=== PATIENT | male | born 1945 | race Caucasian/White ===

== ENCOUNTER 2016-06-15 12:24 | Emergency (ER) | payer MEDICAID, OTHER ==
[~2016-06-15] VITALS: Ht 170.2 cm; Wt 59.0 kg
[2016-06-15 12:27] VITALS: BP 157/103
[2016-06-15] MEDS ORDERED: ACETAMINOPH W/CODEINE #3 TAB UD PO ONE (13:15)
[2016-06-15] MEDS ORDERED: ULTR50TA PO (13:51)
--- NOTE | 2016-06-15 14:13 | REP ---
RIGHT WRIST SERIES: Four views of the right wrist are performed. There is no evidence of acute fracture or dislocation. There is moderate spurring with joint space narrowing and subchondral sclerosis at the joint between the trapezium and base of first metacarpal. IMPRESSION: Degenerative changes without fracture or dislocation. Signed by George Robins MD 06/15/2016 06:21 P
== END 2016-06-15 14:13 | disposition home or self-care (01) ==
LOC: M ED 13:15
DX: S60.211A Contusion of right wrist, initial encounter (principal); X58.XXXA Exposure to other specified factors, initial encounter; Y92.89 Other specified places as the place of occurrence of the external cause; Y93.89 Activity, other specified; Y99.8 Other external cause status; J44.9 Chronic obstructive pulmonary disease, unspecified; Z85.118 Personal history of other malignant neoplasm of bronchus and lung; Z88.0 Allergy status to penicillin; Z91.041 Radiographic dye allergy status; F17.210 Nicotine dependence, cigarettes, uncomplicated

== ENCOUNTER 2017-05-14 10:12 | Inpatient (IN) | payer OTHER ==
[2017-05-14] MEDS: methylPREDNISolone INJ 125 MG/2 ML VIAL (J2930) IV ×2 (10:45→18:26)
[2017-05-14 10:54] LABS: BASO # 0.1 10^3/uL (0.0-0.2); BASO % 0.9 % (0.0-1.0); EOS # 0.2 10^3/uL (0.0-0.50); EOS % 2.1 % (0.0-3.0); HEMATOCRIT 41.4 % (42.0-52.0); HEMOGLOBIN 13.5 g/dl (14.0-18.0); IMMATURE GRANULOCYTE % 0.4 % (0-0); LYMPH # 1.4 10^3/uL (1.5-4.5); LYMPH % 17.3 % (24.0-44.0); MEAN CORPUSCULAR HEMOGLOBIN 30.5 pg (27.0-33.0); MEAN CORPUSCULAR HGB CONC 32.6 g/dl (32.0-36.5); MEAN CORPUSCULAR VOLUME 93.5 fl (80.0-96.0); MONO # 0.7 10^3/uL (0.0-0.8); MONO % 9.1 % (0.0-5.0); NEUTROPHILS # 5.6 10^3/uL (1.8-7.7); NEUTROPHILS % 70.2 % (36.0-66.0); PLATELET COUNT, AUTOMATED 282 10^3/uL (150-450); RED BLOOD COUNT 4.43 10^6/uL (4.30-6.10); RED CELL DISTRIBUTION WIDTH 14.2 % (11.5-14.5)
[2017-05-14 11:01] LABS: ABG BASE EXCESS -2.9 (-2.0-2.0); ABG HCO3 20.3 MEQ/L (22.0-26.0); ABG PARTIAL PRESSURE CO2 30.5 mmHg (35.0-45.0); ABG PARTIAL PRESSURE O2 71.7 mmHg (75.0-100.0); ABG TOTAL CO2 21.2 MEQ/L (23.0-31.0)
[2017-05-14] MEDS: IPRATROPIUM 0.5MG/ALBUTEROL 2.5MG INH SOL UD 3ML (DUONEB)(J7620) NEB ×4 (11:13→19:29)
[2017-05-14 11:20] LABS: ANION GAP 8 MEQ/L (8-16); BLOOD UREA NITROGEN 23 MG/DL (7-18); CALCIUM LEVEL 9.7 MG/DL (8.8-10.2); CARBON DIOXIDE LEVEL 25 MEQ/L (21-32); CHLORIDE LEVEL 108 MEQ/L (98-107); CPK CREATINE PHOSPHOKINASE 108 U/L (39-308); CREATININE FOR GFR 1.31 MG/DL (0.70-1.30); GLOMERULAR FILTRATION RATE 57.4 (>42); GLUCOSE, FASTING 119 MG/DL (70-100); POTASSIUM SERUM 4.7 MEQ/L (3.5-5.1); SODIUM LEVEL 141 MEQ/L (136-145); TROPONIN I 0.09 NG/ML (< 0.10)
[2017-05-14 11:21] LABS: LACTIC ACID SEPSIS PROTOCOL 3.7 MMOL/L (0.4-2.0)
[2017-05-14 11:25] LABS: CK-MB VALUE MASS 3.5 NG/ML (0.0-3.6); MB/CK RELATIVE INDEX 3.24 (< OR =4); NT-PRO BNP 7834 PG/ML (<125)
[2017-05-14 11:52] LABS: INFLUENZA A AMPLIFICATION NEGATIVE (NEGATIVE); INFLUENZA B AMPLIFICATION NEGATIVE (NEGATIVE)
[2017-05-14] MEDS ORDERED: METOPROLOL 5 MG/5 ML VIAL As Ordered (12:35)
[2017-05-14] MEDS: METOPROLOL 5 MG/5 ML VIAL IV ×3 (12:35→12:45)
[2017-05-14] MEDS: METOPROLOL TART 50 MG TAB PO (12:45)
[2017-05-14] MEDS ORDERED: ONDANSETRON 4MG/2ML VIAL (J2405) IV (13:30)
[2017-05-14] MEDS: ENOXAPARIN 60 MG/0.6 ML SYR (J1650) SC ×2 (13:42→20:46)
[2017-05-14] MEDS ORDERED: CEFTRIAXONE SOD 2 GM in APPROPRIATE DILUENT 1 EA IV (15:00)
[2017-05-14] MEDS: AZITHROMYCIN 250 MG TAB PO (17:22)
[2017-05-14] MEDS: CEFTRIAXONE SOD 2 GM in APPROPRIATE DILUENT 1 EA IV (17:33)
[2017-05-14] MEDS: ACETAMINOPHEN TAB 650MG DOSE (2X325MG) PO (20:50)
[2017-05-15] MEDS: methylPREDNISolone INJ 125 MG/2 ML VIAL (J2930) IV ×3 (02:30→17:51)
[2017-05-15 04:41] LABS: HEMATOCRIT 33.9 % (42.0-52.0); MEAN CORPUSCULAR HEMOGLOBIN 30.3 pg (27.0-33.0); MEAN CORPUSCULAR VOLUME 91.6 fl (80.0-96.0); PLATELET COUNT, AUTOMATED 228 10^3/uL (150-450); RED CELL DISTRIBUTION WIDTH 14.2 % (11.5-14.5)
[2017-05-15 04:57] LABS: HEMOGLOBIN 11.2 g/dl (14.0-18.0)
[2017-05-15 05:01] LABS: ANION GAP 8 MEQ/L (8-16); BLOOD UREA NITROGEN 32 MG/DL (7-18); CALCIUM LEVEL 8.5 MG/DL (8.8-10.2); CARBON DIOXIDE LEVEL 23 MEQ/L (21-32); CHLORIDE LEVEL 110 MEQ/L (98-107); GLOMERULAR FILTRATION RATE 57.9 (>42); GLUCOSE, FASTING 127 MG/DL (70-100); MAGNESIUM LEVEL 1.8 MG/DL (1.8-2.4); POTASSIUM SERUM 3.9 MEQ/L (3.5-5.1); SODIUM LEVEL 141 MEQ/L (136-145)
[2017-05-15] MEDS: IPRATROPIUM 0.5MG/ALBUTEROL 2.5MG INH SOL UD 3ML (DUONEB)(J7620) NEB ×3 (07:49→15:36)
[2017-05-15] MEDS: AZITHROMYCIN 250 MG TAB PO (08:20)
[2017-05-15] MEDS: ENOXAPARIN 60 MG/0.6 ML SYR (J1650) SC ×2 (10:59→21:22)
[2017-05-15] MEDS: ACETAMINOPHEN TAB 650MG DOSE (2X325MG) PO (10:59)
[2017-05-15] MEDS: SLF 3 ML SYR IV ×2 (14:00→21:22)
[2017-05-15] MEDS: METOPROLOL 5 MG/5 ML VIAL IV ×3 (15:42→16:37)
[2017-05-15] MEDS: CEFTRIAXONE SOD 2 GM in APPROPRIATE DILUENT 1 EA IV (17:51)
[2017-05-15] MEDS: METOPROLOL TART 50 MG TAB PO (21:22)
[2017-05-16] MEDS: LEVALBUTEROL 1.25 MG/0.5 ML CONCENTRATE NEB INH ×5 (01:42→23:37)
[2017-05-16] MEDS: methylPREDNISolone INJ 125 MG/2 ML VIAL (J2930) IV ×3 (03:25→19:36)
[2017-05-16 04:37] LABS: HEMATOCRIT 34.9 % (42.0-52.0); HEMOGLOBIN 11.4 g/dl (14.0-18.0); MEAN CORPUSCULAR HEMOGLOBIN 30.2 pg (27.0-33.0); MEAN CORPUSCULAR HGB CONC 32.7 g/dl (32.0-36.5); MEAN CORPUSCULAR VOLUME 92.6 fl (80.0-96.0); PLATELET COUNT, AUTOMATED 258 10^3/uL (150-450); RED BLOOD COUNT 3.77 10^6/uL (4.30-6.10); RED CELL DISTRIBUTION WIDTH 14.6 % (11.5-14.5); WHITE BLOOD COUNT 19.3 10^3/uL (4.0-10.0)
[2017-05-16 04:49] LABS: ANION GAP 10 MEQ/L (8-16); BLOOD UREA NITROGEN 46 MG/DL (7-18); CALCIUM LEVEL 8.6 MG/DL (8.8-10.2); CARBON DIOXIDE LEVEL 21 MEQ/L (21-32); CHLORIDE LEVEL 108 MEQ/L (98-107); CREATININE FOR GFR 1.42 MG/DL (0.70-1.30); GLOMERULAR FILTRATION RATE 52.3 (>42); GLUCOSE, FASTING 121 MG/DL (70-100); MAGNESIUM LEVEL 2.1 MG/DL (1.8-2.4); POTASSIUM SERUM 4.3 MEQ/L (3.5-5.1); SODIUM LEVEL 139 MEQ/L (136-145)
[2017-05-16] MEDS: METOPROLOL TART 50 MG TAB PO ×2 (06:05→14:05)
[2017-05-16] MEDS: SLF 3 ML SYR IV ×3 (06:05→21:08)
[2017-05-16] MEDS: AZITHROMYCIN 250 MG TAB PO (09:52)
[2017-05-16] MEDS: ENOXAPARIN 60 MG/0.6 ML SYR (J1650) SC ×2 (09:52→21:08)
[2017-05-16] MEDS: CEFTRIAXONE SOD 2 GM in APPROPRIATE DILUENT 1 EA IV (17:40)
[2017-05-16] MEDS: METOPROLOL TART 25 MG TABLET PO (21:08)
[2017-05-17] MEDS: methylPREDNISolone INJ 125 MG/2 ML VIAL (J2930) IV ×3 (03:30→18:39)
[2017-05-17 05:19] LABS: HEMATOCRIT 36.5 % (42.0-52.0); HEMOGLOBIN 11.6 g/dl (14.0-18.0); MEAN CORPUSCULAR HEMOGLOBIN 30.1 pg (27.0-33.0); MEAN CORPUSCULAR HGB CONC 31.8 g/dl (32.0-36.5); MEAN CORPUSCULAR VOLUME 94.6 fl (80.0-96.0); PLATELET COUNT, AUTOMATED 265 10^3/uL (150-450); RED BLOOD COUNT 3.86 10^6/uL (4.30-6.10); RED CELL DISTRIBUTION WIDTH 14.9 % (11.5-14.5)
[2017-05-17] MEDS: METOPROLOL TART 25 MG TABLET PO ×3 (05:23→22:22)
[2017-05-17] MEDS: SLF 3 ML SYR IV ×3 (05:23→22:22)
[2017-05-17 05:36] LABS: ANION GAP 9 MEQ/L (8-16); BLOOD UREA NITROGEN 64 MG/DL (7-18); CALCIUM LEVEL 8.6 MG/DL (8.8-10.2); CARBON DIOXIDE LEVEL 24 MEQ/L (21-32); CHLORIDE LEVEL 109 MEQ/L (98-107); CREATININE FOR GFR 1.67 MG/DL (0.70-1.30); GLOMERULAR FILTRATION RATE 43.4 (>42); GLUCOSE, FASTING 113 MG/DL (70-100); MAGNESIUM LEVEL 2.4 MG/DL (1.8-2.4); POTASSIUM SERUM 4.3 MEQ/L (3.5-5.1); SODIUM LEVEL 142 MEQ/L (136-145)
[2017-05-17] MEDS: LEVALBUTEROL 1.25 MG/0.5 ML CONCENTRATE NEB INH ×4 (08:00→23:30)
[2017-05-17] MEDS: AZITHROMYCIN 250 MG TAB PO (09:58)
[2017-05-17] MEDS: ENOXAPARIN 60 MG/0.6 ML SYR (J1650) SC ×2 (09:59→22:21)
[2017-05-17] MEDS: IPRATROPIUM 0.5MG/ALBUTEROL 2.5MG INH SOL UD 3ML (DUONEB)(J7620) NEB (10:32)
[2017-05-17] MEDS: D5/0.45%NACL 1000ML IV (15:39)
[2017-05-17] MEDS: CEFTRIAXONE SOD 2 GM in APPROPRIATE DILUENT 1 EA IV (17:07)
[2017-05-18] MEDS: methylPREDNISolone INJ 125 MG/2 ML VIAL (J2930) IV ×3 (02:57→18:28)
[2017-05-18] MEDS: LEVALBUTEROL 1.25 MG/0.5 ML CONCENTRATE NEB INH ×6 (03:33→23:46)
[2017-05-18 05:31] LABS: HEMATOCRIT 34.4 % (42.0-52.0); HEMOGLOBIN 11.2 g/dl (14.0-18.0); MEAN CORPUSCULAR HEMOGLOBIN 30.4 pg (27.0-33.0); MEAN CORPUSCULAR HGB CONC 32.6 g/dl (32.0-36.5); MEAN CORPUSCULAR VOLUME 93.5 fl (80.0-96.0); PLATELET COUNT, AUTOMATED 222 10^3/uL (150-450); RED BLOOD COUNT 3.68 10^6/uL (4.30-6.10); RED CELL DISTRIBUTION WIDTH 14.6 % (11.5-14.5); WHITE BLOOD COUNT 10.6 10^3/uL (4.0-10.0)
[2017-05-18 05:57] LABS: ANION GAP 6 MEQ/L (8-16); BLOOD UREA NITROGEN 65 MG/DL (7-18); CALCIUM LEVEL 8.7 MG/DL (8.8-10.2); CARBON DIOXIDE LEVEL 27 MEQ/L (21-32); CHLORIDE LEVEL 110 MEQ/L (98-107); CREATININE FOR GFR 1.44 MG/DL (0.70-1.30); GLOMERULAR FILTRATION RATE 51.5 (>42); GLUCOSE, FASTING 116 MG/DL (70-100); MAGNESIUM LEVEL 2.6 MG/DL (1.8-2.4); POTASSIUM SERUM 4.2 MEQ/L (3.5-5.1); SODIUM LEVEL 143 MEQ/L (136-145)
[2017-05-18] MEDS: SLF 3 ML SYR IV ×3 (06:01→20:51)
[2017-05-18] MEDS: METOPROLOL TART 25 MG TABLET PO ×3 (06:01→20:51)
[2017-05-18] MEDS: TIOTROPIUM INHALER/CAPSULE (SPIRIVA) INH (08:00)
[2017-05-18] MEDS ORDERED: FORMOTEROL FUMARATE 20 MCG/2 ML INHALATION SOLUTION (PERFOROMIST) INH (08:00)
[2017-05-18] MEDS: AZITHROMYCIN 250 MG TAB PO (08:39)
[2017-05-18] MEDS: ENOXAPARIN 60 MG/0.6 ML SYR (J1650) SC ×2 (08:40→20:50)
[2017-05-18] MEDS: SODIUM CHLORIDE 0.9% 1000 ML IV (10:58)
[2017-05-18] MEDS: BUDESONIDE 0.5 MG/2 ML INHALATION SUSPENSION INH ×2 (13:41→20:06)
[2017-05-18] MEDS: CEFTRIAXONE SOD 2 GM in APPROPRIATE DILUENT 1 EA IV (17:30)
[2017-05-19] MEDS: methylPREDNISolone INJ 125 MG/2 ML VIAL (J2930) IV ×3 (02:36→18:53)
[2017-05-19 03:30] LABS: HEMATOCRIT 32.4 % (42.0-52.0); HEMOGLOBIN 10.4 g/dl (14.0-18.0); MEAN CORPUSCULAR HEMOGLOBIN 30.1 pg (27.0-33.0); MEAN CORPUSCULAR HGB CONC 32.1 g/dl (32.0-36.5); MEAN CORPUSCULAR VOLUME 93.6 fl (80.0-96.0); PLATELET COUNT, AUTOMATED 228 10^3/uL (150-450); RED BLOOD COUNT 3.46 10^6/uL (4.30-6.10); RED CELL DISTRIBUTION WIDTH 14.6 % (11.5-14.5); WHITE BLOOD COUNT 7.7 10^3/uL (4.0-10.0)
[2017-05-19 03:51] LABS: ANION GAP 5 MEQ/L (8-16); BLOOD UREA NITROGEN 68 MG/DL (7-18); CALCIUM LEVEL 8.3 MG/DL (8.8-10.2); CARBON DIOXIDE LEVEL 25 MEQ/L (21-32); CHLORIDE LEVEL 112 MEQ/L (98-107); CREATININE FOR GFR 1.33 MG/DL (0.70-1.30); GLOMERULAR FILTRATION RATE 56.4 (>42); GLUCOSE, FASTING 121 MG/DL (70-100); MAGNESIUM LEVEL 2.6 MG/DL (1.8-2.4); POTASSIUM SERUM 4.5 MEQ/L (3.5-5.1); SODIUM LEVEL 142 MEQ/L (136-145)
[2017-05-19] MEDS: SLF 3 ML SYR IV ×3 (05:29→20:52)
[2017-05-19] MEDS: METOPROLOL TART 25 MG TABLET PO (05:29)
[2017-05-19] MEDS: BUDESONIDE 0.5 MG/2 ML INHALATION SUSPENSION INH ×2 (07:13→20:33)
[2017-05-19] MEDS: LEVALBUTEROL 1.25 MG/0.5 ML CONCENTRATE NEB INH (07:14)
[2017-05-19] MEDS: TIOTROPIUM INHALER/CAPSULE (SPIRIVA) INH (07:14)
[2017-05-19] MEDS: NS 1,000 ML IV ×2 (09:53→18:54)
[2017-05-19] MEDS: ENOXAPARIN 60 MG/0.6 ML SYR (J1650) SC ×2 (09:53→20:52)
[2017-05-19] MEDS ORDERED: NS 1,000 ML IV (10:15)
[2017-05-19] MEDS: AZITHROMYCIN 250 MG TAB PO (14:06)
[2017-05-19] MEDS: CEFTRIAXONE SOD 2 GM in APPROPRIATE DILUENT 1 EA IV (17:27)
[2017-05-19] MEDS: FORMOTEROL FUMARATE 20 MCG/2 ML INHALATION SOLUTION (PERFOROMIST) INH (20:33)
[2017-05-20] MEDS: LEVALBUTEROL 1.25 MG/0.5 ML CONCENTRATE NEB INH ×2 (01:40→16:19)
[2017-05-20] MEDS: methylPREDNISolone INJ 125 MG/2 ML VIAL (J2930) IV ×3 (02:34→17:50)
[2017-05-20] MEDS: SLF 3 ML SYR IV ×4 (02:35→21:49)
[2017-05-20 05:21] LABS: HEMATOCRIT 33.1 % (42.0-52.0); HEMOGLOBIN 10.6 g/dl (14.0-18.0); MEAN CORPUSCULAR HEMOGLOBIN 29.8 pg (27.0-33.0); PLATELET COUNT, AUTOMATED 247 10^3/uL (150-450); RED BLOOD COUNT 3.56 10^6/uL (4.30-6.10); RED CELL DISTRIBUTION WIDTH 14.5 % (11.5-14.5); WHITE BLOOD COUNT 7.5 10^3/uL (4.0-10.0)
[2017-05-20 05:55] LABS: ANION GAP 8 MEQ/L (8-16); BLOOD UREA NITROGEN 59 MG/DL (7-18); CALCIUM LEVEL 8.3 MG/DL (8.8-10.2); CARBON DIOXIDE LEVEL 24 MEQ/L (21-32); CHLORIDE LEVEL 111 MEQ/L (98-107); CREATININE FOR GFR 1.21 MG/DL (0.70-1.30); GLOMERULAR FILTRATION RATE > 60.0 (>42); GLUCOSE, FASTING 128 MG/DL (70-100); MAGNESIUM LEVEL 2.6 MG/DL (1.8-2.4); SODIUM LEVEL 143 MEQ/L (136-145)
[2017-05-20] MEDS: FORMOTEROL FUMARATE 20 MCG/2 ML INHALATION SOLUTION (PERFOROMIST) INH ×2 (08:00→19:22)
[2017-05-20] MEDS: BUDESONIDE 0.5 MG/2 ML INHALATION SUSPENSION INH ×2 (08:00→19:22)
[2017-05-20] MEDS: TIOTROPIUM INHALER/CAPSULE (SPIRIVA) INH (08:00)
[2017-05-20] MEDS ORDERED: CEFTRIAXONE SOD 2 GM in APPROPRIATE DILUENT 1 EA IV (09:00)
[2017-05-20] MEDS: AZITHROMYCIN 250 MG TAB PO (09:18)
[2017-05-20] MEDS: ENOXAPARIN 60 MG/0.6 ML SYR (J1650) SC ×2 (09:19→21:49)
[2017-05-20] MEDS: NS 1,000 ML IV (11:48)
[2017-05-20] MEDS: CEFTRIAXONE SOD 2 GM in APPROPRIATE DILUENT 1 EA IV (17:50)
[2017-05-20] MEDS: METOPROLOL 5 MG/5 ML VIAL IV (19:01)
[2017-05-20] MEDS: METOPROLOL TART 25 MG TABLET PO ×2 (19:16→23:59)
[2017-05-21] MEDS: LEVALBUTEROL 1.25 MG/0.5 ML CONCENTRATE NEB INH (01:20)
[2017-05-21] MEDS: methylPREDNISolone INJ 125 MG/2 ML VIAL (J2930) IV ×3 (02:37→19:43)
[2017-05-21 05:29] LABS: HEMATOCRIT 34.9 % (42.0-52.0); HEMOGLOBIN 11.3 g/dl (14.0-18.0); MEAN CORPUSCULAR HEMOGLOBIN 30.5 pg (27.0-33.0); MEAN CORPUSCULAR HGB CONC 32.4 g/dl (32.0-36.5); MEAN CORPUSCULAR VOLUME 94.1 fl (80.0-96.0); PLATELET COUNT, AUTOMATED 257 10^3/uL (150-450); RED BLOOD COUNT 3.71 10^6/uL (4.30-6.10); RED CELL DISTRIBUTION WIDTH 14.9 % (11.5-14.5); WHITE BLOOD COUNT 11.4 10^3/uL (4.0-10.0)
[2017-05-21 05:49] LABS: ANION GAP 9 MEQ/L (8-16); BLOOD UREA NITROGEN 51 MG/DL (7-18); CALCIUM LEVEL 8.3 MG/DL (8.8-10.2); CARBON DIOXIDE LEVEL 23 MEQ/L (21-32); CHLORIDE LEVEL 111 MEQ/L (98-107); CREATININE FOR GFR 1.15 MG/DL (0.70-1.30); GLOMERULAR FILTRATION RATE > 60.0 (>42); GLUCOSE, FASTING 123 MG/DL (70-100); MAGNESIUM LEVEL 2.4 MG/DL (1.8-2.4); POTASSIUM SERUM 4.6 MEQ/L (3.5-5.1); SODIUM LEVEL 143 MEQ/L (136-145)
[2017-05-21] MEDS: METOPROLOL TART 25 MG TABLET PO (05:56)
[2017-05-21] MEDS: SLF 3 ML SYR IV ×3 (05:56→19:43)
[2017-05-21] MEDS: FORMOTEROL FUMARATE 20 MCG/2 ML INHALATION SOLUTION (PERFOROMIST) INH ×2 (08:09→20:14)
[2017-05-21] MEDS: BUDESONIDE 0.5 MG/2 ML INHALATION SUSPENSION INH ×2 (08:10→20:14)
[2017-05-21] MEDS: TIOTROPIUM INHALER/CAPSULE (SPIRIVA) INH (08:10)
[2017-05-21] MEDS: AZITHROMYCIN 250 MG TAB PO (09:13)
[2017-05-21] MEDS: ENOXAPARIN 60 MG/0.6 ML SYR (J1650) SC ×2 (09:14→19:43)
[2017-05-21] MEDS: NS 1,000 ML IV (09:14)
[2017-05-21] MEDS: METOPROLOL TART 50 MG TAB PO ×2 (11:33→17:12)
[2017-05-21] MEDS: diphenhydrAMINE INJ 50MG/ML VIAL (J1200) IM (14:49)
[2017-05-21] MEDS ORDERED: ISOVUE-370 76% 100ML VIAL (Q9967) As Ordered (16:12)
[2017-05-21] MEDS: LevoFLOXacin 500 MG TABLET PO (17:12)
[2017-05-22] MEDS: LEVALBUTEROL 1.25 MG/0.5 ML CONCENTRATE NEB INH ×2 (00:12→13:20)
[2017-05-22] MEDS: METOPROLOL TART 50 MG TAB PO ×4 (01:13→18:35)
[2017-05-22] MEDS: methylPREDNISolone INJ 125 MG/2 ML VIAL (J2930) IV ×3 (03:46→18:34)
[2017-05-22] MEDS: SLF 3 ML SYR IV ×2 (06:00→11:43)
[2017-05-22] MEDS: LevoFLOXacin 500 MG TABLET PO (06:00)
[2017-05-22] MEDS: BUDESONIDE 0.5 MG/2 ML INHALATION SUSPENSION INH ×2 (07:07→18:40)
[2017-05-22] MEDS: FORMOTEROL FUMARATE 20 MCG/2 ML INHALATION SOLUTION (PERFOROMIST) INH ×2 (07:07→18:40)
[2017-05-22] MEDS: TIOTROPIUM INHALER/CAPSULE (SPIRIVA) INH (07:07)
[2017-05-22 08:36] LABS: HEMATOCRIT 36.7 % (42.0-52.0); HEMOGLOBIN 11.6 g/dl (14.0-18.0); MEAN CORPUSCULAR HEMOGLOBIN 30.6 pg (27.0-33.0); MEAN CORPUSCULAR HGB CONC 31.6 g/dl (32.0-36.5); MEAN CORPUSCULAR VOLUME 96.8 fl (80.0-96.0); PLATELET COUNT, AUTOMATED 259 10^3/uL (150-450); RED BLOOD COUNT 3.79 10^6/uL (4.30-6.10); RED CELL DISTRIBUTION WIDTH 15.2 % (11.5-14.5); WHITE BLOOD COUNT 12.1 10^3/uL (4.0-10.0)
[2017-05-22] MEDS: ENOXAPARIN 60 MG/0.6 ML SYR (J1650) SC ×2 (08:56→21:19)
[2017-05-22 08:57] LABS: ANION GAP 6 MEQ/L (8-16); BLOOD UREA NITROGEN 58 MG/DL (7-18); CALCIUM LEVEL 8.4 MG/DL (8.8-10.2); CARBON DIOXIDE LEVEL 25 MEQ/L (21-32); CHLORIDE LEVEL 112 MEQ/L (98-107); CREATININE FOR GFR 1.34 MG/DL (0.70-1.30); GLOMERULAR FILTRATION RATE 55.9 (>42); GLUCOSE, FASTING 157 MG/DL (70-100); MAGNESIUM LEVEL 2.4 MG/DL (1.8-2.4); SODIUM LEVEL 143 MEQ/L (136-145)
[2017-05-22 08:58] LABS: POTASSIUM SERUM 5.7 MEQ/L (3.5-5.1)
[2017-05-22 14:36] LABS: ANION GAP 6 MEQ/L (8-16); BLOOD UREA NITROGEN 59 MG/DL (7-18); CALCIUM LEVEL 8.5 MG/DL (8.8-10.2); CARBON DIOXIDE LEVEL 25 MEQ/L (21-32); CHLORIDE LEVEL 111 MEQ/L (98-107); CREATININE FOR GFR 1.22 MG/DL (0.70-1.30); GLOMERULAR FILTRATION RATE > 60.0 (>42); GLUCOSE, FASTING 118 MG/DL (70-100); SODIUM LEVEL 142 MEQ/L (136-145)
[2017-05-22 14:38] LABS: POTASSIUM SERUM 5.4 MEQ/L (3.5-5.1)
[2017-05-22] MEDS: PANTOPRAZOLE 40MG TAB (PROTONIX) PO (21:19)
[2017-05-23] MEDS: METOPROLOL TART 50 MG TAB PO ×4 (00:14→18:23)
[2017-05-23] MEDS: SLF 3 ML SYR IV ×4 (00:15→20:27)
[2017-05-23] MEDS: methylPREDNISolone INJ 125 MG/2 ML VIAL (J2930) IV ×3 (02:57→18:22)
[2017-05-23] MEDS: LEVALBUTEROL 1.25 MG/0.5 ML CONCENTRATE NEB INH (02:57)
[2017-05-23 04:13] LABS: HEMATOCRIT 37.8 % (42.0-52.0); MEAN CORPUSCULAR HEMOGLOBIN 30.4 pg (27.0-33.0); MEAN CORPUSCULAR HGB CONC 31.7 g/dl (32.0-36.5); MEAN CORPUSCULAR VOLUME 95.7 fl (80.0-96.0); PLATELET COUNT, AUTOMATED 251 10^3/uL (150-450); RED BLOOD COUNT 3.95 10^6/uL (4.30-6.10); RED CELL DISTRIBUTION WIDTH 15.1 % (11.5-14.5); WHITE BLOOD COUNT 12.3 10^3/uL (4.0-10.0)
[2017-05-23 04:27] LABS: ANION GAP 5 MEQ/L (8-16); BLOOD UREA NITROGEN 61 MG/DL (7-18); CALCIUM LEVEL 8.5 MG/DL (8.8-10.2); CARBON DIOXIDE LEVEL 27 MEQ/L (21-32); CHLORIDE LEVEL 112 MEQ/L (98-107); CREATININE FOR GFR 1.35 MG/DL (0.70-1.30); GLOMERULAR FILTRATION RATE 55.5 (>42); GLUCOSE, FASTING 120 MG/DL (70-100); MAGNESIUM LEVEL 2.5 MG/DL (1.8-2.4); SODIUM LEVEL 144 MEQ/L (136-145)
[2017-05-23 04:28] LABS: POTASSIUM SERUM 5.9 MEQ/L (3.5-5.1)
[2017-05-23] MEDS: LevoFLOXacin 500 MG TABLET PO (06:38)
[2017-05-23] MEDS: FORMOTEROL FUMARATE 20 MCG/2 ML INHALATION SOLUTION (PERFOROMIST) INH ×2 (07:05→19:57)
[2017-05-23] MEDS: TIOTROPIUM INHALER/CAPSULE (SPIRIVA) INH (07:05)
[2017-05-23] MEDS: BUDESONIDE 0.5 MG/2 ML INHALATION SUSPENSION INH ×2 (07:05→19:57)
[2017-05-23 08:31] LABS: BASO % 0.1 % (0.0-1.0); HEMATOCRIT 35.4 % (42.0-52.0); HEMOGLOBIN 11.5 g/dl (14.0-18.0); LYMPH # 0.4 10^3/uL (1.5-4.5); LYMPH % 3.7 % (24.0-44.0); MEAN CORPUSCULAR HGB CONC 32.5 g/dl (32.0-36.5); MEAN CORPUSCULAR VOLUME 95.4 fl (80.0-96.0); MONO # 0.3 10^3/uL (0.0-0.8); MONO % 3.1 % (0.0-5.0); NEUTROPHILS # 10.1 10^3/uL (1.8-7.7); NEUTROPHILS % 92.1 % (36.0-66.0); PLATELET COUNT, AUTOMATED 254 10^3/uL (150-450); RED BLOOD COUNT 3.71 10^6/uL (4.30-6.10); RED CELL DISTRIBUTION WIDTH 14.9 % (11.5-14.5)
[2017-05-23] MEDS: PANTOPRAZOLE 40MG TAB (PROTONIX) PO (09:31)
[2017-05-23] MEDS: ENOXAPARIN 60 MG/0.6 ML SYR (J1650) SC (09:31)
[2017-05-23] MEDS: SOD POLYSTYRENE SULFONATE SUSP 15 GM/60 ML UD PO (09:34)
[2017-05-23 12:04] LABS: ABG BASE EXCESS -2.7 (-2.0-2.0); ABG HCO3 20.3 MEQ/L (22.0-26.0); ABG O2 SATURATION 98.6 % (95.0-99.0); ABG PARTIAL PRESSURE CO2 29.7 mmHg (35.0-45.0); ABG PARTIAL PRESSURE O2 124.1 mmHg (75.0-100.0); ABG STANDARD HCO3 22.2 MEQ/L (22.0-26.0); ABG TOTAL CO2 21.2 MEQ/L (23.0-31.0); ABG pH (ARTERIAL) 7.453 UNITS (7.350-7.450)
[2017-05-23] MEDS: APIXABAN 5 MG TAB (ELIQUIS) PO (20:26)
[2017-05-24] MEDS: LEVALBUTEROL 1.25 MG/0.5 ML CONCENTRATE NEB INH (02:52)
[2017-05-24 04:09] LABS: HEMATOCRIT 34.4 % (42.0-52.0); HEMOGLOBIN 10.9 g/dl (14.0-18.0); MEAN CORPUSCULAR HEMOGLOBIN 29.9 pg (27.0-33.0); MEAN CORPUSCULAR HGB CONC 31.7 g/dl (32.0-36.5); MEAN CORPUSCULAR VOLUME 94.2 fl (80.0-96.0); PLATELET COUNT, AUTOMATED 226 10^3/uL (150-450); RED BLOOD COUNT 3.65 10^6/uL (4.30-6.10); RED CELL DISTRIBUTION WIDTH 14.8 % (11.5-14.5); WHITE BLOOD COUNT 13.4 10^3/uL (4.0-10.0)
[2017-05-24] MEDS: methylPREDNISolone INJ 125 MG/2 ML VIAL (J2930) IV ×3 (04:12→18:40)
[2017-05-24 04:22] LABS: ANION GAP 7 MEQ/L (8-16); BLOOD UREA NITROGEN 56 MG/DL (7-18); CALCIUM LEVEL 8.2 MG/DL (8.8-10.2); CARBON DIOXIDE LEVEL 28 MEQ/L (21-32); CHLORIDE LEVEL 110 MEQ/L (98-107); CREATININE FOR GFR 1.19 MG/DL (0.70-1.30); GLOMERULAR FILTRATION RATE > 60.0 (>42); GLUCOSE, FASTING 118 MG/DL (70-100); MAGNESIUM LEVEL 2.3 MG/DL (1.8-2.4); POTASSIUM SERUM 4.6 MEQ/L (3.5-5.1); SODIUM LEVEL 145 MEQ/L (136-145)
[2017-05-24] MEDS: METOPROLOL TART 50 MG TAB PO ×4 (05:57→18:40)
[2017-05-24] MEDS: SLF 3 ML SYR IV ×3 (06:00→21:06)
[2017-05-24] MEDS: BUDESONIDE 0.5 MG/2 ML INHALATION SUSPENSION INH ×2 (07:07→20:35)
[2017-05-24] MEDS: FORMOTEROL FUMARATE 20 MCG/2 ML INHALATION SOLUTION (PERFOROMIST) INH ×2 (07:07→20:35)
[2017-05-24] MEDS: TIOTROPIUM INHALER/CAPSULE (SPIRIVA) INH (07:07)
[2017-05-24 08:49] LABS: C REACTIVE PROTEIN QUANTITATIV < 0.30 MG/DL (0.00-0.30)
[2017-05-24] MEDS: PANTOPRAZOLE 40MG TAB (PROTONIX) PO (09:02)
[2017-05-24] MEDS: APIXABAN 5 MG TAB (ELIQUIS) PO ×2 (09:02→21:06)
[2017-05-24] MEDS: ALPRAZolam 0.25 MG TAB PO ×2 (10:02→21:06)
[2017-05-24] MEDS: FUROSEMIDE 20 MG/2 ML VIAL (J1940) IV (10:02)
[2017-05-25] MEDS: METOPROLOL TART 50 MG TAB PO ×5 (00:47→23:55)
[2017-05-25] MEDS: methylPREDNISolone INJ 125 MG/2 ML VIAL (J2930) IV ×3 (03:21→19:42)
[2017-05-25 05:12] LABS: HEMATOCRIT 30.9 % (42.0-52.0); HEMOGLOBIN 10.3 g/dl (14.0-18.0); MEAN CORPUSCULAR HEMOGLOBIN 30.2 pg (27.0-33.0); MEAN CORPUSCULAR HGB CONC 33.3 g/dl (32.0-36.5); MEAN CORPUSCULAR VOLUME 90.6 fl (80.0-96.0); PLATELET COUNT, AUTOMATED 196 10^3/uL (150-450); RED BLOOD COUNT 3.41 10^6/uL (4.30-6.10); RED CELL DISTRIBUTION WIDTH 14.5 % (11.5-14.5); WHITE BLOOD COUNT 14.6 10^3/uL (4.0-10.0)
[2017-05-25 05:32] LABS: ANION GAP 8 MEQ/L (8-16); BLOOD UREA NITROGEN 47 MG/DL (7-18); CARBON DIOXIDE LEVEL 29 MEQ/L (21-32); CHLORIDE LEVEL 106 MEQ/L (98-107); CREATININE FOR GFR 1.07 MG/DL (0.70-1.30); GLOMERULAR FILTRATION RATE > 60.0 (>42); GLUCOSE, FASTING 118 MG/DL (70-100); MAGNESIUM LEVEL 2.1 MG/DL (1.8-2.4); POTASSIUM SERUM 3.4 MEQ/L (3.5-5.1); SODIUM LEVEL 143 MEQ/L (136-145)
[2017-05-25] MEDS: SLF 3 ML SYR IV ×5 (05:55→20:00)
[2017-05-25] MEDS: FUROSEMIDE 40 MG/4 ML VIAL (J1940) IV (09:18)
[2017-05-25] MEDS: APIXABAN 5 MG TAB (ELIQUIS) PO ×2 (09:24→20:00)
[2017-05-25] MEDS: ALPRAZolam 0.25 MG TAB PO ×2 (09:24→20:00)
[2017-05-25] MEDS: PANTOPRAZOLE 40MG TAB (PROTONIX) PO (09:24)
[2017-05-25] MEDS: POTASSIUM CHLORIDE 10 MEQ SR TABLET PO (09:24)
[2017-05-25] MEDS: BUDESONIDE 0.5 MG/2 ML INHALATION SUSPENSION INH ×2 (09:30→20:56)
[2017-05-25] MEDS: FORMOTEROL FUMARATE 20 MCG/2 ML INHALATION SOLUTION (PERFOROMIST) INH ×2 (09:30→20:56)
[2017-05-25] MEDS: TIOTROPIUM INHALER/CAPSULE (SPIRIVA) INH (09:30)
[2017-05-26] MEDS: methylPREDNISolone INJ 125 MG/2 ML VIAL (J2930) IV ×2 (03:58→12:02)
[2017-05-26] MEDS: SLF 3 ML SYR IV ×3 (03:59→20:58)
[2017-05-26] MEDS: LEVALBUTEROL 1.25 MG/0.5 ML CONCENTRATE NEB INH ×2 (04:11→15:35)
[2017-05-26] MEDS: METOPROLOL TART 50 MG TAB PO ×2 (05:17→12:05)
[2017-05-26 06:25] LABS: HEMATOCRIT 36.7 % (42.0-52.0); HEMOGLOBIN 12.1 g/dl (14.0-18.0); MEAN CORPUSCULAR VOLUME 94.1 fl (80.0-96.0); PLATELET COUNT, AUTOMATED 217 10^3/uL (150-450); RED CELL DISTRIBUTION WIDTH 14.6 % (11.5-14.5); WHITE BLOOD COUNT 21.2 10^3/uL (4.0-10.0)
[2017-05-26 06:32] LABS: ANION GAP 7 MEQ/L (8-16); BLOOD UREA NITROGEN 35 MG/DL (7-18); CALCIUM LEVEL 8.2 MG/DL (8.8-10.2); CARBON DIOXIDE LEVEL 36 MEQ/L (21-32); CHLORIDE LEVEL 103 MEQ/L (98-107); CREATININE FOR GFR 1.02 MG/DL (0.70-1.30); GLOMERULAR FILTRATION RATE > 60.0 (>42); GLUCOSE, FASTING 111 MG/DL (70-100); POTASSIUM SERUM 4.1 MEQ/L (3.5-5.1); SODIUM LEVEL 146 MEQ/L (136-145)
[2017-05-26] MEDS: BUDESONIDE 0.5 MG/2 ML INHALATION SUSPENSION INH ×2 (07:11→20:05)
[2017-05-26] MEDS: FORMOTEROL FUMARATE 20 MCG/2 ML INHALATION SOLUTION (PERFOROMIST) INH ×2 (07:11→20:05)
[2017-05-26] MEDS: TIOTROPIUM INHALER/CAPSULE (SPIRIVA) INH (07:11)
[2017-05-26 08:22] LABS: C REACTIVE PROTEIN QUANTITATIV < 0.30 MG/DL (0.00-0.30)
[2017-05-26] MEDS: PANTOPRAZOLE 40MG TAB (PROTONIX) PO (08:28)
[2017-05-26] MEDS: APIXABAN 5 MG TAB (ELIQUIS) PO ×2 (08:28→20:58)
[2017-05-26] MEDS: ALPRAZolam 0.25 MG TAB PO ×2 (08:29→21:04)
[2017-05-26] MEDS: predniSONE 20 MG TAB PO (20:58)
[2017-05-26] MEDS: METOPROLOL TART 25 MG TABLET PO (21:03)
[2017-05-27] MEDS: SLF 3 ML SYR IV ×3 (04:35→20:53)
[2017-05-27 07:12] LABS: HEMATOCRIT 35.8 % (42.0-52.0); HEMOGLOBIN 11.9 g/dl (14.0-18.0); MEAN CORPUSCULAR HEMOGLOBIN 30.9 pg (27.0-33.0); MEAN CORPUSCULAR HGB CONC 33.2 g/dl (32.0-36.5); PLATELET COUNT, AUTOMATED 198 10^3/uL (150-450); RED BLOOD COUNT 3.85 10^6/uL (4.30-6.10); RED CELL DISTRIBUTION WIDTH 14.6 % (11.5-14.5); WHITE BLOOD COUNT 23.3 10^3/uL (4.0-10.0)
[2017-05-27 07:37] LABS: ANION GAP 4 MEQ/L (8-16); BLOOD UREA NITROGEN 32 MG/DL (7-18); CALCIUM LEVEL 7.4 MG/DL (8.8-10.2); CARBON DIOXIDE LEVEL 37 MEQ/L (21-32); CHLORIDE LEVEL 100 MEQ/L (98-107); CREATININE FOR GFR 0.86 MG/DL (0.70-1.30); GLOMERULAR FILTRATION RATE > 60.0 (>42); GLUCOSE, FASTING 110 MG/DL (70-100); POTASSIUM SERUM 3.2 MEQ/L (3.5-5.1); SODIUM LEVEL 141 MEQ/L (136-145)
[2017-05-27 08:14] LABS: C REACTIVE PROTEIN QUANTITATIV < 0.30 MG/DL (0.00-0.30)
[2017-05-27] MEDS: PANTOPRAZOLE 40MG TAB (PROTONIX) PO (08:20)
[2017-05-27] MEDS: APIXABAN 5 MG TAB (ELIQUIS) PO ×2 (08:21→20:52)
[2017-05-27] MEDS: predniSONE 20 MG TAB PO ×2 (08:21→20:53)
[2017-05-27] MEDS: METOPROLOL TART 25 MG TABLET PO ×2 (08:21→20:52)
[2017-05-27] MEDS: BUDESONIDE 0.5 MG/2 ML INHALATION SUSPENSION INH ×2 (09:22→20:32)
[2017-05-27] MEDS: TIOTROPIUM INHALER/CAPSULE (SPIRIVA) INH (09:22)
[2017-05-27] MEDS: FORMOTEROL FUMARATE 20 MCG/2 ML INHALATION SOLUTION (PERFOROMIST) INH ×2 (09:22→20:32)
[2017-05-27] MEDS: POTASSIUM CHLORIDE 10 MEQ SR TABLET PO (09:58)
[2017-05-27] MEDS: KCL 10MEQ IN 100ML SWI (KRUN) 10 MEQ in APPROPRIATE DILUENT 1 EA IV ×2 (09:58→11:04)
[2017-05-27] MEDS: FUROSEMIDE 40 MG TAB PO (11:04)
[2017-05-28] MEDS: SLF 3 ML SYR IV ×3 (05:35→20:33)
[2017-05-28] MEDS: BUDESONIDE 0.5 MG/2 ML INHALATION SUSPENSION INH ×2 (07:03→20:27)
[2017-05-28] MEDS: TIOTROPIUM INHALER/CAPSULE (SPIRIVA) INH (07:03)
[2017-05-28] MEDS: FORMOTEROL FUMARATE 20 MCG/2 ML INHALATION SOLUTION (PERFOROMIST) INH ×2 (07:03→20:27)
[2017-05-28 07:22] LABS: BASO % 0.2 % (0.0-1.0); HEMATOCRIT 35.7 % (42.0-52.0); IMMATURE GRANULOCYTE % 1.3 % (0-3.0); LYMPH # 0.5 10^3/uL (1.5-4.5); LYMPH % 2.1 % (24.0-44.0); MEAN CORPUSCULAR HEMOGLOBIN 31.1 pg (27.0-33.0); MEAN CORPUSCULAR HGB CONC 33.6 g/dl (32.0-36.5); MEAN CORPUSCULAR VOLUME 92.5 fl (80.0-96.0); MONO # 0.6 10^3/uL (0.0-0.8); MONO % 2.5 % (0.0-5.0); NEUTROPHILS # 21.2 10^3/uL (1.8-7.7); NEUTROPHILS % 93.9 % (36.0-66.0); PLATELET COUNT, AUTOMATED 190 10^3/uL (150-450); RED BLOOD COUNT 3.86 10^6/uL (4.30-6.10); RED CELL DISTRIBUTION WIDTH 14.7 % (11.5-14.5); WHITE BLOOD COUNT 22.5 10^3/uL (4.0-10.0)
[2017-05-28 07:38] LABS: ANION GAP 5 MEQ/L (8-16); BLOOD UREA NITROGEN 35 MG/DL (7-18); C REACTIVE PROTEIN QUANTITATIV < 0.30 MG/DL (0.00-0.30); CALCIUM LEVEL 7.9 MG/DL (8.8-10.2); CARBON DIOXIDE LEVEL 35 MEQ/L (21-32); CHLORIDE LEVEL 102 MEQ/L (98-107); CREATININE FOR GFR 1.03 MG/DL (0.70-1.30); GLOMERULAR FILTRATION RATE > 60.0 (>42); GLUCOSE, FASTING 115 MG/DL (70-100); POTASSIUM SERUM 3.4 MEQ/L (3.5-5.1); SODIUM LEVEL 142 MEQ/L (136-145)
[2017-05-28] MEDS: PANTOPRAZOLE 40MG TAB (PROTONIX) PO (09:27)
[2017-05-28] MEDS: APIXABAN 5 MG TAB (ELIQUIS) PO ×2 (09:27→20:32)
[2017-05-28] MEDS: METOPROLOL TART 25 MG TABLET PO (09:27)
[2017-05-28] MEDS: predniSONE 20 MG TAB PO ×2 (09:27→20:32)
[2017-05-28] MEDS: ALPRAZolam 0.25 MG TAB PO (09:32)
[2017-05-28 11:14] LABS: ERYTHROCYTE SEDIMENTATION RATE 10 mm/hr (0-20)
[2017-05-28] MEDS: POTASSIUM CHLORIDE 10 MEQ SR TABLET PO (13:01)
[2017-05-28] MEDS: METOPROLOL TARTRATE 100 MG TAB PO (20:33)
[2017-05-29] MEDS: SLF 3 ML SYR IV ×3 (05:23→20:57)
[2017-05-29 05:55] LABS: BASO % 0.1 % (0.0-1.0); HEMATOCRIT 33.4 % (42.0-52.0); HEMOGLOBIN 11.1 g/dl (14.0-18.0); IMMATURE GRANULOCYTE % 1.1 % (0-3.0); LYMPH # 0.4 10^3/uL (1.5-4.5); LYMPH % 2.2 % (24.0-44.0); MEAN CORPUSCULAR HEMOGLOBIN 30.7 pg (27.0-33.0); MEAN CORPUSCULAR HGB CONC 33.2 g/dl (32.0-36.5); MEAN CORPUSCULAR VOLUME 92.5 fl (80.0-96.0); MONO # 0.4 10^3/uL (0.0-0.8); MONO % 2.3 % (0.0-5.0); NEUTROPHILS # 17.2 10^3/uL (1.8-7.7); NEUTROPHILS % 94.3 % (36.0-66.0); PLATELET COUNT, AUTOMATED 155 10^3/uL (150-450); RED BLOOD COUNT 3.61 10^6/uL (4.30-6.10); RED CELL DISTRIBUTION WIDTH 14.9 % (11.5-14.5); WHITE BLOOD COUNT 18.3 10^3/uL (4.0-10.0)
[2017-05-29 06:16] LABS: ANION GAP 8 MEQ/L (8-16); BLOOD UREA NITROGEN 37 MG/DL (7-18); CALCIUM LEVEL 7.3 MG/DL (8.8-10.2); CARBON DIOXIDE LEVEL 32 MEQ/L (21-32); CHLORIDE LEVEL 104 MEQ/L (98-107); CREATININE FOR GFR 0.95 MG/DL (0.70-1.30); GLOMERULAR FILTRATION RATE > 60.0 (>42); GLUCOSE, FASTING 133 MG/DL (70-100); POTASSIUM SERUM 3.6 MEQ/L (3.5-5.1); SODIUM LEVEL 144 MEQ/L (136-145)
[2017-05-29] MEDS: predniSONE 20 MG TAB PO ×2 (08:27→20:55)
[2017-05-29] MEDS: PANTOPRAZOLE 40MG TAB (PROTONIX) PO (08:28)
[2017-05-29] MEDS: APIXABAN 5 MG TAB (ELIQUIS) PO ×2 (08:28→20:55)
[2017-05-29] MEDS: METOPROLOL TARTRATE 100 MG TAB PO ×2 (08:28→20:56)
[2017-05-29] MEDS: FORMOTEROL FUMARATE 20 MCG/2 ML INHALATION SOLUTION (PERFOROMIST) INH ×2 (12:59→20:35)
[2017-05-29] MEDS: TIOTROPIUM INHALER/CAPSULE (SPIRIVA) INH (12:59)
[2017-05-29] MEDS: BUDESONIDE 0.5 MG/2 ML INHALATION SUSPENSION INH ×2 (12:59→20:35)
[2017-05-29 13:11] LABS: ABG BASE EXCESS 5.4 (-2.0-2.0); ABG HCO3 29.1 MEQ/L (22.0-26.0); ABG O2 SATURATION 97.1 % (95.0-99.0); ABG PARTIAL PRESSURE CO2 39.4 mmHg (35.0-45.0); ABG PARTIAL PRESSURE O2 87.1 mmHg (75.0-100.0); ABG STANDARD HCO3 29.4 MEQ/L (22.0-26.0); ABG TOTAL CO2 30.4 MEQ/L (23.0-31.0); ABG pH (ARTERIAL) 7.487 UNITS (7.350-7.450)
[2017-05-30] MEDS: LEVALBUTEROL 1.25 MG/0.5 ML CONCENTRATE NEB INH ×2 (05:17→14:55)
[2017-05-30] MEDS: SLF 3 ML SYR IV ×3 (06:15→21:38)
[2017-05-30] MEDS: FORMOTEROL FUMARATE 20 MCG/2 ML INHALATION SOLUTION (PERFOROMIST) INH ×2 (07:05→20:27)
[2017-05-30] MEDS: TIOTROPIUM INHALER/CAPSULE (SPIRIVA) INH (07:05)
[2017-05-30] MEDS: BUDESONIDE 0.5 MG/2 ML INHALATION SUSPENSION INH ×2 (07:05→20:27)
[2017-05-30] MEDS: APIXABAN 5 MG TAB (ELIQUIS) PO ×2 (09:04→21:37)
[2017-05-30] MEDS: predniSONE 20 MG TAB PO (09:04)
[2017-05-30] MEDS: METOPROLOL TARTRATE 100 MG TAB PO (09:04)
[2017-05-30] MEDS: PANTOPRAZOLE 40MG TAB (PROTONIX) PO (09:04)
[2017-05-30] MEDS: ALPRAZolam 0.25 MG TAB PO ×2 (09:10→21:41)
[2017-05-30 09:16] LABS: BASO % 0.1 % (0.0-1.0); HEMATOCRIT 36.5 % (42.0-52.0); HEMOGLOBIN 12.2 g/dl (14.0-18.0); IMMATURE GRANULOCYTE % 1.1 % (0-3.0); LYMPH # 0.4 10^3/uL (1.5-4.5); LYMPH % 1.8 % (24.0-44.0); MEAN CORPUSCULAR HEMOGLOBIN 30.8 pg (27.0-33.0); MEAN CORPUSCULAR HGB CONC 33.4 g/dl (32.0-36.5); MEAN CORPUSCULAR VOLUME 92.2 fl (80.0-96.0); MONO # 0.5 10^3/uL (0.0-0.8); MONO % 2.3 % (0.0-5.0); NEUTROPHILS # 20.2 10^3/uL (1.8-7.7); NEUTROPHILS % 94.7 % (36.0-66.0); PLATELET COUNT, AUTOMATED 161 10^3/uL (150-450); RED BLOOD COUNT 3.96 10^6/uL (4.30-6.10); WHITE BLOOD COUNT 21.3 10^3/uL (4.0-10.0)
[2017-05-30 09:34] LABS: ANION GAP 9 MEQ/L (8-16); BLOOD UREA NITROGEN 42 MG/DL (7-18); CALCIUM LEVEL 7.9 MG/DL (8.8-10.2); CARBON DIOXIDE LEVEL 31 MEQ/L (21-32); CHLORIDE LEVEL 103 MEQ/L (98-107); CREATININE FOR GFR 1.08 MG/DL (0.70-1.30); GLOMERULAR FILTRATION RATE > 60.0 (>42); GLUCOSE, FASTING 138 MG/DL (70-100); POTASSIUM SERUM 3.4 MEQ/L (3.5-5.1); SODIUM LEVEL 143 MEQ/L (136-145)
[2017-05-30] MEDS: POTASSIUM CHLORIDE 10 MEQ SR TABLET PO (15:33)
[2017-05-30] MEDS: METOPROLOL SUCC (TopROL XL) 100MG *XL* TAB PO (21:38)
[2017-05-31] MEDS: SLF 3 ML SYR IV ×3 (04:28→22:31)
[2017-05-31 05:41] LABS: HEMATOCRIT 34.1 % (42.0-52.0); HEMOGLOBIN 11.4 g/dl (14.0-18.0); MEAN CORPUSCULAR HEMOGLOBIN 30.7 pg (27.0-33.0); MEAN CORPUSCULAR HGB CONC 33.4 g/dl (32.0-36.5); MEAN CORPUSCULAR VOLUME 91.9 fl (80.0-96.0); PLATELET COUNT, AUTOMATED 144 10^3/uL (150-450); RED BLOOD COUNT 3.71 10^6/uL (4.30-6.10); RED CELL DISTRIBUTION WIDTH 15.3 % (11.5-14.5); WHITE BLOOD COUNT 21.2 10^3/uL (4.0-10.0)
[2017-05-31 06:05] LABS: ANION GAP 9 MEQ/L (8-16); BLOOD UREA NITROGEN 40 MG/DL (7-18); CALCIUM LEVEL 7.8 MG/DL (8.8-10.2); CARBON DIOXIDE LEVEL 31 MEQ/L (21-32); CHLORIDE LEVEL 106 MEQ/L (98-107); CREATININE FOR GFR 1.11 MG/DL (0.70-1.30); GLOMERULAR FILTRATION RATE > 60.0 (>42); GLUCOSE, FASTING 125 MG/DL (70-100); POTASSIUM SERUM 4.2 MEQ/L (3.5-5.1); SODIUM LEVEL 146 MEQ/L (136-145)
[2017-05-31] MEDS: FORMOTEROL FUMARATE 20 MCG/2 ML INHALATION SOLUTION (PERFOROMIST) INH ×2 (06:52→21:26)
[2017-05-31] MEDS: TIOTROPIUM INHALER/CAPSULE (SPIRIVA) INH (06:52)
[2017-05-31] MEDS: BUDESONIDE 0.5 MG/2 ML INHALATION SUSPENSION INH ×2 (06:52→21:26)
[2017-05-31] MEDS: APIXABAN 5 MG TAB (ELIQUIS) PO ×2 (08:52→21:53)
[2017-05-31] MEDS: ALPRAZolam 0.25 MG TAB PO ×2 (08:52→22:31)
[2017-05-31] MEDS: predniSONE 20 MG TAB PO (08:52)
[2017-05-31] MEDS: PANTOPRAZOLE 40MG TAB (PROTONIX) PO (08:52)
[2017-05-31] MEDS: METOPROLOL SUCC (TopROL XL) 100MG *XL* TAB PO ×2 (08:57→21:53)
[2017-06-01 04:15] LABS: HEMOGLOBIN 11.4 g/dl (14.0-18.0); MEAN CORPUSCULAR HEMOGLOBIN 30.5 pg (27.0-33.0); MEAN CORPUSCULAR HGB CONC 32.6 g/dl (32.0-36.5); MEAN CORPUSCULAR VOLUME 93.6 fl (80.0-96.0); PLATELET COUNT, AUTOMATED 124 10^3/uL (150-450); RED BLOOD COUNT 3.74 10^6/uL (4.30-6.10); RED CELL DISTRIBUTION WIDTH 15.5 % (11.5-14.5); WHITE BLOOD COUNT 18.8 10^3/uL (4.0-10.0)
[2017-06-01 04:36] LABS: ANION GAP 3 MEQ/L (8-16); BLOOD UREA NITROGEN 37 MG/DL (7-18); CALCIUM LEVEL 7.7 MG/DL (8.8-10.2); CARBON DIOXIDE LEVEL 35 MEQ/L (21-32); CHLORIDE LEVEL 108 MEQ/L (98-107); GLOMERULAR FILTRATION RATE > 60.0 (>42); GLUCOSE, FASTING 88 MG/DL (70-100); MAGNESIUM LEVEL 2.2 MG/DL (1.8-2.4); POTASSIUM SERUM 4.6 MEQ/L (3.5-5.1); SODIUM LEVEL 146 MEQ/L (136-145)
[2017-06-01] MEDS: SLF 3 ML SYR IV (06:02)
[2017-06-01] MEDS: BUDESONIDE 0.5 MG/2 ML INHALATION SUSPENSION INH (07:09)
[2017-06-01] MEDS: FORMOTEROL FUMARATE 20 MCG/2 ML INHALATION SOLUTION (PERFOROMIST) INH (07:09)
[2017-06-01] MEDS: TIOTROPIUM INHALER/CAPSULE (SPIRIVA) INH (07:10)
[2017-06-01] MEDS: APIXABAN 5 MG TAB (ELIQUIS) PO (08:45)
[2017-06-01] MEDS: PANTOPRAZOLE 40MG TAB (PROTONIX) PO (08:45)
[2017-06-01] MEDS: predniSONE 20 MG TAB PO (08:45)
[2017-06-01] MEDS: METOPROLOL SUCC (TopROL XL) 100MG *XL* TAB PO (08:47)
[2017-06-01] MEDS: ALPRAZolam 0.25 MG TAB PO (08:56)
== END 2017-06-01 14:48 | disposition home or self-care (01) | DRG 181 ==
LOC: M PCU 05-15 04:56 → M ED 10:12 → M ED INP 13:28 → M ICU 15:38
DX: C34.01 Malignant neoplasm of right main bronchus (principal); J44.1 Chronic obstructive pulmonary disease with (acute) exacerbation; E87.2 Acidosis; N17.9 Acute kidney failure, unspecified; I50.22 Chronic systolic (congestive) heart failure; I47.2 Ventricular tachycardia; I48.91 Unspecified atrial fibrillation; E87.6 Hypokalemia; F41.9 Anxiety disorder, unspecified; F17.200 Nicotine dependence, unspecified, uncomplicated; Z91.041 Radiographic dye allergy status; Z88.0 Allergy status to penicillin; I11.0 Hypertensive heart disease with heart failure; N40.0 Benign prostatic hyperplasia without lower urinary tract symptoms; B18.2 Chronic viral hepatitis C; K57.30 Diverticulosis of large intestine without perforation or abscess without bleeding; I27.20 Pulmonary hypertension, unspecified

== ENCOUNTER 2018-06-18 12:14 | Inpatient (IN) | payer MEDICARE, OTHER ==
[~2018-06-18] VITALS: Ht 170.2 cm; Wt 53.0 kg
[~2018-06-18 12:14] MED LIST: ALPR0.25 PO; BUDE0.5S6 INH; ELIQ5TAB PO; METO1TAB33 PO; PANT40TA3 PO; PERF20NE2 INH; PRED10TA2 PO; SPIR1CAP INH; STIO1AER IN; SYMB16INH INH; ULTR50TA8 PO; VENTAER IN
[2018-06-18] MEDS ORDERED: [UNRECOGNIZED DRUG - CODE] SC (12:31)
[2018-06-18] MEDS ORDERED: LASI40TA9 PO (12:31)
[2018-06-18] MEDS ORDERED: DIGO0.12 PO (12:31)
[2018-06-18] MEDS ORDERED: LISI10TA4 PO (12:31)
[2018-06-18] MEDS ORDERED: diphenhydrAMINE INJ 50MG/ML VIAL (J1200) IV STA (13:37)
[2018-06-18] MEDS ORDERED: NS 1,000 ML IV ONE (13:45)
[2018-06-18] MEDS ORDERED: methylPREDNISolone INJ 125 MG/2 ML VIAL (J2930) IV ONE (13:45)
[2018-06-18] MEDS ORDERED: FAMOTIDINE IV BAG 20 MG in APPROPRIATE DILUENT 1 EA IV ONE (13:45)
[2018-06-18 13:48] LABS: BASO % 0.2 % (0.0-1.0); EOS % 0.1 % (0.0-3.0); LYMPH % 6.1 % (24.0-44.0); MEAN CORPUSCULAR HEMOGLOBIN 30.1 pg (27.0-33.0); MEAN CORPUSCULAR HGB CONC 32.4 g/dl (32.0-36.5); MEAN CORPUSCULAR VOLUME 92.9 fl (80.0-96.0); MONO # 1.8 10^3/uL (0.0-0.8); MONO % 11.1 % (0.0-5.0); NEUTROPHILS # 12.9 10^3/uL (1.8-7.7); NEUTROPHILS % 81.4 % (36.0-66.0); PLATELET COUNT, AUTOMATED 310 10^3/uL (150-450); RED BLOOD COUNT 3.66 10^6/uL (4.30-6.10); WHITE BLOOD COUNT 15.8 10^3/uL (4.0-10.0)
[2018-06-18 14:09] LABS: BILIRUBIN,DIRECT 0.3 MG/DL (0.0-0.2); BILIRUBIN,TOTAL 0.7 MG/DL (0.2-1.0); CREATININE FOR GFR 2.2 MG/DL (0.70-1.30); GLOMERULAR FILTRATION RATE 31.5 (>42); POTASSIUM SERUM 5.2 MEQ/L (3.5-5.1); TOTAL PROTEIN 8.1 GM/DL (6.4-8.2)
--- NOTE | 2018-06-18 15:27 | REP ---
CT ABDOMEN AND PELVIS WITHOUT IV CONTRAST: CT abdomen and pelvis performed without oral or IV contrast. Sagittal and coronal reconstruction images are performed. Comparison 07/26/2012. Visualized lung bases demonstrate mild interstitial fibrotic change. There are several tiny calcifications in the left lobe of the liver. Spleen, adrenals and pancreas are unremarkable. There are multiple bilateral renal cysts, some of which are hyperdense. These have increased in size since prior study. Tiny parenchymal calcification is seen in the lower pole of the right kidney. There appears to be a right renal calculus in the mid aspect 4 mm in diameter. There is no hydronephrosis bilaterally. There is mild atherosclerotic calcification of the abdominal aorta without aneurysm. There is no adenopathy. There is no free air. In the right lateral abdominal wall there is a large hematoma measuring approximately 15.3 x 6.4 x 11.4 cm. This impresses upon the adjacent intraperitoneal fat and displaces the bowel loops on the right side. There is no bowel obstruction. There is mild free fluid in the adjacent intraperitoneal space with mild free fluid in the pelvis. I see no bowel wall thickening. There is no evidence of appendicitis. Urinary bladder appears unremarkable. There is loss of height of L2 and L3 vertebral bodies with large Schmorl's nodes at the superior endplates, probably chronic findings. IMPRESSION: Large hematoma in the right abdominal wall measuring 15.3 x 6.4 x 11.4 cm, displacing the intraperitoneal fat and right-sided bowel loops. There is mild free fluid extending into the adjacent pelvis. Electronically Signed by George Robins MD 06/21/2018 11:54 A
[2018-06-18] MEDS ORDERED: MORPHINE 2 MG/ML 1ML SYRINGE (J2270) IV ONE ×2 (15:30→17:00)
--- NOTE | 2018-06-18 18:22 | CR ---
DATE OF CONSULTATION: 06/18/2018 REASON FOR CONSULTATION: Abdominal pain, rectus muscle hematoma/abdominal wall hematoma. HISTORY OF PRESENT ILLNESS The patient is a 73-year-old male with lung cancer metastatic to liver, actually had some clots he states in his liver at some point, although has had new onset atrial fibrillation (a-fib) where he has been on Lovenox equivalent shots on a daily basis and in the right lower quadrant where he has been giving himself shots he developed pain that was quite severe in nature approximately 3 days prior to admission and since that time it has been quite severe, although today it has gotten worse than it was yesterday. He has had no fevers or chills. Has had some mild nausea associated with that and is here now for additional evaluation/treatment. With his workup here in the emergency room, they found that he had a large abdominal wall hematoma. He did not have IV or by mouth (p.o.) contrast because of creatinine elevation. He was actually supposed to go and get radiofrequency ablation or cryotherapy to these liver lesions later on this week. PAST MEDICAL HISTORY: Significant for: 1. History of a-fib. 2. Hypertension. 3. Chronic obstructive pulmonary disease (COPD). 4. Benign prostatic hypertrophy (BPH). 5. Recurrent lung cancer. 6. Congestive heart failure with systolic dysfunction. 7. History of Methicillin-resistant Staphylococcus aureus (MRSA). 8. History of diverticulosis. 10. History of diverticulitis. 11. Status post colonic perforation due to diverticulitis with colostomy and colostomy reversal. 12. Wedge resection of a lung mass. 13. Vasectomy. MEDICATIONS: Include - albuterol - Symbicort - Lasix - lisinopril - Fragmin - digoxin PHYSICAL EXAMINATION: Reveals a 73-year-old male who looks stated age. HEENT is unremarkable. Neck: Supple without adenopathy. Lungs are clear anteriorly without wheezes or rhonchi. Although he has some diminished breath sounds bilaterally, right more than left. Abdomen is soft in the epigastric area left side of his abdomen, but he has a firm mass on the right side. He has a well outlined hematoma in the intramuscular layer of the abdominal wall appreciated on a CT scan and is very palpable on his physical exam. Extremities: Warm, well-perfused. IMPRESSION AND PLAN The patient has a abdominal wall hematoma most likely either had some bleeding associated with the injection itself given the injection site is the primary site where the hematoma is the largest or possibly just from anticoagulation alone had spontaneous rectus muscle hematoma develop. Although I feel that that is less likely the case. In any case reversing his anticoagulation or at least letting this wear off, abdominal binder is warranted. Given a he is not hypotensive, he has had this going on for about 3 days now, I do feel that it is reasonable to watch him and observe him in the hospital. If he has any hypotension, however, he may need some angiographic embolization and vascular surgery should be able to assist with that if needed. The current evacuation of the hematoma, drainage of it, especially with this patient anticoagulated at this time is not indicated. Once again I do feel that he will probably have some equilibration of his hematocrit and probably will drop to some extent over the next 12-24 hours as he gets hydrated, specifically this is noticeable on his creatinine elevation. He probably somewhat needs more fluids at this time with his BUN elevation and his hypernatremia. Otherwise I will be available for further consultation, but observation is warranted and I would keep him nothing by mouth (npo) tonight and as long as he stays stable overnight, then progressing his diet tomorrow is reasonable.
[2018-06-18 18:41] LABS: INR 1.36
[2018-06-18 18:42] LABS: PARTIAL THROMBOPLASTIN TIME 50.8 SECONDS (25.4-37.6)
[2018-06-18] MEDS ORDERED: ONDANSETRON 4MG/2ML VIAL (J2405) IV PRN (18:45)
[2018-06-18] MEDS ORDERED: SYMB16INH INH (18:53)
[2018-06-18] MEDS ORDERED: ALBUTEROL SULFATE 2.5 MG/0.5 ML INH NEB SOLN NEB PRN (19:00)
--- NOTE | 2018-06-18 19:48 | HPE ---
DATE OF ADMISSION: 06/18/2018 HISTORY OF PRESENT ILLNESS: Patient is a 73-year-old male who presents to the emergency room with abdominal pain. Patient says that the abdominal pain has been going on for about 3 days. Patient has dalteparin brand name Fragmin as an anticoagulation therapy for atrial fibrillation. Patient says that after he was started on Eliquis for atrial fibrillation he had blood clots and was started on Fragmin. Patient says he injects Fragmin once a day alternating sides. He says that 3 days ago he must of hit either an artery or something because he began to have swelling in the lower right abdomen. Since then he has not really been eating or drinking because of the pain. Patient says that the pain has limited his mobility and limits the amount he is eating and drinking. He says the last time he ate something was a pepperoni pizza from [employer] which afterwards he began coughing and became concerned because he thought the pepperoni was doing something to his stomach because he was having ripping pain in his stomach. Patient did have a history of diverticulitis in the past with hemicolectomy with ostomy and ostomy reversal. Patient denies having any fevers and says that she feels okay at this time but he is still having difficulties. Patient says that he is doing otherwise well. PAST MEDICAL HISTORY: Atrial fibrillation, lung cancer with wedge resection that has relapsed and has metastasized to the liver, hypertension, chronic obstructive pulmonary disease. SURGICAL HISTORY: Wedge resection, hemicolectomy with ostomy and reversal, MEDICATIONS: Albuterol, Symbicort, Lasix, lisinopril, Fragmin, Digoxin. ALLERGIES: Contrast media and penicillin. SOCIAL HISTORY: Patient was a former smoker. Patient does not drink alcohol or use an other illicit drugs. Patient lives at home. FAMILY HISTORY: Not pertinent. REVIEW OF SYSTEMS: GENERAL: Patient denies fever. HEENT: Patient denies headaches, sore throat, changes in vision. CARDIOVASCULAR: Patient denies chest pain. RESPIRATORY: Patient denies shortness of breath. GI: Patient does have abdominal pain but does not have nausea, vomiting, or diarrhea. : Patient denies difficulty or pain with urination. SKIN: Patient denies any rashes. Patient does have the bruising on the lower right abdomen. NEURO: Patient denies any numbness or tingling of the extremities. EXTREMITIES: Patient denies any swelling or pain in the extremities. LYMPHATIC: Patient denies any lumps or bumps in his abdomen or his groin. PHYSICAL EXAMINATION: VITALS: Temperature 99.3, pulse 91, respirations 18, blood pressure 157/78, pulse oximetry 100% on room air. GENERAL: Patient is an alert and oriented male who is laying in bed and does not appear to be in acute distress. HEENT: Normocephalic, atraumatic. Anicteric sclera. Moist mucous membranes. Posterior pharynx was not erythematous. NECK: Supple with no lymphadenopathy. CARDIOVASCULAR: Regular rate and rhythm with no murmurs. RESPIRATORY: Clear to auscultation bilaterally. ABDOMEN: There was no tenderness to palpation on the left side of the abdomen. There was tenderness to palpation over the right lower abdomen due to the hematoma. There is an approximately 6 cm x 6 cm hematoma with swelling and bruising present over the right lower abdomen. There is a small injection hole that is present but there did not look to be any overlying erythema of the skin. EXTREMITIES: No pretibial edema 2/4 radial posterior tibial and dorsalis pedis pulses. NEUROLOGICAL: Cranial nerves II through XII are grossly intact. Myotomes and dermatomes intact with the upper and lower extremities. SKIN: Bruising over the lower right abdomen, otherwise there were no rashes present. LABORATORY: CBC white blood cell 15.8, hemoglobin 11.0, hematocrit 34.0, platelets 310, CMP sodium 138, potassium 5.2, chloride 105, bicarbonate 22, BUN 42, creatinine 2.20, glucose 119, calcium 9.0, bilirubin 0.7, direct bilirubin 0.3, AST 48, ALT 69, alkaline phosphatase 108, total protein 8.1, albumin 4.0, lipase 249, PT 17, INR 1.36, APTT 50.8, a urine was negative with the exception of 1+ protein. IMAGING: A CT of the abdomen and pelvis without contrast performed on 06/18/2018 shows a large hematoma in the right abdominal wall measuring 15.3 x 6.4 x 11.4 cm displacing the intraperitoneal fat and right sided bowel loops. There is mild free fluid extending into the adjacent pelvis. ASSESSMENT AND PLAN: Patient is a 73-year-old male with an abdominal wall hematoma, most likely secondary to Fragmin injection site. 1. Abdominal hematoma. We will continue to monitor the patient. We have ordered every 6 CBC in order to monitor the patients hematocrit and hemoglobin. We will continue to monitor the patient and we will hold all anticoagulation at this time and we will also keep the patient nothing by mouth overnight just in case we need to bring the patient to the OR. Dr. Medel has been consulted and discussed the case with us after he examined the patient. We appreciate his help in treating the patient. We will watch the patient overnight with every 4 hours vital signs. 2. Acute kidney injury. This is most likely secondary to dehydration secondary to the patient not eating due to the pain. We have currently started the patient on D5 normal saline at a rate of 100 mL per hour. We will continue to monitor. 3. Atrial fibrillation. Patient is on Digoxin. We are currently holding anticoagulation. I did explain to the patient the risks of holding anticoagulation but with the bleeding we do want to make sure the patients hematocrit and hemoglobin are stable before restarting it. 4. COPD. We will continue the patient's current medication. 5. Congestive heart failure. Patient on furosemide and Lasix. We will hold these medications due to the patient's acute kidney injury. 6. CODE STATUS: Patient would like to be a full code. 7. DVT prophylaxis. We put the patient on ANUJ and sequentials. My faculty preceptor for this patient encounter was physically present during the encounter and was fully available. All aspects of the patient interview, examination, medical decision making process, and medical care plan development were reviewed and approved by the faculty preceptor. The faculty preceptor is aware and concurs with the plan as stated in the body of this note and will attest to such by his/her cosignature. I have both independently examined this patient as well as reviewed the H&P. I have discussed in detail with the resident the findings and plan of treatment as documented in the resident's note, Maru GREENWOOD
[2018-06-18 20:31] VITALS: BP 142/72
[2018-06-18] MEDS: oxyCODONE 5MG TAB PO PRN (20:40)
[2018-06-18] MEDS: D5W/0.45% SODIUM CHLORIDE 1,000 ML IV SCH (20:40)
[2018-06-18 23:59] VITALS: BP 118/60
[2018-06-19 00:09] LABS: BASO # 0.1 10^3/uL (0.0-0.2); BASO % 0.4 % (0.0-1.0); EOS % 0.3 % (0.0-3.0); HEMATOCRIT 27.1 % (42.0-52.0); LYMPH # 1.7 10^3/uL (1.5-4.5); LYMPH % 12.4 % (24.0-44.0); MEAN CORPUSCULAR HEMOGLOBIN 29.7 pg (27.0-33.0); MEAN CORPUSCULAR HGB CONC 32.1 g/dl (32.0-36.5); MEAN CORPUSCULAR VOLUME 92.5 fl (80.0-96.0); MONO # 1.8 10^3/uL (0.0-0.8); NEUTROPHILS # 10.2 10^3/uL (1.8-7.7); NEUTROPHILS % 72.5 % (36.0-66.0); PLATELET COUNT, AUTOMATED 280 10^3/uL (150-450); RED BLOOD COUNT 2.93 10^6/uL (4.30-6.10)
[2018-06-19 00:15] LABS: HEMOGLOBIN 8.7 g/dl (13.5-17.5)
[2018-06-19 04:00] VITALS: BP 112/54
[2018-06-19 05:00] LABS: BASO # 0.1 10^3/uL (0.0-0.2); BASO % 0.4 % (0.0-1.0); EOS # 0.1 10^3/uL (0.0-0.50); EOS % 0.3 % (0.0-3.0); HEMATOCRIT 24.2 % (42.0-52.0); HEMOGLOBIN 7.9 g/dl (13.5-17.5); LYMPH # 1.3 10^3/uL (1.5-4.5); LYMPH % 8.3 % (24.0-44.0); MEAN CORPUSCULAR HEMOGLOBIN 29.8 pg (27.0-33.0); MEAN CORPUSCULAR HGB CONC 32.6 g/dl (32.0-36.5); MEAN CORPUSCULAR VOLUME 91.3 fl (80.0-96.0); NEUTROPHILS # 12.2 10^3/uL (1.8-7.7); PLATELET COUNT, AUTOMATED 290 10^3/uL (150-450); RED BLOOD COUNT 2.65 10^6/uL (4.30-6.10); WHITE BLOOD COUNT 15.9 10^3/uL (4.0-10.0)
[2018-06-19 05:15] LABS: INR 1.26
[2018-06-19 05:23] LABS: MONO # 2.1 10^3/uL (0.0-0.8)
[2018-06-19 05:43] LABS: CALCIUM LEVEL 8.2 MG/DL (8.8-10.2); CREATININE FOR GFR 2.7 MG/DL (0.70-1.30); GLOMERULAR FILTRATION RATE 24.9 (>42); POTASSIUM SERUM 5.5 MEQ/L (3.5-5.1)
[2018-06-19] MEDS: D5W/0.45% SODIUM CHLORIDE 1,000 ML IV SCH ×2 (06:31→16:52)
[2018-06-19] MEDS: MORPHINE 4 MG/ML 1ML VIAL/SYRINGE (J2270) IV PRN ×2 (06:32→10:02)
[2018-06-19] MEDS: SYMBICORT 160/4.5MCG INHALER 6GM INH SCH ×2 (07:09→21:36)
[2018-06-19] MEDS: TIOTROPIUM INHALER/CAPSULE (SPIRIVA) INH SCH (07:09)
[2018-06-19 08:00] VITALS: BP 115/58
[2018-06-19] MEDS: DIGOXIN 0.125 MG TAB PO SCH (10:04)
--- NOTE | 2018-06-19 11:12 | REP ---
CT of the abdomen and pelvis without IV and oral contrast: Comparison is 06/18/2018. There is a large right rectus sheath mass compatible with hematoma, similar to the comparison study today measuring 7.8 cm transversely by 5.6 cm AP by 14.0 cm craniocaudad. In addition, there is now a right psoas mass, not present on the comparison study, measuring 4.6 cm transversely by 5.5 cm AP by 15 cm craniocaudad. The rapid appearance of this masses compatible with hematoma. There is a small volume of free intraperitoneal fluid along the inferomedial border of the liver as an interval change. The visualized lung grant are unremarkable except for minor atelectasis. The unenhanced hepatic parenchyma is unremarkable. The gallbladder, pancreas and unenhanced spleen are unremarkable. The adrenals are unremarkable. There are bilateral renal cortical cysts, unchanged. There is no hydronephrosis. The unenhanced kidneys are otherwise unremarkable. The abdominal aorta is unremarkable. There is no retro peritoneal periaortic hematoma. The bowel and mesentery are otherwise unremarkable. Pelvis: There is a collection of fluid posterior to the bladder, possibly a hematoma, unchanged. This measures 6.1 by 2.4 by 4.3 cm. The bladder is unremarkable. Impression: Right rectus sheath hematoma as described, similar to the prior study. Right so as hematoma, not present previously. Hematoma in the pelvis posterior to the bladder, unchanged. Small volume of intraperitoneal hemorrhage on the right. Bilateral renal cortical cysts. There are compression deformities of the L to L3 vertebral bodies, unchanged. Electronically Signed by George Perdue MD 06/19/2018 11:04 A
[2018-06-19 12:00] VITALS: BP 127/60
[2018-06-19 12:08] LABS: BASO # 0.1 10^3/uL (0.0-0.2); BASO % 0.3 % (0.0-1.0); EOS # 0.1 10^3/uL (0.0-0.50); EOS % 0.4 % (0.0-3.0); HEMATOCRIT 21.8 % (42.0-52.0); HEMOGLOBIN 7.1 g/dl (13.5-17.5); LYMPH # 1.4 10^3/uL (1.5-4.5); LYMPH % 9.5 % (24.0-44.0); MEAN CORPUSCULAR HEMOGLOBIN 30.7 pg (27.0-33.0); MEAN CORPUSCULAR HGB CONC 32.6 g/dl (32.0-36.5); MEAN CORPUSCULAR VOLUME 94.4 fl (80.0-96.0); NEUTROPHILS # 11.4 10^3/uL (1.8-7.7); NEUTROPHILS % 75.1 % (36.0-66.0); PLATELET COUNT, AUTOMATED 252 10^3/uL (150-450); RED BLOOD COUNT 2.31 10^6/uL (4.30-6.10); WHITE BLOOD COUNT 15.2 10^3/uL (4.0-10.0)
[2018-06-19] MEDS: oxyCODONE 5MG TAB PO PRN ×2 (12:49→19:51)
[2018-06-19 13:19] LABS: MONO % 13.4 % (0.0-5.0)
--- NOTE | 2018-06-19 14:28 | REP ---
Bilateral renal ultrasound: The study is correlated with the CT of the abdomen pelvis performed earlier this same date. Right kidney measures 10.6 x 5.0 by 4.0 cm. Left kidney measures 10.0 x 4.8 x 4.6 cm. The kidneys are normal size. The renal cortices are mildly hyperechoic bilaterally compatible with medical renal disease. There is no hydronephrosis. No renal calculi. No solid renal masses. There are multiple bilateral simple renal cysts, largest on the left measuring up to 1.6 and the largest on the right measuring up to 3.3 cm. The right kidney is displaced medially by a large right abdominal wall hematoma is. Upon review of the CT scan performed earlier today. The the right rectus sheath hematoma and right psoas muscle hematoma are again identified. However, in addition to these to large hematomas there is a third large hematoma along the right lateral chest wall interposed between those two hematomas measuring 5.5 cm transversely by 4.8 cm AP by 11 cm craniocaudad. Impression: Multiple bilateral renal simple cysts. Mild bilateral renal cortical echogenicity compatible with medical renal disease. No hydronephrosis. A third large hematoma is identified along the right lateral chest wall as discussed in addition to the psoas an rectus sheath hematomas identified on the CT. Electronically Signed by George Perdue MD 06/19/2018 02:20 P
--- NOTE | 2018-06-19 14:30 | REP ---
Bilateral lower extremity deep vein duplex ultrasound: The deep veins demonstrate normal compression, normal Doppler color flow and normal Doppler waveforms with respiration and augmentation from the popliteal veins to the common femoral veins bilaterally . Impression: There is no deep vein thrombus in the right or left lower extremities. Electronically Signed by George Perdue MD 06/19/2018 02:22 P
--- NOTE | 2018-06-19 15:59 | IPN ---
DATE: 06/19/2018 This is a followup for an abdominal wall/rectus muscle hematoma. The patient has had a significant drop in his hematocrit overnight and now is getting a couple units of blood. We do not see active extravasation on his CT scan, but he has a very large hematoma. Fortunately he has been off his Lovenox equivalent for over 24 hours now. He has had no fevers or chills. States he has some pressure along his bladder, and they are putting in a Mccord, but otherwise seems to be stable. His urine output has been minimal, and I anticipate this is mostly because of hemorrhage/hematoma. On his physical exam, one can feel the outlines of the tense hematoma along the right rectus muscle, extending down into the groin on the right-hand side, but his ecchymosis is actually starting to spread along his abdominal wall on the right lateral abdomen. He does not have any tenderness along this area, and the rest of his abdomen is benign except for this hematoma area. IMPRESSION AND PLAN: The patient has a hematoma. Anticipate as the anticoagulation wears off, he should start to resolve his hematoma as well. Right now, trying to evacuate the hematoma with a drain alone would be not successful given that it is usually coagulated blood, fibrin, and not amenable to drainage; however, as it starts to liquefy, possibly in 5-7 days, it may be reasonable to put a drain in there to help evacuate this hematoma if he continues to be significantly symptomatic. In any case, at this point, further intervention is not required from a surgical intervention standpoint. He has not been hypotensive. He has not shown active bleeding like a typical individual with active bleeding, hypotension, etc. My recommendation at this time is to follow him and continue with supportive care.
[2018-06-19 16:00] VITALS: BP 105/68
--- NOTE | 2018-06-19 16:13 | IPNPDOC ---
Text Note Date of Service The patient was seen on 06/19/18. NOTE Subjective: Patient is a 73-year-old male who presented to the hospital with abdominal pain. Patient was found to have a abdominal wall hematoma on the right side. Patient says the pain is still quite severe and is difficult to move. Patient says he does not really have much of an appetite because of this. Patient has experienced some difficulty with urination. Patient says it feels like he has to go however, he is having difficulty urinating. Patient says he is quite tired and has not really slept well for last few days prior to coming in the hospital. Patient says that he has been diagnosed with blood clots in his liver. Review of systems General: Patient denies fevers HEENT: Patient denies headaches Cardiovascular: Patient denies chest pain Respiratory: Patient denies shortness of breath, cough GI: Abdominal pain secondary to hematoma. Patient denies nausea, vomiting, diarrhea : Patient complains of feeling like he needs to urinate in the not being able to. Neurological: Patient denies numbness or tingling in extremities Extremities: Patient denies swelling or pain in extremities Objective: Vitals: (see below) General: No acute distress, laying comfortably in bed. HEENT: Normocephalic, atraumatic, moist mucous membranes. Neck: No JVD or lymphadenopathy Cardiac: RRR, No murmurs Pulm: Clear to auscultation b/l. No wheezing, rhonchi Abd: Large, hard, tender mass in the right lower quadrant. There is no tenderness in the left side of the abdomen. There is slight bruising overlying the mass in the right lower quadrant. Ext: No edema or cyanosis. Radial, posterior tibial, and dorsalis pedis pulses equal bilaterally. Labs (see below) Images: Ultrasound of the bilateral lower extremities performed on 06/19/2017 shows no deep vein thrombosis in right or left lower extremities. Renal ultrasound performed on 06/19/2017 showed multiple bilateral renal simple cysts. Mild bilateral renal cortical echogenicity compatible with medical renal disease. No hydronephrosis. A third large hematoma is identified along the right lateral chest wall as discussed in addition to this so as and rectus sheath hematomas identified on CT. A CT of the abdomen and pelvis performed on 06/19/2017 showed right rectus sheath hematoma similar to the prior study, right so as hematoma not present previous. A hematoma in the pelvis posterior to the bladder, unchanged, small volume of intraperitoneal hemorrhage on the right, there is also a third interposed hematoma that measures 5.5 x 4.9 x 11 cm along the right lateral chest wall interposed between the rectus hematoma and so as hematoma. Assessment/Plan 1. Abdominal wall hematoma. The rectus and so as hematomas appears stable from prior CT studies done yesterday. Patient's hemoglobin and hematocrit have continued to decline. Patient has received 2 units of packed red blood cells. We will continue to monitor the patient's CBC every [address] Medel is continuing to follow the patient. We appreciate Dr. Medel's help in treating the patient. We have also consulted Dr. Wilcox of vascular surgery who will see the patient. 2. Acute kidney injury. This is most likely secondary to dehydration. Patient's creatinine increased from 2.20-2.70 overnight. We are continue the patient's fluids. Dr. Barber of nephrology has been consulted. We appreciate Dr. Barber's help treating the patient. Patient is complaining of some difficulty with urination. A Mccord catheter has been placed because the hematoma is pushing on the patient's bladder. We'll continue to monitor. 3. Liver thrombosis. According to the patient, he has been diagnosed with blood clots in his liver. This was a reason for him being put on the dalteparin. We have consulted Dr. Wilcox of vascular surgery. A abdominal ultrasound with Doppler flow of the liver will be performed. We appreciate Dr. Wilcox's help in treating the patient. We'll continue to monitor. 4. Atrial fibrillation. Patient is on digoxin. Patient's desire michael level was normal today. We'll continue the medication at the current dose. We are currently holding patient's anticoagulation due to the patient's multiple hematomas. We will continue to monitor. 5. COPD. We'll continue patient's current medications. 6. Congestive heart failure. Patient is on furosemide we will continue to hold these medications due to the patient's acute kidney injury. DVT prophy: Thromboembolic deterrent stockings and sequential compression devices. Dispo: Pending clinical improvement VS,Thanh, I+O VS, Ederbone, I+O Laboratory Tests 06/18/18 23:52 Red Blood Count 2.93 L, Mean Corpuscular Volume 92.5, Mean Corpuscular Hemoglobin 29.7, Mean Corpuscular Hemoglobin Concent 32.1, Red Cell Distribution Width 14.6 H, Neutrophils (%) (Auto) 72.5 H, Lymphocytes (%) (Auto) 12.4 L, Monocytes (%) (Auto) 13.0 H, Eosinophils (%) (Auto) 0.3, Basophils (%) (Auto) 0.4, Neutrophils # (Auto) 10.2 H, Lymphocytes # (Auto) 1.7, Monocytes # (Auto) 1.8 H, Eosinophils # (Auto) 0.0, Basophils # (Auto) 0.1 06/19/18 04:35 Red Blood Count 2.65 L, Mean Corpuscular Volume 91.3, Mean Corpuscular Hemoglobin 29.8, Mean Corpuscular Hemoglobin Concent 32.6, Red Cell Distribution Width 14.6 H, Neutrophils (%) (Auto) 77.0 H, Lymphocytes (%) (Auto) 8.3 L, Monocytes (%) (Auto) 13.0 H, Eosinophils (%) (Auto) 0.3, Basophils (%) (Auto) 0.4, Neutrophils # (Auto) 12.2 H, Lymphocytes # (Auto) 1.3 L, Monocytes # (Auto) 2.1 H, Eosinophils # (Auto) 0.1, Basophils # (Auto) 0.1, Calcium Level 8.2 L 06/19/18 11:53 Red Blood Count 2.31 L, Mean Corpuscular Volume 94.4, Mean Corpuscular Hemoglobin 30.7, Mean Corpuscular Hemoglobin Concent 32.6, Red Cell Distribution Width 14.7 H, Neutrophils (%) (Auto) 75.1 H, Lymphocytes (%) (Auto) 9.5 L, Monocytes (%) (Auto) 13.4 H, Eosinophils (%) (Auto) 0.4, Basophils (%) (Auto) 0.3, Neutrophils # (Auto) 11.4 H, Lymphocytes # (Auto) 1.4 L, Monocytes # (Auto) 2.0 H, Eosinophils # (Auto) 0.1, Basophils # (Auto) 0.1 Vital Signs Date Time Temp Pulse Resp B/P (MAP) Pulse Ox O2 Delivery O2 Flow Rate FiO2 3/9/19 12:49 20 06/19/18 12:00 98.9 93 127/60 (82) 94 06/18/18 19:50 Room Air I&O- Last 24 Hours up to 6 AM 06/19/18 06:00 Intake Total 1000 ml Output Total 100 ml Balance 900 ml GME ATTESTATION GME ATTESTATION My faculty preceptor for this patient encounter was physically present during the encounter and was fully available. All aspects of the patient interview, examination, medical decision making process, and medical care plan development were reviewed and approved by the faculty preceptor. The faculty preceptor is aware and concurs with the plan as stated in the body of this note and will attest to such by his/her cosignature. ATTENDING NOTE I have both independently examined this patient as well as reviewed the note I have discussed in detail the findings and plan of treatment as documented in the note. I will continue to follow the patient and offer further guidance to the patients care as necessary during this hospital stay. SHAZIA Rausch MD, DO Jun 19, 2018 16:13 WOOD HARTMAN MD Jun 20, 2018 07:13
[2018-06-19 16:34] LABS: POTASSIUM RANDOM URINE 60.9 MEQ/L; TOTAL PROTEIN,RANDOM URINE 32.9 MG/DL (0.0-12.0)
[2018-06-19] MEDS: TAMSULOSIN 0.4 MG CAP PO SCH (16:52)
[2018-06-19 19:25] LABS: BASO # 0.1 10^3/uL (0.0-0.2); BASO % 0.4 % (0.0-1.0); EOS # 0.2 10^3/uL (0.0-0.50); EOS % 1.1 % (0.0-3.0); HEMATOCRIT 29.5 % (42.0-52.0); HEMOGLOBIN 9.3 g/dl (13.5-17.5); LYMPH # 1.2 10^3/uL (1.5-4.5); LYMPH % 9.2 % (24.0-44.0); MEAN CORPUSCULAR HEMOGLOBIN 27.8 pg (27.0-33.0); MEAN CORPUSCULAR HGB CONC 31.5 g/dl (32.0-36.5); MEAN CORPUSCULAR VOLUME 88.3 fl (80.0-96.0); MONO # 1.8 10^3/uL (0.0-0.8); MONO % 13.3 % (0.0-5.0); NEUTROPHILS % 74.9 % (36.0-66.0); PLATELET COUNT, AUTOMATED 210 10^3/uL (150-450); RED BLOOD COUNT 3.34 10^6/uL (4.30-6.10); WHITE BLOOD COUNT 13.3 10^3/uL (4.0-10.0)
[2018-06-19 19:48] VITALS: BP 104/58
[2018-06-20] VITALS (7 sets, daily range): BP systolic 102–127; BP diastolic 48–65
[2018-06-20] MEDS: oxyCODONE 5MG TAB PO PRN ×4 (00:06→20:28)
[2018-06-20] MEDS: D5W/0.45% SODIUM CHLORIDE 1,000 ML IV SCH (00:07)
[2018-06-20 00:33] LABS: HEMATOCRIT 25.8 % (42.0-52.0); HEMOGLOBIN 8.3 g/dl (13.5-17.5); MEAN CORPUSCULAR HEMOGLOBIN 27.9 pg (27.0-33.0); MEAN CORPUSCULAR HGB CONC 32.2 g/dl (32.0-36.5); MEAN CORPUSCULAR VOLUME 86.9 fl (80.0-96.0); PLATELET COUNT, AUTOMATED 207 10^3/uL (150-450); RED BLOOD COUNT 2.97 10^6/uL (4.30-6.10); WHITE BLOOD COUNT 13.5 10^3/uL (4.0-10.0)
[2018-06-20 05:28] LABS: HEMATOCRIT 24.6 % (42.0-52.0); HEMOGLOBIN 7.9 g/dl (13.5-17.5); MEAN CORPUSCULAR HEMOGLOBIN 27.9 pg (27.0-33.0); MEAN CORPUSCULAR HGB CONC 32.1 g/dl (32.0-36.5); MEAN CORPUSCULAR VOLUME 86.9 fl (80.0-96.0); PLATELET COUNT, AUTOMATED 209 10^3/uL (150-450); RED BLOOD COUNT 2.83 10^6/uL (4.30-6.10); WHITE BLOOD COUNT 12.2 10^3/uL (4.0-10.0)
[2018-06-20 05:48] LABS: INR 1.24; PROTHROMBIN TIME 15.8 SECONDS (12.1-14.4)
[2018-06-20 05:49] LABS: PARTIAL THROMBOPLASTIN TIME 36.7 SECONDS (25.4-37.6)
[2018-06-20 06:04] LABS: BILIRUBIN,TOTAL 1.4 MG/DL (0.2-1.0); CALCIUM LEVEL 7.9 MG/DL (8.8-10.2); CREATININE FOR GFR 2.89 MG/DL (0.70-1.30); POTASSIUM SERUM 4.6 MEQ/L (3.5-5.1); TOTAL PROTEIN 6.3 GM/DL (6.4-8.2)
[2018-06-20] MEDS: TIOTROPIUM INHALER/CAPSULE (SPIRIVA) INH SCH (07:06)
[2018-06-20] MEDS: SYMBICORT 160/4.5MCG INHALER 6GM INH SCH ×2 (07:06→20:35)
--- NOTE | 2018-06-20 09:51 | CR.PDOC ---
Text Note Date of Service The patient was seen on 06/20/18 at 9:30 AM. NOTE Patient is a 73-year-old male with large right rectus sheath hematoma who was previously self injecting with Lovenox for atrial fibrillation and to also has history of thrombus in the liver. Patient was unsure whether the thrombus was arterial venous or portal. Patient had an ultrasound of both lower extremity is which showed no evidence of deep venous thrombosis. Patient has exquisite pain in his right rectus abdominis muscle distribution. Patient was currently transfusing red blood cells. Patient was on his way to ultrasound to be evaluated for liver thrombosis. At this point no vascular surgical intervention is required. Will follow up later today after the patient undergoes his liver ultrasound. Full consult to follow. Patient will be followed during his hospitalization. VITAL SIGNS VITAL SIGNS Vital Signs Date Time Temp Pulse Resp B/P (MAP) Pulse Ox O2 Delivery O2 Flow Rate FiO2 06/20/18 08:00 100.0 88 18 105/58 (74) 92 06/20/18 07:35 20 06/20/18 04:00 99.4 99 18 96 06/20/18 04:00 102/48 (66) 06/20/18 00:36 16 06/20/18 00:06 20 06/20/18 00:05 104/50 (68) 06/19/18 23:59 99.4 100 20 91 06/19/18 20:00 97.6 93 18 95 06/19/18 19:51 18 06/19/18 19:48 104/58 (73) 06/19/18 16:00 98.0 86 20 105/68 (80) 95 06/19/18 12:49 20 06/19/18 12:00 98.9 93 20 127/60 (82) 94 06/19/18 10:12 20 06/19/18 10:04 90 06/19/18 10:02 20 Intake & Output 06/20/18 06:00 Intake Total 2770 ml Output Total 900 ml Balance 1870 ml Laboratory Tests 06/19/18 11:53: White Blood Count 15.2H, Red Blood Count 2.31L, Hemoglobin 7.1L, Hematocrit 21.8L, Mean Corpuscular Volume 94.4, Mean Corpuscular Hemoglobin 30.7, Mean Corpuscular Hemoglobin Concent 32.6, Red Cell Distribution Width 14.7H, Platelet Count 252, Neutrophils (%) (Auto) 75.1H, Lymphocytes (%) (Auto) 9.5L, Monocytes (%) (Auto) 13.4H, Eosinophils (%) (Auto) 0.4, Basophils (%) (Auto) 0.3, Neutrophils # (Auto) 11.4H, Lymphocytes # (Auto) 1.4L, Monocytes # (Auto) 2.0H, Eosinophils # (Auto) 0.1, Basophils # (Auto) 0.1, Immature Granulocyte % (Auto) 1.3, Nucleated Red Blood Cells % (auto) 0.0 06/19/18 15:20: Urine Random Osmolality 415L, Urine Random Creatinine 211.0, Urine Random Total Protein 32.9H, Urine Random Sodium 31, Urine Random Potassium 60.9, Urine Random Chloride 28 06/19/18 18:56: White Blood Count 13.3H, Red Blood Count 3.34L, Hemoglobin 9.3#L, Hematocrit 29.5L, Mean Corpuscular Volume 88.3, Mean Corpuscular Hemoglobin 27.8, Mean Corpuscular Hemoglobin Concent 31.5L, Red Cell Distribution Width 16.8H, Platelet Count 210, Neutrophils (%) (Auto) 74.9H, Lymphocytes (%) (Auto) 9.2L, Monocytes (%) (Auto) 13.3H, Eosinophils (%) (Auto) 1.1, Basophils (%) (Auto) 0.4, Neutrophils # (Auto) 10.0H, Lymphocytes # (Auto) 1.2L, Monocytes # (Auto) 1.8H, Eosinophils # (Auto) 0.2, Basophils # (Auto) 0.1, Immature Granulocyte % (Auto) 1.1, Nucleated Red Blood Cells % (auto) 0.0 06/20/18 00:10: White Blood Count 13.5H, Red Blood Count 2.97L, Hemoglobin 8.3L, Hematocrit 25.8L, Mean Corpuscular Volume 86.9, Mean Corpuscular Hemoglobin 27.9, Mean Corpuscular Hemoglobin Concent 32.2, Red Cell Distribution Width 17.1H, Platelet Count 207, Nucleated Red Blood Cells % (auto) 0.0 06/20/18 05:02: White Blood Count 12.2H, Red Blood Count 2.83L, Hemoglobin 7.9L, Hematocrit 24.6L, Mean Corpuscular Volume 86.9, Mean Corpuscular Hemoglobin 27.9, Mean Corpuscular Hemoglobin Concent 32.1, Red Cell Distribution Width 16.9H, Platelet Count 209, Nucleated Red Blood Cells % (auto) 0.0, Prothrombin Time 15.8H, Prothromb Time International Ratio 1.24, Activated Partial Thromboplast Time 36.7, Blood Urea Nitrogen 64H, Creatinine 2.89H, Sodium Level 134L, Potassium Level 4.6, Chloride Level 105, Carbon Dioxide Level 23, Calcium Level 7.9L, Aspartate Amino Transf (AST/SGOT) 45H, Alanine Aminotransferase (ALT/SGPT) 51, Alkaline Phosphatase 68, Total Bilirubin 1.4#H, Total Protein 6.3#L, Albumin 3.0#L, Anion Gap 6L, Glomerular Filtration Rate 23.0L, Fasting Glucose 100, Albumin/Globulin Ratio 0.91L Current Medications Medications (Trade) Dose Ordered Sig/Ida Route PRN Reason Start Time Stop Time Status Last Admin Dose Admin Budesonide/ Formoterol Fumarate (Symbicort 160/ 4.5mcg) 2 puff BID INH 06/18/18 21:00 06/20/18 07:06 2 PUFF Digoxin (Lanoxin) 0.125 mg DAILY PO 06/19/18 09:00 06/19/18 10:04 0.125 MG Morphine Sulfate (Morphine Sulfate Inj) 2 mg Q2HP PRN IV SEVERE PAIN (PS 8-10) 06/18/18 18:45 06/19/18 10:02 2 MG Ondansetron HCl (ZOFRAN INJection) 4 mg Q6HP PRN IV NAUSEA OR VOMITING 06/18/18 18:45 06/19/18 12:48 4 MG Oxycodone HCl (Roxicodone, Oxyir) 5 mg Q4HP PRN PO MODERATE PAIN 06/18/18 18:45 06/20/18 07:35 5 MG Tamsulosin HCl (Flomax) 0.4 mg DAILY PO 06/19/18 09:00 06/19/18 16:52 0.4 MG Tiotropium Brooks (Spiriva Handihaler) 1 inhalation DAILY@08 INH 06/19/18 08:00 06/20/18 07:06 1 INHALATION Laboratory Tests 06/18/18 12:37 Red Blood Count 3.66 L, Mean Corpuscular Volume 92.9, Mean Corpuscular Hemoglobin 30.1, Mean Corpuscular Hemoglobin Concent 32.4, Red Cell Distribution Width 14.5, Neutrophils (%) (Auto) 81.4 H, Lymphocytes (%) (Auto) 6.1 L, Monocytes (%) (Auto) 11.1 H, Eosinophils (%) (Auto) 0.1, Basophils (%) (Auto) 0.2, Neutrophils # (Auto) 12.9 H, Lymphocytes # (Auto) 1.0 L, Monocytes # (Auto) 1.8 H, Eosinophils # (Auto) 0.0, Basophils # (Auto) 0.0 06/18/18 23:52 Red Blood Count 2.93 L, Mean Corpuscular Volume 92.5, Mean Corpuscular Hemoglobin 29.7, Mean Corpuscular Hemoglobin Concent 32.1, Red Cell Distribution Width 14.6 H, Neutrophils (%) (Auto) 72.5 H, Lymphocytes (%) (Auto) 12.4 L, Monocytes (%) (Auto) 13.0 H, Eosinophils (%) (Auto) 0.3, Basophils (%) (Auto) 0.4, Neutrophils # (Auto) 10.2 H, Lymphocytes # (Auto) 1.7, Monocytes # (Auto) 1.8 H, Eosinophils # (Auto) 0.0, Basophils # (Auto) 0.1 06/19/18 04:35 Red Blood Count 2.65 L, Mean Corpuscular Volume 91.3, Mean Corpuscular Hemoglobin 29.8, Mean Corpuscular Hemoglobin Concent 32.6, Red Cell Distribution Width 14.6 H, Neutrophils (%) (Auto) 77.0 H, Lymphocytes (%) (Auto) 8.3 L, Monocytes (%) (Auto) 13.0 H, Eosinophils (%) (Auto) 0.3, Basophils (%) (Auto) 0.4, Neutrophils # (Auto) 12.2 H, Lymphocytes # (Auto) 1.3 L, Monocytes # (Auto) 2.1 H, Eosinophils # (Auto) 0.1, Basophils # (Auto) 0.1, Calcium Level 8.2 L 06/19/18 11:53 Red Blood Count 2.31 L, Mean Corpuscular Volume 94.4, Mean Corpuscular Hemoglobin 30.7, Mean Corpuscular Hemoglobin Concent 32.6, Red Cell Distribution Width 14.7 H, Neutrophils (%) (Auto) 75.1 H, Lymphocytes (%) (Auto) 9.5 L, Monocytes (%) (Auto) 13.4 H, Eosinophils (%) (Auto) 0.4, Basophils (%) (Auto) 0.3, Neutrophils # (Auto) 11.4 H, Lymphocytes # (Auto) 1.4 L, Monocytes # (Auto) 2.0 H, Eosinophils # (Auto) 0.1, Basophils # (Auto) 0.1 06/19/18 18:56 Red Blood Count 3.34 L, Mean Corpuscular Volume 88.3, Mean Corpuscular Hemoglobin 27.8, Mean Corpuscular Hemoglobin Concent 31.5 L, Red Cell Distribution Width 16.8 H, Neutrophils (%) (Auto) 74.9 H, Lymphocytes (%) (Auto) 9.2 L, Monocytes (%) (Auto) 13.3 H, Eosinophils (%) (Auto) 1.1, Basophils (%) (Auto) 0.4, Neutrophils # (Auto) 10.0 H, Lymphocytes # (Auto) 1.2 L, Monocytes # (Auto) 1.8 H, Eosinophils # (Auto) 0.2, Basophils # (Auto) 0.1 06/20/18 00:10 Red Blood Count 2.97 L, Mean Corpuscular Volume 86.9, Mean Corpuscular Hemoglobin 27.9, Mean Corpuscular Hemoglobin Concent 32.2, Red Cell Distribution Width 17.1 H 06/20/18 05:02 Red Blood Count 2.83 L, Mean Corpuscular Volume 86.9, Mean Corpuscular Hemoglob in 27.9, Mean Corpuscular Hemoglobin Concent 32.1, Red Cell Distribution Width 16.9 H, Calcium Level 7.9 L, Aspartate Amino Transf (AST/SGOT) 45 H, Alanine Aminotransferase (ALT/SGPT) 51, Alkaline Phosphatase 68, Total Bilirubin 1.4 #H, Total Protein 6.3 #L, Albumin 3.0 #L Jovanny Wilcox MD Jun 20, 2018 09:51
[2018-06-20] MEDS ORDERED: SLF 3 ML SYR IV PRN (10:00)
[2018-06-20] MEDS: SLF 3 ML SYR IV SCH ×2 (11:16→20:28)
[2018-06-20] MEDS: DIGOXIN 0.125 MG TAB PO SCH (11:16)
[2018-06-20] MEDS: TAMSULOSIN 0.4 MG CAP PO SCH (11:16)
--- NOTE | 2018-06-20 12:06 | REP ---
Portal vein Doppler assessment: With color Doppler assessment there is a small nonocclusive thrombus in the left portal vein. The portal vein Doppler waveforms are normal. The hepatic vein waveform is portal lysed. This is nonspecific but may represent stiffness of the hepatic vein, possibly secondary to hepatitis or cirrhosis. Impression: Small intraluminal thrombus, nonocclusive, in the right portal vein. Abdominal right upper quadrant ultrasound: There is a negative Gibbons's sign. There is no cholelithiasis, gallbladder wall thickening or pericholecystic fluid. There is no intrahepatic or extrahepatic biliary duct dilatation. The common duct measures 5.5 mm in diameter. Within the liver. There are too small hypoechoic nodules in the left lobe, one measuring 1.8 the centimeters and the other measuring 1.2 cm. MRI follow-up of these nodules might be considered. The pancreas is obscured by bowel gas. The spleen is normal size measuring 10.7 x 3.2 by 10.3 cm for a volume of 352 milliliters. The kidneys have been previously evaluated on renal ultrasound dated 06/19/2018. The abdominal aorta is obscured by bowel gas. There is a trace of right pleural fluid. The patient has a known hematomas in the abdomen on the right as described during an abdominopelvic CT yesterday. Impression: There are two hepatic left lobe nodules as described. Consider follow-up MRI. Pancreas is obscured by bowel gas. Otherwise, negative abdominal right upper quadrant ultrasound. Electronically Signed by George Perdue MD 06/20/2018 11:57 A
--- NOTE | 2018-06-20 12:31 | IPN ---
DATE OF SERVICE: 06/20/2018 Patient developed a rectus muscle hematoma. Has been doing well from pain standpoint. His blood pressures have been relatively stable at this point, however, he has had some low urine output. I think from the amount of bleeding that he had, actually it was a rectus muscle hematoma. The patient had a CT scan yesterday because of the persistent of decreasing hematocrit and pain. Report says persistent right rectus muscle hematoma and essentially really does not reveal anything new on that study from the rectus muscle hematoma issues. In any case, at this point he has been stable overnight and pain seems to be well under control. When he is not moving, he states he does not have a significant amount of pain. He on his physical exam still is soft on the left side of his abdomen in the epigastric area suggesting no leak into the abdomen. IMPRESSION AND PLAN: The patient has evidence of right-sided rectus muscle hematoma. Unfortunately he had a little bit of a temperature spike overnight of 100. Fortunately his white count is coming down gradually over time. it is down to 12.2. He does have a very high risk for developing an infection within this site given his punctures that he has had to the site which could introduce some bacteria. But at this point, no evidence of abscess formation. I would continue with his current treatment for now and see how his reversal of his anticoagulation is working for him over the next 24 hours. Increasing his diet as tolerated is reasonable and no further intervention is necessary from a surgical recommendation at this time.
[2018-06-20] MEDS: BISACODYL 5 MG TAB PO PRN (12:51)
[2018-06-20 14:49] LABS: HEMATOCRIT 28.9 % (42.0-52.0); HEMOGLOBIN 9.5 g/dl (13.5-17.5); MEAN CORPUSCULAR HEMOGLOBIN 28.9 pg (27.0-33.0); MEAN CORPUSCULAR HGB CONC 32.9 g/dl (32.0-36.5); MEAN CORPUSCULAR VOLUME 87.8 fl (80.0-96.0); PLATELET COUNT, AUTOMATED 168 10^3/uL (150-450); RED BLOOD COUNT 3.29 10^6/uL (4.30-6.10); WHITE BLOOD COUNT 10.2 10^3/uL (4.0-10.0)
[2018-06-20] MEDS: SENOKOT S TAB PO SCH ×2 (18:09→20:28)
[2018-06-20] MEDS: MORPHINE 4 MG/ML 1ML VIAL/SYRINGE (J2270) IV PRN (18:10)
[2018-06-20 18:59] LABS: HEMOGLOBIN 9.6 g/dl (13.5-17.5); MEAN CORPUSCULAR HGB CONC 33.1 g/dl (32.0-36.5); MEAN CORPUSCULAR VOLUME 87.6 fl (80.0-96.0); PLATELET COUNT, AUTOMATED 184 10^3/uL (150-450); RED BLOOD COUNT 3.31 10^6/uL (4.30-6.10); WHITE BLOOD COUNT 9.3 10^3/uL (4.0-10.0)
[2018-06-20] MEDS: ACETAMINOPHEN TAB 650MG DOSE (2X325MG) PO PRN (20:38)
--- NOTE | 2018-06-20 21:42 | IPN ---
DATE: 06/20/2018 Patient seen and examined. Denies any chest pain, pressure, discomfort. Reported constipation. Mccord catheter was inserted for urinary retention. Denies any shortness of breath, chest pain, pressure or discomfort. VITAL SIGNS: Temperature 99.2, pulse 93, respirations 20, blood pressure 1244/56, pulse oximetry 98% on room air. LABORATORY DATA: WBC 10.2, hemoglobin and hematocrit (H and H) 9.5 and 28.9, platelets 168. Chemistry: Sodium 134, potassium 4.6, chloride 105, bicarbonate 23, BUN 64, creatinine 2.89. PHYSICAL EXAMINATION: GENERAL: Patient alert, comfortable, in no acute distress. HEENT: Normocephalic, atraumatic. NECK: Supple. CARDIAC: Regular. S1, S2. PULMONARY: Bilateral clear. ABDOMEN: Large, hard, tender mass, right lower quadrant with slight bruising. Positive bowel sounds. EXTREMITIES: No clubbing, cyanosis or edema. Dorsalis pedis (DP)/posterior tibial (PT) pulses intact. ASSESSMENT AND PLAN: This is a 73-year-old male patient with underlying medical history of atrial fibrillation, lung cancer with wedge resection and has relapsed and has metastasis to the liver, hypertension, chronic obstructive pulmonary disease (COPD), questionable hepatic thrombus, was on injected Fragmin, presented with abdominal wall pain and was found to have a large abdominal wall hematoma. PROBLEMS: 1. Large abdominal wall hematoma and pelvis hematoma and small amount of intraperitoneal hemorrhage as well. Monitor hemoglobin and hematocrit (H and H). Transfuse as needed. General surgery on consult. Vascular surgery on consult. Continue to transfuse. A total of 4 units has been given. Serial hemoglobin and hematocrit. 2. Acute kidney injury (MYRNA). Monitor BUN and creatinine. Likely prerenal due to acute blood loss anemia. Nephrology on consult. Mccord catheter inserted. Ultrasound, renal and urine study have been ordered. 3. History of liver thrombosis. Unknown if it is venous or arterial. Rapid quadrant ultrasound with Doppler has been ordered. Consulted vascular surgery, Dr. Wilcox. Unable to place the patient on any anticoagulation given acute blood loss anemia due to abdominal hematoma. 4. Acute blood loss anemia. Monitor hemoglobin and hematocrit. Transfuse as above. Surgery has been on consult. 5. Atrial fibrillation. Digoxin. Follow up digoxin level. Given worsening kidney function, unable to provide anticoagulation patient has acute blood loss anemia, mentioned above. Will monitor. 6. Chronic obstructive pulmonary disease (COPD). Continue current medication. 7. Congestive heart failure. Patient currently hypovolemic due to acute blood loss. Lasix and lisinopril on hold. 8. Hypertension. Lisinopril on hold given acute renal failure. 9. Benign prostatic hypertrophy (BPH). Continue Flomax. 10. Constipation. Bowel regimen has been given. 11. Deep venous thrombosis (DVT) prophylaxis. Thromboembolitic deterrents (TEDs) and sequentials. DISPOSITION: Pending clinical improvement. Further recommendations from general surgery, vascular and nephrology.
[2018-06-21] MEDS: oxyCODONE 5MG TAB PO PRN (00:47)
[2018-06-21] MEDS ORDERED: diphenhydrAMINE INJ 50MG/ML VIAL (J1200) IV PRN (01:45)
[2018-06-21 04:00] VITALS: BP 136/62
[2018-06-21] MEDS: SLF 3 ML SYR IV SCH ×3 (05:26→20:50)
[2018-06-21 06:16] LABS: HEMATOCRIT 32.2 % (42.0-52.0); HEMOGLOBIN 10.2 g/dl (13.5-17.5); MEAN CORPUSCULAR HEMOGLOBIN 28.5 pg (27.0-33.0); MEAN CORPUSCULAR HGB CONC 31.7 g/dl (32.0-36.5); MEAN CORPUSCULAR VOLUME 89.9 fl (80.0-96.0); RED BLOOD COUNT 3.58 10^6/uL (4.30-6.10); WHITE BLOOD COUNT 7.2 10^3/uL (4.0-10.0)
[2018-06-21 06:36] LABS: INR 1.17; PARTIAL THROMBOPLASTIN TIME 20.9 SECONDS (25.4-37.6); PROTHROMBIN TIME 15.1 SECONDS (12.1-14.4)
[2018-06-21 06:42] LABS: ALBUMIN 3.2 GM/DL (3.2-5.2); BILIRUBIN,TOTAL 1.7 MG/DL (0.2-1.0); CALCIUM LEVEL 8.6 MG/DL (8.8-10.2); CREATININE FOR GFR 1.98 MG/DL (0.70-1.30); DIGOXIN LEVEL 1.3 NG/ML (0.5-2.0); GLOMERULAR FILTRATION RATE 35.5 (>42); MAGNESIUM LEVEL 2.1 MG/DL (1.8-2.4); POTASSIUM SERUM 5.1 MEQ/L (3.5-5.1); TOTAL PROTEIN 7.2 GM/DL (6.4-8.2)
[2018-06-21 08:00] VITALS: BP 145/80
[2018-06-21 08:35] LABS: PLTBLUE- EDTA FREE CALC 134 K/mm3 (172-450)
[2018-06-21 08:39] LABS: PLTBLUE- EDTA FREE MACHINE 122 10^3/uL (172-450)
[2018-06-21] MEDS: BISACODYL 5 MG TAB PO PRN (09:25)
[2018-06-21] MEDS: TAMSULOSIN 0.4 MG CAP PO SCH (09:25)
[2018-06-21] MEDS: DIGOXIN 0.125 MG TAB PO SCH (09:25)
[2018-06-21] MEDS: SENOKOT S TAB PO SCH ×2 (09:25→20:50)
[2018-06-21 12:00] VITALS: BP 152/74
[2018-06-21] MEDS: TIOTROPIUM INHALER/CAPSULE (SPIRIVA) INH SCH (13:17)
[2018-06-21] MEDS: SYMBICORT 160/4.5MCG INHALER 6GM INH SCH ×2 (13:17→19:50)
--- NOTE | 2018-06-21 15:39 | IPN ---
DATE OF VISIT: 06/20/2018 Mr. Osorio is seen this morning on his bedside. He is feeling about the same but feels that his abdominal pain is somewhat worse compared with yesterday. He just returned from abdominal ultrasound. He has a large rectus sheath hematoma and retroperitoneal hematoma with worsening kidney function. He remains on IV fluid hydration and has also received a total of 4 units of packed red blood cells (PRBCs) transfusion. PHYSICAL EXAMINATION: Temperature 99.2 degrees Fahrenheit, heart rate 92 per minute and respiratory rate 20 per minute. Blood pressure 114/56 mmHg and oxygen saturation 98% on room oxygen. His head is atraumatic. Neck is supple and jugular venous distention (JVD) is still not abnormally elevated. There is no oral thrush or ulcers. Heart sounds are irregular in rhythm and tachycardiac. Lungs seem to be slightly diminished at bases. Abdomen is covered with large abdominal binder. Bowel sounds are present. Extremities have no cyanosis or clubbing. There is no peripheral edema at present. Neurologically he is awake, alert and oriented times three. Today's labs show WBC count 12.2, hemoglobin 7.9 and hematocrit 24.6. Platelets 209. Sodium 134, potassium 4.6, CO2 23, BUN 64 and creatinine 2.89. PROBLEMS: 1. Acute kidney injury superimposed on chronic kidney disease. The patient has only slight change in his BUN and creatinine since yesterday. I would recommend to continue with IV fluid hydration. The patient has poor function from his right kidney most likely related to large retroperitoneal hematoma pushing on the kidney and ureter. At this point there is no emergent indication for dialysis. 2. Hyperkalemia. Sodium level has already corrected and no other intervention is indicated. 3. Hyponatremia. The patient does have mild hyponatremia as he has been receiving half-normal saline IV fluid. I would suggest to change his IV fluid to normal saline and probably cut down the rate. Electrolytes should be checked again tomorrow morning. 4. Acute blood loss anemia. The patient has received a total of 4 units of packed red blood cells (PRBCs). He has large retroperitoneal and rectus sheath hematoma. His anticoagulation has already been stopped. He will need to be monitored closely and at appropriate time his anticoagulation will need to be resumed due to prior history of deep venous thrombosis (DVT) and atrial fibrillation. 5. Hypertension. His blood pressure remains stable at present or somewhat on the low side. All antihypertensives have been on hold. I would recommend to keep him off TESSA inhibitor for now and we can use low-dose beta monalisa if needed for his atrial fibrillation.
[2018-06-21] MEDS ORDERED: SODIUM CHLORIDE NASAL 0.65% SPRAY BTL (OCEAN) PRN (15:45)
[2018-06-21] MEDS: MIRALAX *UNIT DOSE* 17GM PACKET PO SCH (15:51)
[2018-06-21 16:00] VITALS: BP 155/73
--- NOTE | 2018-06-21 16:20 | CR ---
DATE OF CONSULTATION: 06/20/2018 REASON FOR CONSULTATION: Acute renal failure superimposed on chronic kidney disease. HISTORY OF PRESENT ILLNESS: Mr. Osorio is a 73-year-old gentleman with known history of metastatic lung cancer, history of atrial fibrillation, history of systolic congestive heart failure, history of chronic obstructive pulmonary disease (COPD) and hypertension. He presented to the emergency room on 06/18/2018 with worsening pain in the abdomen for a three day duration. Apparently he has history of atrial fibrillation for which he was initially treated with Eliquis; however he still developed some blood clots due to which he was switched to Fragmin. He has been given injections at home every day and after one injection, about three days ago, he developed pain in his abdominal wall. He presented to the emergency room after three days of pain and was found to have a large rectus sheath hematoma and also retroperitoneal hematoma on the right side. The patient is being treated with intravenous (IV) fluids and blood transfusions. Of course, his anticoagulation has already been stopped. A nephrology consultation was requested and patient seen in the evening of 06/19/2018. PAST MEDICAL AND SURGICAL HISTORY: Significant for: 1. History of lung cancer, status post wedge resection with metastasis to liver. 2. History of hypertension. 3. History of systolic congestive heart failure. 4. History of diverticulitis, status post partial colectomy and colostomy, status post reversal of colostomy. 5. History of chronic obstructive pulmonary disease (COPD). 6. History of atrial fibrillation. 7. History of portal vein thrombosis or deep venous thrombosis (DVT). MEDICATIONS: His home medications included: - digoxin - Lasix - albuterol - Symbicort - lisinopril - Fragmin. ALLERGIES: The patient has allergy to RADIOCONTRAST. PERSONAL AND SOCIAL HISTORY: The patient is a former smoker. He does not drink or use any illicit drugs. FAMILY HISTORY: Noncontributory for this admission. REVIEW OF SYSTEMS: The patient is in quite discomfort due to hematoma abdominal wall in the peritoneal area. He denies any fever or chills. He denies any falls prior to this admission. HEAD AND NECK: Negative for any nosebleeds, sore throat or sinus problems. CARDIOVASCULAR SYSTEM: Significant for atrial fibrillation and systolic congestive heart failure. He denies any dyspnea or chest pain at present. RESPIRATORY SYSTEM: Significant for COPD. There is no hemoptysis or pleuritic type of chest pain. GASTROINTESTINAL (GI) SYSTEM: Significant for poor oral intake for a few days due to abdominal pain. He does have prior history of diverticulitis and required a colostomy for awhile, which has been already reversed. There is no history of rectal bleeding or black colored stools. GENITOURINARY () SYSTEM: Negative for dysuria or hematuria. ENDOCRINE SYSTEM: Significant for no history of diabetes or thyroid problems. HEMATOLOGICAL SYSTEM: Significant for chronic anticoagulation for atrial fibrillation and DVT. Now he has rectus sheath hematoma and retroperitoneal hematoma. NEUROLOGICAL SYSTEM: Negative for seizures or stroke. The patient also has history of metastatic lung cancer with metastasis to liver. PSYCHOSOCIAL SYSTEM: Negative for depression or anxiety. SKIN: Negative for rash or ulcers. PHYSICAL EXAMINATION: The patient is lying in the bed without any acute distress at the time of my visit this evening. His temperature is 99.4 degrees Fahrenheit, heart rate about 100 per minute and respiratory rate 20 per minute. Blood pressure 104/50 mmHg and oxygen saturation 91% on room air. Head is atraumatic. Neck is supple and without any jugular venous distention (JVD) or thyroid enlargement. He has no oral thrush or ulcers and oral mucosa is somewhat dry. Heart sounds are irregular and tachycardiac. Lungs have slightly diminished breath sounds, but no wheezing or rales audible. Abdomen is covered with a large abdominal binder. I was not able to examine his abdomen in detail and did not open binder due to risk of worsening of his rectus sheath hematoma and bleeding. Extremities have no cyanosis or clubbing. Neurologically he is awake, alert and oriented times three. LABORATORY DATA: On admission, his WBC count was 15.2, hemoglobin 7.1 and hematocrit 21.8. A repeat hemoglobin is 9.3 and hematocrit 29.5. His admission BUN was 42 and creatinine 2.2. Today, BUN 52 and creatinine 2.7. Sodium 140 and potassium 5.5. CO2 is 25 and calcium 8.2. The patient had a CAT scan of abdomen and pelvis, which I have reviewed independently. He has a large rectus sheath hematoma on the right side and also at least 2 liters peritoneal hematomas, which is quite significant, pushing his right kidney and also a hematoma at the base of his bladder. PROBLEMS: 1. Acute kidney injury superimposed on chronic kidney disease. Most likely this is related to large retroperitoneal hematoma pushing his right kidney significantly displacing it and probably causing some obstructive effect. His left kidney is unaffected and he does have decent urine output. At this point, I would recommend to continue with IV fluid hydration and blood transfusions as needed. We will continue to monitor his kidney function. 2. Hyperkalemia. Most likely related to retroperitoneal hematoma and acute renal injury. This is likely to correct with IV fluid hydration. He does not have any metabolic acidosis. Once his urine output improves, his hyperkalemia is likely to resolve. He was also on lisinopril at home, which has been stopped, and he should remain off his antihypertensives at present as blood pressure is low. 3. Hypertension. Currently he has low blood pressure due to acute blood loss. He is being transfused. All antihypertensives are currently on hold. If needed, we can use low-dose beta-monalisa due to his atrial fibrillation. Thank you for involving me in the care of Mr. Osorio. At this point there is no emergent indication for dialysis and we will follow him along with you.
--- NOTE | 2018-06-21 17:53 | IPNPDOC ---
Text Note Date of Service The patient was seen on 06/21/18. NOTE Subjective: Patient is a 73-year-old male who presented with an abdominal wall hematoma. Patient's been able to eat and drink a little bit more than he has last few days. Patient still says the pain is quite severe. Patient has a Mccord catheter in place which she says is not bothering him. Patient says he has not had a bowel movement for some time. Patient is also not been eating much over the last 3 days. Patient has been mostly laying in bed and has not been able to get up due to the pain. Review of systems General: Patient denies fevers HEENT: Patient denies headaches Cardiovascular: Patient denies chest pain Respiratory: Patient denies shortness of breath, cough GI: Patient endorses abdominal pain secondary to hematoma. Patient denies nausea, vomiting, diarrhea : Patient denies pain or difficulty with urination Neurological: Patient denies numbness or tingling in extremities Extremities: Patient denies swelling or pain in extremities Objective: Vitals: (see below) General: No acute distress, laying comfortably in bed. HEENT: Normocephalic, atraumatic, moist mucous membranes. Neck: No JVD or lymphadenopathy Cardiac: RRR, No murmurs Pulm: Clear to auscultation b/l. No wheezing, rhonchi Abd: Large mass in the lower right quadrant that is tender to the touch. There is some mild ecchymosis overlying this area. The rest of the abdomen is nontender. Ext: No edema or cyanosis. Radial, posterior tibial, and dorsalis pedis pulses equal bilaterally. Labs (see below) Images: No new imaging is been performed since 06/19/2018. Assessment/Plan 1. Large abdominal wall hematoma and pelvis hematoma and a small amount of intraperitoneal hemorrhage as well. Patient's hemoglobin and hematocrit have been stable since yesterday. Patient does not require transfusion today. Gen. surgery is consulted as well as vascular surgery. Total of 4 units have been given to the patient. 2. Acute kidney injury. Monitor BUN/creatinine. Likely prerenal due to acute blood loss. Mccord catheter has been inserted. 3. History of liver thrombosis. Unknown if it's venous or arterial. Vascular surgery has been consulted and an abdominal ultrasound has been ordered with Doppler. We are unable to put the patient on anticoagulation because of the abdominal hematoma. 4. Acute blood loss anemia. We are monitoring hemoglobin and hematocrit. We are transfusing as necessary. 5. Atrial fibrillation. Patient is on digoxin. Digoxin levels are being drawn and have been normal so far. We are not able to provide anticoagulation at this time due to the hematoma. 6. Chronic obstructive pulmonary disease. We will continue the patient's current medication. 7. Congestive heart failure. Patient currently hypovolemic due to acute blood loss. Lasix and lisinopril on hold. 8. Hypertension lisinopril on hold given acute kidney injury. 9. Benign prostatic hypertrophy. Continue Flomax. 10. Constipation. Bowel regimen has been given. DVT prophy: Thromboembolic deterrent stockings and sequential compression devices. Dispo: Pending clinical improvement and further recommendations from general surgery, vascular surgery, and nephrology. VS,Fishbone, I+O VS, Fishbone, I+O Laboratory Tests 06/20/18 18:43 Red Blood Count 3.31 L, Mean Corpuscular Volume 87.6, Mean Corpuscular Hemoglobin 29.0, Mean Corpuscular Hemoglobin Concent 33.1, Red Cell Distribution Width 15.9 H 06/21/18 05:16 Red Blood Count 3.58 L, Mean Corpuscular Volume 89.9, Mean Corpuscular Hemoglobin 28.5, Mean Corpuscular Hemoglobin Concent 31.7 L, Red Cell Distribution Width 15.9 H, Calcium Level 8.6 L, Aspartate Amino Transf (AST/SGOT) 57 H, Alanine Aminotransferase (ALT/SGPT) 62, Alkaline Phosphatase 117, Total Bilirubin 1.7 H, Total Protein 7.2, Albumin 3.2 Vital Signs Date Time Temp Pulse Resp B/P (MAP) Pulse Ox O2 Delivery O2 Flow Rate FiO2 06/21/18 12:00 99.5 94 18 152/74 (100) 94 06/18/18 19:50 Room Air I&O- Last 24 Hours up to 6 AM 06/21/18 06:00 Intake Total 1340 ml Output Total 1400 ml Balance -60 ml GME ATTESTATION GME ATTESTATION My faculty preceptor for this patient encounter was physically present during the encounter and was fully available. All aspects of the patient interview, examination, medical decision making process, and medical care plan development were reviewed and approved by the faculty preceptor. The faculty preceptor is aware and concurs with the plan as stated in the body of this note and will attest to such by his/her cosignature. ATTENDING NOTE I have both independently examined this patient as well as reviewed the note I have discussed in detail the findings and plan of treatment as documented in the note. I will continue to follow the patient and offer further guidance to the patients care as necessary during this hospital stay. SHAZIA Rausch MD, DO Jun 21, 2018 17:53 WOOD HARTMAN MD Jun 22, 2018 07:43
[2018-06-21 20:00] VITALS: BP 150/78
[2018-06-22] VITALS: BP 149/69
[2018-06-22 04:00] VITALS: BP 143/78
[2018-06-22] MEDS: oxyCODONE 5MG TAB PO PRN ×3 (04:13→21:19)
[2018-06-22] MEDS: SLF 3 ML SYR IV SCH ×3 (05:31→20:05)
[2018-06-22 06:12] LABS: MEAN CORPUSCULAR HEMOGLOBIN 28.9 pg (27.0-33.0); MEAN CORPUSCULAR HGB CONC 33.3 g/dl (32.0-36.5); MEAN CORPUSCULAR VOLUME 86.7 fl (80.0-96.0); PLATELET COUNT, AUTOMATED 212 10^3/uL (150-450); RED BLOOD COUNT 3.46 10^6/uL (4.30-6.10); WHITE BLOOD COUNT 8.3 10^3/uL (4.0-10.0)
[2018-06-22 06:18] LABS: INR 1.22; PROTHROMBIN TIME 15.6 SECONDS (12.1-14.4)
[2018-06-22 06:19] LABS: PARTIAL THROMBOPLASTIN TIME 38.4 SECONDS (25.4-37.6)
[2018-06-22 06:39] LABS: BILIRUBIN,TOTAL 1.5 MG/DL (0.2-1.0); CALCIUM LEVEL 8.7 MG/DL (8.8-10.2); CREATININE FOR GFR 1.39 MG/DL (0.70-1.30); GLOMERULAR FILTRATION RATE 53.5 (>42); POTASSIUM SERUM 4.8 MEQ/L (3.5-5.1); TOTAL PROTEIN 6.9 GM/DL (6.4-8.2)
[2018-06-22] MEDS: TIOTROPIUM INHALER/CAPSULE (SPIRIVA) INH SCH (07:46)
[2018-06-22] MEDS: SYMBICORT 160/4.5MCG INHALER 6GM INH SCH ×2 (07:46→21:12)
[2018-06-22 08:00] VITALS: BP 160/70
[2018-06-22] MEDS: TAMSULOSIN 0.4 MG CAP PO SCH (08:09)
[2018-06-22] MEDS: SENOKOT S TAB PO SCH ×2 (08:09→20:05)
[2018-06-22] MEDS: MIRALAX *UNIT DOSE* 17GM PACKET PO SCH (08:09)
[2018-06-22] MEDS: DIGOXIN 0.125 MG TAB PO SCH (08:10)
--- NOTE | 2018-06-22 08:18 | IPN ---
DATE: 06/21/2018 Mr. Osorio is seen this morning on his bedside. He continues to have complaint of pain in right lower abdomen. He has a large right rectus sheath hematoma and distal retroperitoneal hematoma. He developed acute kidney injury superimposed on chronic kidney disease due to page right kidney. He has good urine output and denies any nausea or vomiting. He has not been eating very well and was hydrated with IV fluid until this morning. On physical exam, temperature 98.4 degrees Fahrenheit, heart rate 92 per minute and respiratory rate 18 per minute. Blood pressure 145/80 mmHg and oxygen saturation 93% on room air. Head is atraumatic. Neck is supple and without jugular venous distention (JVD) or thyroid enlargement. Heart sounds are irregular in rhythm. Lungs with slightly diminished breath sounds at bases. Abdomen is soft on the left side. There is a large abdominal binder in place. Extremities have no cyanosis or clubbing. Today's labs show a WBC count 7.2, hemoglobin 10.2 and hematocrit 32.2. Sodium 136, potassium 5.1, CO2 21, BUN 55 and creatinine 1.98. PROBLEMS: 1. Acute kidney injury superimposed on chronic kidney disease. Kidney function has started to improve. He had a decent urine output yesterday with total output of 1150 mL. IV fluid has been stopped as the patient has received a significant amount of fluid with a total positive fluid balance of almost 3 liters. 2. Retroperitoneal and rectus sheath hematoma. Patient seems to be stable now after transfusion of multiple units of packed red blood cells (RBCs). His anticoagulation has been stopped due to bleeding issue. I will defer to hospitalist service to consider to resume his anticoagulation when appropriate.
--- NOTE | 2018-06-22 15:00 | IPN ---
DATE: 06/22/2018 Mr. Osorio is seen this morning on his bedside. He is feeling better and pain has improved. He still has discomfort in right lower abdominal area where he has large hematoma. He denies any dyspnea or chest pain. His intravenous (IV) fluid has already been stopped. Oral intake is still poor. PHYSICAL EXAMINATION: Temperature 98.8 degrees Fahrenheit, heart rate 92 per minute and respiratory rate 18 per minute. Blood pressure 160/70 mmHg and oxygen saturation 93% on room air. His head is atraumatic. Neck is supple and without jugular venous distention (JVD). Heart sounds are irregular in rhythm. Lungs sound clear to auscultation. Abdomen has large hematoma and right rectus sheath area which extends all the way down to right lower quadrant. Bowel sounds are present. Extremities have no cyanosis or clubbing. Neurologically he is awake, alert and oriented times three. Today's labs show WBC count 8.3, hemoglobin 10.0 and hematocrit 30. Sodium 138, potassium 4.8, CO2 21, BUN 41 and creatinine 1.39. PROBLEMS 1. Acute renal failure superimposed on chronic kidney disease. The patient has significant improvement in kidney function over the last couple of days. He has decent urine output. His acute renal failure was most likely related to acute blood loss and possible obstruction by large retroperitoneal hematoma. In any event, kidney function has started to improve and is likely to return back to baseline. 2. Acute blood loss anemia. His anemia is improved and stable following transfusion. He is off anticoagulation. From a renal standpoint, the patient is doing very well and there is no need for a renal followup anymore. I am signing off his case. Please do not hesitate to call me back should you need any further assistance.
[2018-06-22 16:00] VITALS: BP_SYST 120; BP_SYST 132; BP_DIAS 57; BP_DIAS 69
--- NOTE | 2018-06-22 17:01 | IPNPDOC ---
Text Note Date of Service The patient was seen on 06/22/18. NOTE Subjective: Patient is a 73-year-old male who initially presented to the hospital with an abdominal hematoma. Patient is doing better. He is eating and drinking more than he had. Patient says he just feels tired because he has not been able to get a lot of sleep because people keep coming into the room. He is still not been able to get up and walk around too much. Patient states that he is having some upper abdominal pain. He says this is relieved when the abdominal binder is taken off. He has not had a bowel movement until today. Patient says the pain is getting better day by day. Review of systems General: Patient denies fevers HEENT: Patient denies headaches Cardiovascular: Patient denies chest pain Respiratory: Patient denies shortness of breath, cough GI: Patient denies abdominal pain, nausea, vomiting, diarrhea : Patient denies pain or difficulty with urination Neurological: Patient denies numbness or tingling in extremities Extremities: Patient denies swelling or pain in extremities Objective: Vitals: (see below) General: No acute distress, laying comfortably in bed. HEENT: Normocephalic, atraumatic, moist mucous membranes. Neck: No JVD or lymphadenopathy Cardiac: RRR, No murmurs Pulm: Clear to auscultation b/l. No wheezing, rhonchi Abd: Large tender mass in the lower right quadrant. There is some ecchymosis over the area. The upper abdomen is mildly tender to palpation. Normoactive bowel sounds Ext: No edema or cyanosis. Radial, posterior tibial, and dorsalis pedis pulses equal bilaterally. Labs (see below) Images: No new imaging has been performed. Assessment/Plan 1. Large abdominal wall hematoma and pelvis hematoma and a small amount of intraperitoneal hemorrhage as well. Patient's hemoglobin and hematocrit have been stable the last 2 days. Patient has not required transfusions. Gen. surgery and vascular surgery have been consulted. Total 4 units of blood and given to the patient. Patient is stable enough to be downgraded from PCU status to medical surgical status. 2. Acute kidney injury. Monitor BUN/creatinine. Likely prerenal due to acute blood loss. Nephrology is on consult. Mccord catheter is inserted and can be DC'd tomorrow. 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 Vascular surgery has been consulted. Abdominal ultrasound with Doppler was ordered. At this time we are unable to put the patient on anticoagulation because the abdominal hematoma. Plan is to put the patient back on anticoagulation medication in the next 1-2 days. 4. Acute blood loss anemia. Hemoglobin and hematocrit are stable. 5. Atrial fibrillation. Patient is on digoxin and shocks and levels have been drawn and normal so far. Anticoagulation will be restarted in the next 1-2 days. 6. COPD. Continue patient's current medication. 7. Congestive heart failure. Patient still hypovolemic. Lasix lisinopril on hold. 8. Hypertension. Lisinopril on hold due to acute kidney injury. 9. Benign prostatic hypertrophy. Continue Flomax. 10. Constipation. Bowel regimen has been given and a documented bowel movement is in the chart. DVT prophy: Thromboembolic deterrent stockings and sequential compression devices. Dispo: Pending clinical improvement and further recommendations from general surgery, vascular surgery, and nephrology. VS,Fishbone, I+O VS, Fishbone, I+O Laboratory Tests 06/22/18 05:50 Red Blood Count 3.46 L, Mean Corpuscular Volume 86.7, Mean Corpuscular Hemogl obin 28.9, Mean Corpuscular Hemoglobin Concent 33.3, Red Cell Distribution Width 15.5 H, Calcium Level 8.7 L, Aspartate Amino Transf (AST/SGOT) 54 H, Alanine Aminotransferase (ALT/SGPT) 56, Alkaline Phosphatase 134 H, Total Bilirubin 1.5 H, Total Protein 6.9, Albumin 3.0 L Vital Signs Date Time Temp Pulse Resp B/P (MAP) Pulse Ox O2 Delivery O2 Flow Rate FiO2 06/22/18 16:00 98.3 98 17 132/69 (90) 97 06/18/18 19:50 Room Air I&O- Last 24 Hours up to 6 AM 06/22/18 06:00 Intake Total 240 ml Output Total 2475 ml Balance -2235 ml GME ATTESTATION GME ATTESTATION My faculty preceptor for this patient encounter was physically present during the encounter and was fully available. All aspects of the patient interview, examination, medical decision making process, and medical care plan development were reviewed and approved by the faculty preceptor. The faculty preceptor is aware and concurs with the plan as stated in the body of this note and will attest to such by his/her cosignature. ATTENDING NOTE I have both independently examined this patient as well as reviewed the note I have discussed in detail the findings and plan of treatment as documented in the note. I will continue to follow the patient and offer further guidance to the patients care as necessary during this hospital stay. SHAZIA Rausch MD, DO Jun 22, 2018 17:01 WOOD HARTMAN MD Jun 23, 2018 19:13
[2018-06-22 20:00] VITALS: BP 148/60
[2018-06-23 04:00] VITALS: BP 140/70
[2018-06-23] MEDS: SLF 3 ML SYR IV SCH ×3 (05:49→23:23)
[2018-06-23] MEDS: oxyCODONE 5MG TAB PO PRN ×3 (05:50→20:40)
[2018-06-23 06:02] LABS: HEMATOCRIT 30.5 % (42.0-52.0); HEMOGLOBIN 10.1 g/dl (13.5-17.5); MEAN CORPUSCULAR HEMOGLOBIN 29.1 pg (27.0-33.0); MEAN CORPUSCULAR HGB CONC 33.1 g/dl (32.0-36.5); MEAN CORPUSCULAR VOLUME 87.9 fl (80.0-96.0); PLATELET COUNT, AUTOMATED 250 10^3/uL (150-450); RED BLOOD COUNT 3.47 10^6/uL (4.30-6.10); WHITE BLOOD COUNT 9.1 10^3/uL (4.0-10.0)
[2018-06-23 06:30] LABS: BILIRUBIN,TOTAL 1.1 MG/DL (0.2-1.0); CALCIUM LEVEL 8.4 MG/DL (8.8-10.2); CREATININE FOR GFR 1.3 MG/DL (0.70-1.30); GLOMERULAR FILTRATION RATE 57.8 (>42); MAGNESIUM LEVEL 1.9 MG/DL (1.8-2.4); POTASSIUM SERUM 4.5 MEQ/L (3.5-5.1); TOTAL PROTEIN 7.1 GM/DL (6.4-8.2)
[2018-06-23] MEDS: TIOTROPIUM INHALER/CAPSULE (SPIRIVA) INH SCH (07:42)
[2018-06-23] MEDS: SYMBICORT 160/4.5MCG INHALER 6GM INH SCH ×2 (07:42→20:32)
[2018-06-23 08:00] VITALS: BP 135/72
[2018-06-23] MEDS: SENOKOT S TAB PO SCH ×2 (08:43→20:40)
[2018-06-23] MEDS: TAMSULOSIN 0.4 MG CAP PO SCH (08:43)
[2018-06-23] MEDS: MIRALAX *UNIT DOSE* 17GM PACKET PO SCH (08:43)
[2018-06-23] MEDS: DIGOXIN 0.125 MG TAB PO SCH (08:43)
[2018-06-23 12:00] VITALS: BP 122/78
[2018-06-23 16:00] VITALS: BP 132/76
--- NOTE | 2018-06-23 17:30 | IPNPDOC ---
Text Note Date of Service The patient was seen on 06/23/18. NOTE Subjective: Patient is a 73-year-old male who presented to the hospital with complaint of abdominal pain was found to have an abdominal wall hematoma. Today, patient is doing better. Patient did have a bowel movement yesterday. Patient has been drinking more in the last day. Patient does feel better than he has the last few days. Patient still has Mccord catheter in which is not bothering him. This will be removed today. Patient has been eating more today for last few days. Patient still does have tenderness and pain in the right lower quadrant however he is pain-free in all other areas of his abdomen. Review of systems General: Patient denies fevers HEENT: Patient denies headaches Cardiovascular: Patient denies chest pain Respiratory: Patient denies shortness of breath, cough GI: Patient endorses abdominal pain as described above. Patient denies nausea, vomiting, diarrhea : Patient denies pain or difficulty with urination Neurological: Patient denies numbness or tingling in extremities Extremities: Patient denies swelling or pain in extremities Objective: Vitals: (see below) General: No acute distress, laying comfortably in bed. HEENT: Normocephalic, atraumatic, moist mucous membranes. Neck: No JVD or lymphadenopathy Cardiac: RRR, No murmurs Pulm: Clear to auscultation b/l. No wheezing, rhonchi Abd: Tender mass in the right lower quadrant. There is some overlying ecchymosis. Nontender in the other areas of the abdomen. Normoactive bowel sounds. Ext: No edema or cyanosis. Radial, posterior tibial, and dorsalis pedis pulses equal bilaterally. Labs (see below) Images: No new imaging has been performed. Assessment/Plan 1. Large abdominal wall hematoma and pelvis hematoma and a small amount of intraperitoneal hemorrhage. Patient's hemoglobin and hematocrit and stable last 3 days. Gen. surgery and vascular surgery has been consulted. A total of 4 units of blood have been given to the patient. The last of these transfusions was on 06/20/2018. Anticoagulation therapy can be restarted tomorrow. 2. Acute kidney injury. Monitor BUN/creatinine. This is likely prerenal due to acute blood loss. Nephrology is on consult and we appreciate their help in caring for this patient. Patient's BUN and creatinine are slightly improved in comparison to yesterday's studies. 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 Vascular surgery has been consulted and we appreciate their help with caring for this patient. Plan is to restart anticoagulation tomorrow. 4. Acute blood loss anemia. Hemoglobin and hematocrit are stable. 5. Atrial fibrillation. Patient is on digoxin and levels have been stable. Anticoagulation will be restarted tomorrow. 6. COPD. Continue patient's current medications. 7. Congestive heart failure. Patient is improving. Lasix and lisinopril can be restarted in the next 1-2 days. 8. Hypertension. Lisinopril is still on hold and can be restarted as kidney function continues to improve. 9. Benign prostatic hypertrophy. Continue Flomax. 10. Constipation. Bowel regimen has been given. We will continue to monitor. DVT prophy: Thromboembolic deterrent stockings and sequential compression devices. Anticoagulation to be restarted tomorrow. Dispo: Pending clinical improvement and further recommendations from general surgery, vascular surgery, and nephrology. VS,Irinae, I+O VS, Irinae, I+O Laboratory Tests 06/23/18 05:46 Red Blood Count 3.47 L, Mean Corpuscular Volume 87.9, Mean Corpuscular Hemoglobin 29.1, Mean Corpuscular Hemoglobin Concent 33.1, Red Cell Distribution Width 15.6 H, Calcium Level 8.4 L, Aspartate Amino Transf (AST/SGOT) 48 H, A lanine Aminotransferase (ALT/SGPT) 51, Alkaline Phosphatase 123 H, Total Bilirubin 1.1 H, Total Protein 7.1, Albumin 3.0 L Vital Signs Date Time Temp Pulse Resp B/P (MAP) Pulse Ox O2 Delivery O2 Flow Rate FiO2 06/23/18 16:51 18 06/23/18 16:00 98.1 95 132/76 (94) 95 06/22/18 16:00 06/18/18 19:50 Room Air I&O- Last 24 Hours up to 6 AM 06/23/18 06:00 Intake Total 1040 ml Output Total 1375 ml Balance -335 ml GME ATTESTATION GME ATTESTATION My faculty preceptor for this patient encounter was physically present during the encounter and was fully available. All aspects of the patient interview, examination, medical decision making process, and medical care plan development were reviewed and approved by the faculty preceptor. The faculty preceptor is aware and concurs with the plan as stated in the body of this note and will attest to such by his/her cosignature. ATTENDING NOTE I have both independently examined this patient as well as reviewed the note I have discussed in detail the findings and plan of treatment as documented in the note. I will continue to follow the patient and offer further guidance to the patients care as necessary during this hospital stay. SHAZIA Rausch MD, DO Jun 23, 2018 17:30 WOOD HARTMAN MD Jun 23, 2018 19:19
[2018-06-23 21:51] VITALS: BP 132/73
[2018-06-24] MEDS: SLF 3 ML SYR IV SCH ×3 (05:17→21:21)
[2018-06-24 05:59] LABS: HEMATOCRIT 32.6 % (42.0-52.0); HEMOGLOBIN 10.5 g/dl (13.5-17.5); MEAN CORPUSCULAR HEMOGLOBIN 28.8 pg (27.0-33.0); MEAN CORPUSCULAR HGB CONC 32.2 g/dl (32.0-36.5); MEAN CORPUSCULAR VOLUME 89.3 fl (80.0-96.0); PLATELET COUNT, AUTOMATED 290 10^3/uL (150-450); RED BLOOD COUNT 3.65 10^6/uL (4.30-6.10); WHITE BLOOD COUNT 9.1 10^3/uL (4.0-10.0)
[2018-06-24 06:00] VITALS: BP 155/83
[2018-06-24 06:16] LABS: ALBUMIN 3.2 GM/DL (3.2-5.2); BILIRUBIN,TOTAL 1.3 MG/DL (0.2-1.0); CALCIUM LEVEL 8.8 MG/DL (8.8-10.2); CREATININE FOR GFR 1.32 MG/DL (0.70-1.30); GLOMERULAR FILTRATION RATE 56.8 (>42); MAGNESIUM LEVEL 2.1 MG/DL (1.8-2.4); POTASSIUM SERUM 4.4 MEQ/L (3.5-5.1); TOTAL PROTEIN 7.6 GM/DL (6.4-8.2)
[2018-06-24] MEDS: DIGOXIN 0.125 MG TAB PO SCH (08:43)
[2018-06-24] MEDS: SENOKOT S TAB PO SCH ×2 (08:43→21:21)
[2018-06-24] MEDS: TAMSULOSIN 0.4 MG CAP PO SCH (08:43)
[2018-06-24] MEDS: MIRALAX *UNIT DOSE* 17GM PACKET PO SCH (08:43)
[2018-06-24] MEDS: SYMBICORT 160/4.5MCG INHALER 6GM INH SCH ×2 (08:49→20:31)
[2018-06-24] MEDS: TIOTROPIUM INHALER/CAPSULE (SPIRIVA) INH SCH (08:49)
[2018-06-24 10:00] VITALS: BP 130/58
[2018-06-24] MEDS: ENOXAPARIN 60 MG/0.6 ML SYR (J1650) SC SCH ×2 (12:22→21:21)
[2018-06-24 14:00] VITALS: BP 134/89
--- NOTE | 2018-06-24 14:20 | IPNPDOC ---
Text Note Date of Service The patient was seen on 06/24/18. NOTE Subjective: Patient is a 73-year-old male who presented with abdominal wall hematoma secondary to Fragmin use. Patient is doing better today. Patient's hemoglobin and hematocrit have remained stable. Patient has been able to get up and walk around and is cleared physical therapy. Patient is doing otherwise well today. Patient is eating and drinking without difficulty. Patient has had a bowel movement. Patient does not complain of any pain or difficulty with urination since Mccord catheter has been removed. Review of systems General: Patient denies fevers HEENT: Patient denies headaches Cardiovascular: Patient denies chest pain Respiratory: Patient denies shortness of breath, cough GI: Patient still complains of abdominal pain on the right side secondary to hematoma. Patient denies nausea, vomiting, diarrhea : Patient denies pain or difficulty with urination Neurological: Patient denies numbness or tingling in extremities Extremities: Patient denies swelling or pain in extremities Objective: Vitals: (see below) General: No acute distress, laying comfortably in bed. HEENT: Normocephalic, atraumatic, moist mucous membranes. Neck: No JVD or lymphadenopathy Cardiac: RRR, No murmurs Pulm: Clear to auscultation b/l. No wheezing, rhonchi Abd: Large hard and tender mass with overlying ecchymosis in the right lower quadrant. Other parts of the abdomen are nontender to palpation. Ext: No edema or cyanosis. Radial, posterior tibial, and dorsalis pedis pulses equal bilaterally. Labs (see below) Images: No new imaging has been performed Assessment/Plan 1. Large abdominal wall hematoma and that was hematoma and small amount of intraperitoneal hemorrhage. Patient's hemoglobin and hematocrit has been stable for the last 4 days. Gen. surgery has signed off. A total of 4 units of blood have been giving to the patient the last of which being on 06/20/2018. Anticoagulation has been restarted today. Spoke with pharmacy about injection sites for both Lovenox and Fragmin. Patient does not have his medication with him and Fragmin is not a hospital formulary. We have started Lovenox 50 mg twice a day as to not delay restarting anticoagulation. Pharmacy did say we are allowed to inject Lovenox in the buttocks and upper outer thigh if necessary. We will monitor patient's hemoglobin and hematocrit over the next 2 days in order to make sure the patient does not begin to bleed again. 2. Acute kidney injury. Monitor BUN/creatinine. This was likely prerenal due to acute blood loss. Nephrology is on consult and we appreciate their help in caring for this patient. Patient's BUN and creatinine have been stable over the last 3 days. 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 Vascular surgery has been consulted and we appreciate their help with caring for this patient. Anticoagulation has been restarted as stated above. 4. Acute blood loss anemia. Hemoglobin and hematocrit are stable. We will continue to monitor as anticoagulation is restarted. 5. Atrial fibrillation. Patient is on digoxin and levels have been stable. Anti coagulation with Lovenox 50 mg twice a day has been started today. 6. COPD. Continue patient's current medications. 7. Congestive heart failure. Patient is improving. Lasix and lisinopril still being held until patient's blood counts are stable and we are going to discharge. 8. Hypertension. Lisinopril on hold due to acute kidney injury. 9. Benign prostatic hypertrophy. Continue Flomax. 10. Constipation. Bowel regimen has been given and we will continue to monitor. DVT prophy: Lovenox 50 mg twice a day Dispo: Pending stable hemoglobin and hematocrit for the next 2 days. Plan is to discharge patient on Thursday if counts are stable. VS,Fishbone, I+O VS, Fishbone, I+O Laboratory Tests 06/24/18 05:25 Red Blood Count 3.65 L, Mean Corpuscular Volume 89.3, Mean Corpuscular Hemoglobin 28.8, Mean Corpuscular Hemoglobin Concent 32.2, Red Cell Distribution Width 15.5 H, Calcium Level 8.8, Aspartate Amino Transf (AST/SGOT) 51 H, Alanine Aminotransferase (ALT/SGPT) 53, Alkaline Phosphatase 132 H, Total Bilirubin 1.3 H, Total Protein 7.6, Albumin 3.2 Vital Signs Date Time Temp Pulse Resp B/P (MAP) Pulse Ox O2 Delivery O2 Flow Rate FiO2 06/24/18 08:43 96 06/24/18 06:00 98.9 18 155/83 (107) 95 06/22/18 16:00 06/18/18 19:50 Room Air I&O- Last 24 Hours up to 6 AM 06/24/18 06:00 Intake Total 630 ml Output Total 0 ml Balance 630 ml GME ATTESTATION GME ATTESTATION My faculty preceptor for this patient encounter was physically present during the encounter and was fully available. All aspects of the patient interview, examination, medical decision making process, and medical care plan development were reviewed and approved by the faculty preceptor. The faculty preceptor is aware and concurs with the plan as stated in the body of this note and will attest to such by his/her cosignature. ATTENDING NOTE I have both independently examined this patient as well as reviewed the note I have discussed in detail the findings and plan of treatment as documented in the note. I will continue to follow the patient and offer further guidance to the patients care as necessary during this hospital stay. SHAZIA Rausch MD, DO Jun 24, 2018 14:20 WOOD HARTMAN MD Jun 24, 2018 14:44
[2018-06-24 17:30] VITALS: BP 145/75
[2018-06-24] MEDS: ACETAMINOPHEN TAB 650MG DOSE (2X325MG) PO PRN (17:48)
[2018-06-24 18:00] VITALS: BP 145/75
[2018-06-24 22:00] VITALS: BP 152/79
[2018-06-25] MEDS: SLF 3 ML SYR IV SCH ×3 (05:55→22:35)
[2018-06-25 06:00] VITALS: BP 157/81
[2018-06-25 06:11] LABS: HEMOGLOBIN 10.4 g/dl (13.5-17.5); MEAN CORPUSCULAR HEMOGLOBIN 28.7 pg (27.0-33.0); MEAN CORPUSCULAR HGB CONC 32.5 g/dl (32.0-36.5); MEAN CORPUSCULAR VOLUME 88.2 fl (80.0-96.0); PLATELET COUNT, AUTOMATED 311 10^3/uL (150-450); RED BLOOD COUNT 3.63 10^6/uL (4.30-6.10); WHITE BLOOD COUNT 10.1 10^3/uL (4.0-10.0)
[2018-06-25 06:29] LABS: ALBUMIN 3.1 GM/DL (3.2-5.2); BILIRUBIN,TOTAL 1.3 MG/DL (0.2-1.0); CALCIUM LEVEL 8.8 MG/DL (8.8-10.2); CREATININE FOR GFR 1.3 MG/DL (0.70-1.30); GLOMERULAR FILTRATION RATE 57.8 (>42); POTASSIUM SERUM 4.4 MEQ/L (3.5-5.1); TOTAL PROTEIN 7.5 GM/DL (6.4-8.2)
[2018-06-25] MEDS: MIRALAX *UNIT DOSE* 17GM PACKET PO SCH (08:33)
[2018-06-25] MEDS: DIGOXIN 0.125 MG TAB PO SCH (08:33)
[2018-06-25] MEDS: SENOKOT S TAB PO SCH ×2 (08:33→20:21)
[2018-06-25] MEDS: TAMSULOSIN 0.4 MG CAP PO SCH (08:33)
[2018-06-25] MEDS: ENOXAPARIN 60 MG/0.6 ML SYR (J1650) SC SCH ×2 (08:34→20:22)
[2018-06-25] MEDS: SYMBICORT 160/4.5MCG INHALER 6GM INH SCH ×2 (08:39→19:43)
[2018-06-25] MEDS: TIOTROPIUM INHALER/CAPSULE (SPIRIVA) INH SCH (08:39)
[2018-06-25 10:00] VITALS: BP 161/76
[2018-06-25] MEDS: oxyCODONE 5MG TAB PO PRN (12:57)
[2018-06-25 14:00] VITALS: BP 150/72
[2018-06-25 18:00] VITALS: BP 151/76
--- NOTE | 2018-06-25 19:41 | IPN ---
DATE: 06/25/2018 Patient seen and examined, continued to have abdominal pain that is unchanged but denies any chest pain, pressure, discomfort. Denies any cough. Denies any shortness of breath. VITAL SIGNS: Temperature 99, pulse 65, respirations 18, blood pressure 150/72, pulse oximetry 95% on room air. LABORATORY DATA: WBC 10.1, hemoglobin and hematocrit 10.4 over 32, platelets 311. Chemistry: Sodium 138, potassium 4.4, chloride 109, bicarbonate 23, BUN 35, creatinine 1.3. PHYSICAL EXAMINATION: GENERAL: Patient comfortable, ambulating, in no acute distress. HEENT: Normocephalic, atraumatic. PULMONARY: Bilaterally clear. CARDIAC: Regular, S1, S2. ABDOMEN: Large, hard tender mass overlying right lower quadrant of the patient's abdomen, tender to palpation. Positive bowel sounds. EXTREMITIES: No clubbing, cyanosis, or edema. ASSESSMENT AND PLAN: This is a 73-year-old male patient with underlying medical history of atrial fibrillation, lung cancer with wedge resection, that has relapsed and has metastasis to the liver, hypertension, chronic obstructive pulmonary disease (COPD), questionable liver thrombus, on injected Fragmin, presented with abdominal wall pain, found to have a large abdominal wall hematoma. PROBLEMS: 1. Large abdominal wall hematoma with small amount of intraperitoneal hemorrhage. Hemoglobin and hematocrit has been stable. Transfused a total of four units of packed red blood cells. Anticoagulation has been restarted. Will continue to monitor hemoglobin and hematocrit. Case was discussed with general surgery. 2. Fever, likely reactive to the hematoma. Blood culture has been sent. Urinalysis (UA) has been appreciated. Will monitor closely. Patient asymptomatic. 3. Acute kidney injury, likely due to acute blood loss anemia. Nephrology consulted. Currently stable. Patient at one point had a Mccord catheter, currently off Mccord. 4. History of liver thrombus. Unknown arterial versus venous. Case was discussed with vascular surgery, no indication for surgery, currently has restarted anticoagulation. 5. Acute blood loss anemia. Monitor hemoglobin and hematocrit. Transfuse as needed secondary to hematoma. 6. History of chronic obstructive pulmonary disease. Currently not having any wheeze. Continue home medication. 7. Congestive heart failure (CHF). Patient currently euvolemic. Monitor closely. Lasix and angiotensin-converting enzyme (TESSA) inhibitor on hold given acute kidney injury. 8. Hypertension. Lisinopril on hold. Monitor blood pressure. 9. BPH. Continue current medication. 10. Constipation. Bowel regimen given. 11. Deep vein thrombosis (DVT) prophylaxis. On Lovenox subcu twice a day. DISPOSITION: Will monitor hemoglobin and hematocrit and patient's hematoma. If stable, likely discharge on Thursday. Passed physical therapy. MTDD
[2018-06-25 22:00] VITALS: BP 139/78
[2018-06-26] MEDS: SLF 3 ML SYR IV SCH ×3 (05:23→22:00)
[2018-06-26 06:00] VITALS: BP 161/82
[2018-06-26 06:38] LABS: HEMATOCRIT 30.9 % (42.0-52.0); HEMOGLOBIN 10.1 g/dl (13.5-17.5); MEAN CORPUSCULAR HEMOGLOBIN 28.6 pg (27.0-33.0); MEAN CORPUSCULAR HGB CONC 32.7 g/dl (32.0-36.5); MEAN CORPUSCULAR VOLUME 87.5 fl (80.0-96.0); PLATELET COUNT, AUTOMATED 344 10^3/uL (150-450); RED BLOOD COUNT 3.53 10^6/uL (4.30-6.10); WHITE BLOOD COUNT 10.8 10^3/uL (4.0-10.0)
[2018-06-26 07:04] LABS: ALT/SGPT 48 U/L (12-78); BILIRUBIN,TOTAL 1.3 MG/DL (0.2-1.0); BLOOD UREA NITROGEN 31 MG/DL (7-18); CALCIUM LEVEL 8.6 MG/DL (8.8-10.2); CARBON DIOXIDE LEVEL 21 MEQ/L (21-32); CHLORIDE LEVEL 110 MEQ/L (98-107); CREATININE FOR GFR 1.21 MG/DL (0.70-1.30); GLOMERULAR FILTRATION RATE > 60.0 (>42); GLUCOSE, FASTING 91 MG/DL (70-100); POTASSIUM SERUM 4.2 MEQ/L (3.5-5.1); SODIUM LEVEL 137 MEQ/L (136-145); TOTAL PROTEIN 7.1 GM/DL (6.4-8.2)
[2018-06-26] MEDS: SENOKOT S TAB PO SCH ×2 (08:20→20:40)
[2018-06-26] MEDS: TAMSULOSIN 0.4 MG CAP PO SCH (08:20)
[2018-06-26] MEDS: MIRALAX *UNIT DOSE* 17GM PACKET PO SCH (08:20)
[2018-06-26] MEDS: ENOXAPARIN 60 MG/0.6 ML SYR (J1650) SC SCH ×2 (08:21→20:40)
[2018-06-26] MEDS: DIGOXIN 0.125 MG TAB PO SCH (08:22)
[2018-06-26] MEDS: SYMBICORT 160/4.5MCG INHALER 6GM INH SCH ×2 (09:45→21:10)
[2018-06-26] MEDS: TIOTROPIUM INHALER/CAPSULE (SPIRIVA) INH SCH (09:46)
--- NOTE | 2018-06-26 12:04 | IPNPDOC ---
Text Note Date of Service The patient was seen on 06/26/18. NOTE Subjective: Patient is a 73-year-old male who presented with abdominal wall hematoma secondary to anticoagulant injection use. Patient has been doing better. Patient states he still feels uncomfortable going home today as he feels like he is in too much pain and too weak to continue to take care of himself at home. Patient did have a fever documented 2 days ago however, workup for possible sources of fever has been negative. Patient is feeling okay today. Review of systems General: Patient denies fevers HEENT: Patient denies headaches Cardiovascular: Patient denies chest pain Respiratory: Patient denies shortness of breath, cough GI: Patient endorses abdominal pain. Patient denies nausea, vomiting, diarrhea : Patient denies pain or difficulty with urination Neurological: Patient denies numbness or tingling in extremities Extremities: Patient denies swelling or pain in extremities Objective: Vitals: (see below) General: No acute distress, laying comfortably in bed. HEENT: Normocephalic, atraumatic, moist mucous membranes. Neck: No JVD or lymphadenopathy Cardiac: RRR, No murmurs Pulm: Clear to auscultation b/l. No wheezing, rhonchi Abd: Area of tenderness and firmness with ecchymosis overlying the right lower quadrant. Nontender to palpation in the left side of the abdomen. Normoactive bowel sounds. Ext: No edema or cyanosis. Radial, posterior tibial, and dorsalis pedis pulses equal bilaterally. Labs (see below) Images: No imaging is been performed. Assessment/Plan 1. Large abdominal wall hematoma with a small amount of intraperitoneal hemorrhage. Hemoglobin and hematocrit have been stable since anticoagulation was restarted on . Patient had been transfused a total of 4 units of packed red blood cells the last of which was given 06/20/2018. We will continue to monitor hemoglobin and hematocrit. 2. Fever, likely reactive to hematoma. Blood cultures have been negative. Urinalysis has been negative. Patient is currently asymptomatic. 3. Acute kidney injury, likely due to acute blood loss anemia. Nephrology is on consult. Currently stable. Patient urinating without difficulty. 4. History of liver thrombus. Unknown if arterial or venous. Case discussed with vascular surgery and is no indication for IVC filter. Anticoagulation is curre ntly been restarted. 5. Acute blood loss anemia. Monitor hemoglobin and hematocrit. Transfuse as nee ded secondary to hematoma. 6. History of chronic obstructive pulmonary disease. Patient does not have any symptoms right now. Continue home medication. 7. Congestive heart failure. Patient currently euvolemic. We will monitor closely. Lasix and TESSA inhibitor on hold given acute kidney injury. 8. Hypertension. Lisinopril on hold. Monitor blood pressure. 9. BPH. Continue current medication. 10. Constipation. Bowel regimen has been given. DVT prophy: Lovenox subcutaneous twice a day Dispo: Pending clinical improvement VS,Fishbone, I+O VS, Fishbone, I+O Laboratory Tests 06/26/18 06:22 Red Blood Count 3.53 L, Mean Corpuscular Volume 87.5, Mean Corpuscular Hemoglobin 28.6, Mean Corpuscular Hemoglobin Concent 32.7, Red Cell Distribution Width 15.2 H, Calcium Level 8.6 L, Aspartate Amino Transf (AST/SGOT) 50 H, Alanine Aminotransferase (ALT/SGPT) 48, Alkaline Phosphatase 140 H, Total Bilirubin 1.3 H, Total Protein 7.1, Albumin 3.0 L Vital Signs Date Time Temp Pulse Resp B/P (MAP) Pulse Ox O2 Delivery O2 Flow Rate FiO2 06/26/18 08:22 76 06/26/18 06:00 99.4 20 161/82 (108) 98 06/22/18 16:00 l I&O- Last 24 Hours up to 6 AM 06/26/18 06:00 Intake Total 2190 ml Output Total 0 ml Balance 2190 ml GME ATTESTATION GME ATTESTATION My faculty preceptor for this patient encounter was physically present during the encounter and was fully available. All aspects of the patient interview, examination, medical decision making process, and medical care plan development were reviewed and approved by the faculty preceptor. The faculty preceptor is aware and concurs with the plan as stated in the body of this note and will attest to such by his/her cosignature. ATTENDING NOTE I have both independently examined this patient as well as reviewed the note I have discussed in detail the findings and plan of treatment as documented in the note. I will continue to follow the patient and offer further guidance to the patients care as necessary during this hospital stay. SHAZIA Rausch MD, DO Jun 26, 2018 12:04 WOOD HARTMAN MD Jun 26, 2018 15:34
[2018-06-26 14:00] VITALS: BP 131/83
[2018-06-26 21:00] VITALS: BP 156/76
[2018-06-27 02:00] VITALS: BP 144/79
[2018-06-27] MEDS: SLF 3 ML SYR IV SCH ×3 (05:56→22:00)
[2018-06-27 06:00] VITALS: BP 138/78
[2018-06-27 06:01] LABS: HEMATOCRIT 30.9 % (42.0-52.0); MEAN CORPUSCULAR HEMOGLOBIN 28.7 pg (27.0-33.0); MEAN CORPUSCULAR HGB CONC 32.4 g/dl (32.0-36.5); MEAN CORPUSCULAR VOLUME 88.5 fl (80.0-96.0); PLATELET COUNT, AUTOMATED 304 10^3/uL (150-450); RED BLOOD COUNT 3.49 10^6/uL (4.30-6.10); WHITE BLOOD COUNT 9.8 10^3/uL (4.0-10.0)
[2018-06-27 06:26] LABS: ALBUMIN 2.9 GM/DL (3.2-5.2); ALT/SGPT 53 U/L (12-78); BILIRUBIN,TOTAL 1.2 MG/DL (0.2-1.0); BLOOD UREA NITROGEN 30 MG/DL (7-18); CALCIUM LEVEL 8.4 MG/DL (8.8-10.2); CARBON DIOXIDE LEVEL 22 MEQ/L (21-32); CHLORIDE LEVEL 109 MEQ/L (98-107); GLOMERULAR FILTRATION RATE > 60.0 (>42); GLUCOSE, FASTING 103 MG/DL (70-100); MAGNESIUM LEVEL 1.9 MG/DL (1.8-2.4); POTASSIUM SERUM 4.3 MEQ/L (3.5-5.1); SODIUM LEVEL 137 MEQ/L (136-145)
[2018-06-27] MEDS: ACETAMINOPHEN TAB 650MG DOSE (2X325MG) PO PRN ×2 (06:47→23:21)
[2018-06-27] MEDS: ENOXAPARIN 60 MG/0.6 ML SYR (J1650) SC SCH ×2 (08:02→21:29)
[2018-06-27] MEDS: MIRALAX *UNIT DOSE* 17GM PACKET PO SCH (08:03)
[2018-06-27] MEDS: TAMSULOSIN 0.4 MG CAP PO SCH (08:03)
[2018-06-27] MEDS: SENOKOT S TAB PO SCH (08:03)
[2018-06-27] MEDS: DIGOXIN 0.125 MG TAB PO SCH (08:04)
[2018-06-27] MEDS: TIOTROPIUM INHALER/CAPSULE (SPIRIVA) INH SCH (10:09)
[2018-06-27] MEDS: SYMBICORT 160/4.5MCG INHALER 6GM INH SCH ×2 (10:09→19:03)
[2018-06-27] MEDS ORDERED: LR 1,000 ML IV ONE (11:15)
[2018-06-27] MEDS: READI-CAT 2 PO SCH ×4 (11:30→13:51)
[2018-06-27 14:00] VITALS: BP 167/79
--- NOTE | 2018-06-27 14:08 | IPNPDOC ---
Text Note Date of Service The patient was seen on 06/27/18. NOTE Patient seen and examined, continued to have abdominal pain that is unchanged but denies any chest pain, pressure, discomfort. Febrile overnight. reported loose stool. no respiratory symptoms reported. PHYSICAL EXAMINATION: GENERAL: Patient comfortable, ambulating, in no acute distress. HEENT: Normocephalic, atraumatic. PULMONARY: Bilaterally clear. CARDIAC: Regular, S1, S2. ABDOMEN: Large, hard tender mass overlying right lower quadrant of the patient's abdomen, tender to palpation. improved. Positive bowel sounds. EXTREMITIES: No clubbing, cyanosis, or edema. ASSESSMENT AND PLAN: This is a 73-year-old male patient with underlying medical history of atrial fibrillation, lung cancer with wedge resection, that has relapsed and has metastasis to the liver, hypertension, chronic obstructive pulmonary disease (COPD), questionable liver thrombus, on injected Fragmin, presented with abdominal wall pain, found to have a large abdominal wall hematoma. PROBLEMS: 1. Large abdominal wall hematoma with small amount of intraperitoneal hemorrhage. Hemoglobin and hematocrit has been stable. Transfused a total of four units of packed red blood cells. Anticoagulation has been restarted. Will continue to monitor hemoglobin and hematocrit. Case was discussed with general surgery. 2. Fever, likely reactive to the hematoma. Blood culture has been sent. Urinalysis (UA) neg. Will monitor closely. Patient asymptomatic. possible GI source given abd pain and diarrhea. poonam, CT abd dc bowel meds, will get stool study if diarrhea persisted. 3. Acute kidney injury, likely due to acute blood loss anemia. Nephrology consulted. Currently stable. Patient at one point had a Mccord catheter, currently off Mccord. 4. History of liver thrombus. Unknown arterial versus venous. Case was discussed with vascular surgery, no indication for surgery, currently has restarted anticoagulation. 5. Acute blood loss anemia. 2/2 to abd hematoma. Monitor hemoglobin and h ematocrit. Transfuse as needed 6. History of chronic obstructive pulmonary disease. Currently not having any wheeze. Continue home medication. 7. Congestive heart failure (CHF). Patient currently euvolemic. Monitor closely. Lasix and angiotensin-converting enzyme (TESSA) inhibitor on hold given acute kidney injury. 8. Hypertension. Lisinopril on hold. Monitor blood pressure. 9. BPH. Continue current medication. 10. Constipation. Bowel regimen given. 11. Deep vein thrombosis (DVT) prophylaxis. On Lovenox subcu twice a day. DISPOSITION: Will monitor hemoglobin and hematocrit and patient's hematoma. Passed physical therapy. workup for fever. VS,Fishbone, I+O VS, Fishbone, I+O Laboratory Tests 06/27/18 05:41 Red Blood Count 3.49 L, Mean Corpuscular Volume 88.5, Mean Corpuscular Hemoglobin 28.7, Mean Corpuscular Hemoglobin Concent 32.4, Red Cell Distribution Width 15.2 H, Calcium Level 8.4 L, Aspartate Amino Transf (AST/SGOT) 59 H, Alanine Aminotransferase (ALT/SGPT) 53, Alkaline Phosphatase 146 H, Total Bilirubin 1.2 H, Total Protein 7.0, Albumin 2.9 L Vital Signs Date Time Temp Pulse Resp B/P (MAP) Pulse Ox O2 Delivery O2 Flow Rate FiO2 06/27/18 08:04 74 06/27/18 06:00 100.3 18 138/78 (98) 96 06/22/18 16:00 I&O- Last 24 Hours up to 6 AM 06/27/18 06:00 Intake Total 1080 ml Balance 1080 ml WOOD HARTMAN MD Jun 27, 2018 14:08
[2018-06-27] MEDS: metroNIDAZOLE 500 MG in APPROPRIATE DILUENT 1 EA IV SCH ×2 (15:35→21:27)
[2018-06-27] MEDS: CIPROFLOXACIN 400 MG in APPROPRIATE DILUENT 1 EA IV SCH (17:08)
[2018-06-27 22:00] VITALS: BP 137/67
[2018-06-28] MEDS: CIPROFLOXACIN 400 MG in APPROPRIATE DILUENT 1 EA IV SCH ×2 (03:03→16:47)
--- NOTE | 2018-06-28 05:02 | REP ---
Clinical: Diarrhea. Technique: Axial noncontrast images from the lung bases to the pubic symphysis with coronal and sagittal re-formations. Comparison: 06/19/2018. Findings: The large right sided multilobulated hematoma involving the rectus muscle with adjacent pockets of hemorrhage along the right flank and right colic gutter as well as fluid insinuating between in the right transversalis musculature is again identified but shows some improvement. Specifically there is less fluid insinuating between the oblique musculature and transversalis muscles of the right lateral abdominal wall along with essential resolution of the layering hemorrhagic fluid in the deep pelvis. The current examination suggests a long segment of small bowel intussusception possibly involving ileum extending from the upper abdomen towards the right lower quadrant (sees images [id number]). This may reflect a transient process as there is no evidence for associated bowel obstruction. Suggestions for upper abdominal adenopathy is limited due to the lack of contrast. There is no evidence for free air. Liver, spleen, pancreas, collapsed gallbladder, bilateral adrenal glands are essentially normal/stable. The kidneys demonstrate stable complex bilateral lesions which may represent complex cysts as well as nonobstructing calculi as there is no evidence for hydronephrosis or significant perinephric stranding. There is however a large 9 mm calculus at the region of the right ureterovesical junction (images 104-106) which is concerning for a chronic partially obstructing UVJ stone. Pelvis demonstrates partially collapsed bladder with suggestions for bladder wall thickening and moderately prominent prostate gland with parenchymal calcifications. Significant atherosclerotic changes of the aorta and vasculature noted without obvious aneurysm. Evidence of prior partial sigmoid resection and anastomoses. Musculoskeletal structures are intact. Lung bases demonstrate chronic emphysematous disease. Impression: 1. Large right-sided multilobulated hematoma along with the associated hemorrhagic fluid shows elements of improvement. 2. There are suggestions for a long segment of presumed ileal intussusception which may reflect a transient process as there is no evidence for associated bowel obstruction. No free air. 3. 9 mm possibly partially obstructing right UVJ stone along with relatively stable chronic-appearing changes to the bilateral kidneys and no associated hydronephrosis or perinephric stranding. 4. Further chronic nonspecific findings as described above. Electronically Signed by Ivan Gann MD 06/28/2018 04:54 A
[2018-06-28 06:00] VITALS: BP 108/64
[2018-06-28] MEDS: SLF 3 ML SYR IV SCH ×3 (06:00→22:00)
[2018-06-28] MEDS: metroNIDAZOLE 500 MG in APPROPRIATE DILUENT 1 EA IV SCH ×2 (06:17→15:10)
[2018-06-28 06:26] LABS: HEMATOCRIT 33.8 % (42.0-52.0); HEMOGLOBIN 10.9 g/dl (13.5-17.5); MEAN CORPUSCULAR HEMOGLOBIN 28.4 pg (27.0-33.0); MEAN CORPUSCULAR HGB CONC 32.2 g/dl (32.0-36.5); PLATELET COUNT, AUTOMATED 359 10^3/uL (150-450); RED BLOOD COUNT 3.84 10^6/uL (4.30-6.10); WHITE BLOOD COUNT 10.9 10^3/uL (4.0-10.0)
[2018-06-28 06:50] LABS: ALT/SGPT 55 U/L (12-78); BILIRUBIN,TOTAL 1.2 MG/DL (0.2-1.0); BLOOD UREA NITROGEN 26 MG/DL (7-18); CALCIUM LEVEL 8.8 MG/DL (8.8-10.2); CARBON DIOXIDE LEVEL 22 MEQ/L (21-32); CHLORIDE LEVEL 109 MEQ/L (98-107); GLOMERULAR FILTRATION RATE > 60.0 (>42); GLUCOSE, FASTING 88 MG/DL (70-100); POTASSIUM SERUM 4.9 MEQ/L (3.5-5.1); SODIUM LEVEL 137 MEQ/L (136-145); TOTAL PROTEIN 7.5 GM/DL (6.4-8.2)
[2018-06-28] MEDS: SYMBICORT 160/4.5MCG INHALER 6GM INH SCH ×2 (07:26→19:45)
[2018-06-28] MEDS: TIOTROPIUM INHALER/CAPSULE (SPIRIVA) INH SCH (07:26)
[2018-06-28] MEDS: DIGOXIN 0.125 MG TAB PO SCH (08:40)
[2018-06-28] MEDS: TAMSULOSIN 0.4 MG CAP PO SCH (08:41)
[2018-06-28] MEDS: ENOXAPARIN 60 MG/0.6 ML SYR (J1650) SC SCH ×2 (08:43→20:17)
[2018-06-28 10:00] VITALS: BP 114/59
--- NOTE | 2018-06-28 12:21 | CR ---
DATE OF CONSULTATION: 06/28/2018 REASON FOR CONSULTATION: Right ureteral calculus. CONCLUSIONS: 1. 9 mm right distal ureteral calculus without dilation of right renal collecting system, probable long standing and currently asymptomatic. 2. History of metastatic lung cancer. 3. Recent development of abdominal wall hematoma secondary to injection of anticoagulant therapy. 4. Atrial fibrillation. 5. Chronic obstructive pulmonary disease (COPD). 6. Congestive heart failure. 7. Hypertension. RECOMMENDATIONS: 1. I discussed the findings on CT scan that demonstrated what appears to be an incidental detection of a large calculus in the right distal ureter that interestingly is not obstructing the right renal collecting system. I reviewed with the patient the options including performing ureteroscopy with laser fragmentation and extraction. At this time, the patient has some other medical issues which are intervening. This can be delayed until the patient's medical status has improved. He states he receives the majority of his medical care at the [facility] and would like to followup at the [facility] for care of his ureteral calculus. DISCUSSION: The patient is a 73-year-old male admitted to the hospital with an abdominal wall hematoma causing pain. He has undergone three CT scans, one on 06/18/2018, one on 06/19/2018 and one on 06/27/2018 which all demonstrate no dilation of either collecting system of the kidneys, but a 9 mm right distal ureteral calculus. The patient does have a history of extracorporal shock wave lithotripsy (ESWL) treatment of a ureteral calculus or renal calculus many years ago. He has no history of gross hematuria. He has had no dysuria. He has no history of urinary tract infections. He has had some fever while he has been in the hospital. Two urinalyses have been negative for evidence of infection. PHYSICAL EXAMINATION: Reveals a pleasant, cooperative male lying in bed in no distress. Back reveals no costovertebral angle (CVA) tenderness. Abdomen is soft and not tender. External genitalia are normal male. CT scan images were reviewed which showed a 9 mm right distal ureteral calculus without any dilation of the right renal collecting system. There is also some prominence of the prostate with a large median lobe protruding at the base of the bladder. Thank you for asking me to see this patient in consultation.
[2018-06-28 13:26] LABS: CLOSTRIDIUM DIFFICILE PCR NEGATIVE (NEGATIVE)
[2018-06-28 14:00] VITALS: BP 153/71
[2018-06-28 18:00] VITALS: BP 154/74
--- NOTE | 2018-06-28 18:12 | IPNPDOC ---
Text Note Date of Service The patient was seen on 06/28/18. NOTE Patient seen and examined, continued to have abdominal pain improved. Denies any chest pain, pressure, discomfort. no respiratory symptoms reported. PHYSICAL EXAMINATION: GENERAL: Patient comfortable, ambulating, in no acute distress. HEENT: Normocephalic, atraumatic. PULMONARY: Bilaterally clear. CARDIAC: Regular, S1, S2. ABDOMEN: Large, hard tender mass overlying right lower quadrant of the patient's abdomen, tender to palpation. improved. Positive bowel sounds. EXTREMITIES: No clubbing, cyanosis, or edema. ASSESSMENT AND PLAN: This is a 73-year-old male patient with underlying medical history of atrial fibrillation, lung cancer with wedge resection, that has relapsed and has metastasis to the liver, hypertension, chronic obstructive pulmonary disease (COPD), questionable liver thrombus, on injected Fragmin, presented with abdominal wall pain, found to have a large abdominal wall hematoma. PROBLEMS: 1. Large abdominal wall hematoma with small amount of intraperitoneal hemorrhage. Hemoglobin and hematocrit has been stable. Transfused a total of four units of packed red blood cells. Anticoagulation has been restarted. Will continue to monitor hemoglobin and hematocrit. Case was discussed with general surgery. 2. Fever, likely reactive to the hematoma. Blood culture has been sent. Urinalysis (UA) neg. Will monitor closely. Patient asymptomatic. CT abd, stool study appreciated. ID consulted 3. possible intussusception, asymptomatic. d/w Dr Medel, f/u outpatient. Upper GI series with small bowel follow through 4. 9MM kidney stone, not obstructing, consulted urology. need outpatient f/u 5. Acute kidney injury, likely due to acute blood loss anemia. Nephrology consulted. Currently stable. Patient at one point had a Mccord catheter, current ly off Mccord. 6. History of liver thrombus. Unknown arterial versus venous. Case was discussed with vascular surgery, no indication for surgery, currently has restarted anticoagulation. 7. Acute blood loss anemia. 2/2 to abd hematoma. Monitor hemoglobin and hematocrit. Transfuse as needed 8. History of chronic obstructive pulmonary disease. Currently not having any wheeze. Continue home medication. 9. Congestive heart failure (CHF). Patient currently euvolemic. Monitor closely. Lasix and angiotensin-converting enzyme (TESSA) inhibitor on hold given acute kidney injury. 10. Hypertension. Lisinopril on hold. Monitor blood pressure. 11. BPH. Continue current medication. 12. Constipation. Bowel regimen given. 13. Deep vein thrombosis (DVT) prophylaxis. On Lovenox subcu twice a day. DISPOSITION: Will monitor hemoglobin and hematocrit and patient's hematoma. Passed physical therapy. DC in 24 hr VS,Fishbone, I+O VS, Fishbone, I+O Laboratory Tests 06/28/18 05:43 Red Blood Count 3.84 L, Mean Corpuscular Volume 88.0, Mean Corpuscular Hemoglobin 28.4, Mean Corpuscular Hemoglobin Concent 32.2, Red Cell Distribution Width 15.1 H, Calcium Level 8.8, Aspartate Amino Transf (AST/SGOT) 63 H, Alanine Aminotransferase (ALT/SGPT) 55, Alkaline Phosphatase 147 H, Total Bilirubin 1.2 H, Total Protein 7.5, Albumin 3.0 L Vital Signs Date Time Temp Pulse Resp B/P (MAP) Pulse Ox O2 Delivery O2 Flow Rate FiO2 06/28/18 14:00 98.4 85 17 153/71 (98) 98 06/22/18 16:00 I&O- Last 24 Hours up to 6 AM 06/28/18 06:00 Intake Total 1020 ml Output Total 0 ml Balance 1020 ml WOOD HARTMAN MD Jun 28, 2018 18:12
[2018-06-28 22:00] VITALS: BP 141/65
[2018-06-29 02:00] VITALS: BP 158/79
[2018-06-29 06:00] VITALS: BP 153/75
[2018-06-29] MEDS: SLF 3 ML SYR IV SCH ×3 (06:00→22:00)
[2018-06-29 06:02] LABS: HEMATOCRIT 29.3 % (42.0-52.0); HEMOGLOBIN 9.5 g/dl (13.5-17.5); MEAN CORPUSCULAR HEMOGLOBIN 28.3 pg (27.0-33.0); MEAN CORPUSCULAR HGB CONC 32.4 g/dl (32.0-36.5); MEAN CORPUSCULAR VOLUME 87.2 fl (80.0-96.0); PLATELET COUNT, AUTOMATED 325 10^3/uL (150-450); RED BLOOD COUNT 3.36 10^6/uL (4.30-6.10); WHITE BLOOD COUNT 9.5 10^3/uL (4.0-10.0)
[2018-06-29 06:22] LABS: ALBUMIN 2.6 GM/DL (3.2-5.2); ALT/SGPT 44 U/L (12-78); BILIRUBIN,TOTAL 0.9 MG/DL (0.2-1.0); BLOOD UREA NITROGEN 24 MG/DL (7-18); C REACTIVE PROTEIN QUANTITATIV 4.89 MG/DL (0.00-0.30); CARBON DIOXIDE LEVEL 22 MEQ/L (21-32); CHLORIDE LEVEL 111 MEQ/L (98-107); GLOMERULAR FILTRATION RATE > 60.0 (>42); GLUCOSE, FASTING 92 MG/DL (70-100); MAGNESIUM LEVEL 1.8 MG/DL (1.8-2.4); POTASSIUM SERUM 4.1 MEQ/L (3.5-5.1); SODIUM LEVEL 138 MEQ/L (136-145); TOTAL PROTEIN 6.4 GM/DL (6.4-8.2)
[2018-06-29] MEDS: TIOTROPIUM INHALER/CAPSULE (SPIRIVA) INH SCH (07:30)
[2018-06-29] MEDS: SYMBICORT 160/4.5MCG INHALER 6GM INH SCH ×2 (07:31→21:05)
--- NOTE | 2018-06-29 07:45 | CR ---
DATE OF CONSULTATION: 06/28/2018 I was asked to consult by Dr. Melendrez for evaluation of fever in a patient who has an intra-abdominal hematoma. HISTORY OF PRESENT ILLNESS: Mr. Osorio is a 73-year-old gentleman who presented to the emergency room on June 18 with complaint of right lower quadrant abdominal pain for 3 days prior to admission. The patient has a history of atrial fibrillation and lung cancer for which he was being treated with blood thinner with dalteparin. The patient previously has been on Eliquis and had bleeding so he was switched to dalteparin. He injected once a day and he stated that about 3 days prior to admission he noticed that he probably injected too deep and caused severe abdominal pain and had a bleed. The patient denied any nausea or vomiting. He had intermittent fevers on admission. No worsening of cough or shortness of breath. The patient describes his pain as ripping his stomach. He has an old history of diverticulitis which was complicated with a hemicolectomy, ostomy and reversal of the ostomy. PAST MEDICAL HISTORY: Significant for atrial fibrillation and lung his cancer diagnosed in 2005 status post wedge resection. He relapsed in 2011 with mets to the liver and he was treated with some embolization. He has history of hypertension and chronic obstructive pulmonary disease (COPD). SURGICAL HISTORY: Wedge was resection, hemicolectomy with colectomy and reversal of colectomy. ALLERGIES: - CONTRAST MEDIA - PENICILLIN FAMILY HISTORY: Non revealing. MEDICATIONS: - Lovenox 50 mg subcu every 12 hours - Benadryl 25 mg IV every 6 hours as needed - digoxin 0.125 mg daily - Flomax 0.4 mg daily - Spiriva one inhalation daily - budesonide formoterol 2 puffs inhaled twice a day - albuterol nebs - Colace as needed - Zofran as needed - oxycodone as needed LABORATORY DATA: White count was 15.8 on admission on 06/18/2018 and currently at 10.9, hemoglobin 10.9, hematocrit 33.8, platelets 359. ESR 65. Sodium 137, potassium 4.9, chloride 109, bicarb 22, BUN 26, creatinine 1.2, glucose 88, calcium 8.8, magnesium 2, bilirubin 1.2, AST 63, ALT 55, alkaline phosphatase 147, CRP 6.1, albumin 3. Urinalysis had 2 white cells and 0 red cells. Digoxin level 1.3. Clostridium (C) difficile on 06/28/2018 was negative. Methicillin-resistant Staphylococcus aureus (MRSA) screen on 06/19/2018 was negative. Blood cultures on 06/24/2018 and 06/27/2018, a total of 4 sets, are all negative. IMAGING STUDIES: CT of abdomen and pelvis done on 06/27/2018 shows a large right-sided multilobulated hematoma along with hemorrhagic fluid showing some improvement. There is some suggestion of a possible ileal intussusception, no evidence of bowel obstruction. No free air. There is a 9 mm ureterovesical junction (UVJ) stone. Stable chronic appearing changes. REVIEW OF SYSTEMS: The patient denies any nausea. He has had frequent bowel movements, but C diff was negative. He has no upper or lower extremity weakness. No headache or chest pain. He has a mild cough and shortness of breath which is unchanged. PHYSICAL EXAMINATION: He is a frail looking gentleman in no acute distress. T-max was 100.3 yesterday. Heart: Normal S1 and S2 with no murmurs. Lungs: Decreased breath sounds with expiratory wheezes bilaterally. Abdomen: Soft. Tender in the right lower quadrant. Very hard, indurated mass where the hematoma is described. Back: No costovertebral angle (CVA) or lumbosacral tenderness. Extremities: No clubbing, cyanosis or edema. No calf tenderness. Very dry feet bilaterally with onychomycosis. Oropharynx clear with no lesion. No thrush. IMPRESSION: This is a 73-year-old gentleman with lung cancer with mets to the liver who was admitted with a large right lower quadrant hematoma. He has had intermittent fever since admission, initially every 48 hours. He had a temperature of 100 to 100.4. He spiked on 06/24/2018 to 102.4 and then he has had low grade fever since then. There has been no evident source of infection other than the fact that the hematoma could cause fever. Also, if he has liver metastasis from his lung cancer that could be another source of fever. He has not had a chest x-ray on admission and I would recommend obtaining that. His urinalysis is negative and blood cultures are negative. The patient does not seem to have any infection from my standpoint. PLAN: Discontinue IV ciprofloxacin and metronidazole. There does not seem to be any evidence of diverticulitis. Will order chest x-ray PA and lateral for the morning. The case has been discussed with Dr. Melendrez already. He has discontinued his IV antibiotics.
--- NOTE | 2018-06-29 07:53 | IPNPDOC ---
Subjective Date Seen The patient was seen on 06/29/18. Subjective Chief Complaint/HPI I reviewed the findings on CT imaging of non obstructing and asymptomatic right distal ureteral calculus without infection. In this clinical setting I would recommend deferral of surgery until he has recovered from this current problem of abdominal hematoma. The patient is followed at the [facility] for most of his care and prefers to have this carried out there. General: Reports: Normal Appetite; Denies: Chills, Night Sweats, Fatigue, Malaise Constitutional: Denies: Chills, Fever, Night Sweats Eyes: Denies: Pain, Vision change ENT: Denies: Head Aches, Ear Pain, Dysphagia Skin: Denies: Rash, Lesions, Breakdown Pulmonary: Denies: Dyspnea, Cough Cardiovascular: Denies: Chest Pain, Palpitations, Orthopnea, Paroxysmal Noc. Dyspnea, Lt Headedness Gastrointestinal: Denies: Nausea, Vomiting, Abdominal Pain, Diarrhea, Constipation Genitourinary: Denies: Dysuria, Frequency, Incontinence, Retention Hematologic: Denies: Bruising, Bleeding Excessively Musculoskeletal: Denies: Neck Pain, Back Pain, Joint Pain, Muscle Pain, Spasms Neurological: Denies: Weakness, Numbness, Change in speech, Confusion Psych: Reports: Mood Normal; Denies: Depression, Memory Issues Objective Physical Examination General Exam: Positive: Alert, Cooperative, No Acute Distress Assessment /Plan Assessment 9mm non obstructing right distal ureteral calculus, asymptomatic Plan/VTE VTE Prophylaxis Ordered?: No Disposition Patient will follow up at the [facility] after discharge for management of his right ureteral calculus VS, I&O, 24H, Fishbone Vital Signs/I&O Vital Signs Date Time Temp Pulse Resp B/P (MAP) Pulse Ox O2 Delivery O2 Flow Rate FiO2 06/29/18 06:00 98.1 86 18 153/75 (101) 98 I&O- Last 24 Hours up to 6 AM 06/29/18 06:00 Intake Total 1030 ml Output Total 950 ml Balance 80 ml Laboratory Data 24H LABS Laboratory Tests 2 06/28/18 12:09: Stool Clostridium difficile Result NEGATIVE, Clostridium difficile (PCR)(LAB) NEGATIVE 06/29/18 05:36: Nucleated Red Blood Cells % (auto) 0.0, Anion Gap 5L, Glomerular Filtration Rate > 60.0, Blood Urea Nitrogen 24H, Creatinine 1.10, Sodium Level 138, Potassium Level 4.1, Chloride Level 111H, Carbon Dioxide Level 22, Calcium Level 8.0L, Aspartate Amino Transf (AST/SGOT) 55H, Alanine Aminotransferase (ALT/SGPT) 44, Alkaline Phosphatase 120H, Total Bilirubin 0.9, Total Protein 6.4, Albumin 2.6L, Magnesium Level 1.8, C-Reactive Protein, Quantitative 4.89H, Albumin/Globulin Ratio 0.68L CBC/BMP Laboratory Tests 06/29/18 05:36 Red Blood Count 3.36 L, Mean Corpuscular Volume 87.2, Mean Corpuscular Hemoglobin 28.3, Mean Corpuscular Hemoglobin Concent 32.4, Red Cell Distribution Width 15.2 H, Calcium Level 8.0 L, Aspartate Amino Transf (AST/SGOT) 55 H, Alanine Aminotransferase (ALT/SGPT) 44, Alkaline Phosphatase 120 H, Total Bilirubin 0.9, Total Protein 6.4, Albumin 2.6 L Microbiology Microbiology 06/27/18 Blood Culture - Preliminary, Resulted No growth after 24 hours . All specim... 06/27/18 Blood Culture - Preliminary, Resulted No growth after 24 hours . All specim... 06/24/18 Blood Culture - Preliminary, Resulted No Growth after 72 hours. All specime... 06/24/18 Blood Culture - Preliminary, Resulted No Growth after 72 hours. All specime... 06/19/18 MRSA Screen - Final, Complete ANDI PARR MD Jun 29, 2018 07:53
[2018-06-29] MEDS ORDERED: E-Z-GAS II EFFERVESCENT PACKET (SODIUM BICARB./CITRIC ACID/SIMETHICONE) As Ordered ONE (09:51)
[2018-06-29] MEDS ORDERED: E-Z-PAQUE 96% w/w SUSP 176GM BTL As Ordered ONE (09:51)
[2018-06-29] MEDS ORDERED: E-Z-HD 98% w/w 340GM SUSP BTL As Ordered ONE (09:51)
[2018-06-29] MEDS: ENOXAPARIN 60 MG/0.6 ML SYR (J1650) SC SCH ×2 (11:11→20:13)
[2018-06-29] MEDS: TAMSULOSIN 0.4 MG CAP PO SCH (11:12)
[2018-06-29] MEDS: DIGOXIN 0.125 MG TAB PO SCH (11:12)
--- NOTE | 2018-06-29 11:15 | REP ---
Chest x-ray: Two views. History: Fever. History of lung carcinoma. Comparison chest x-ray: May 14, 2017. Findings: A left-sided [id number] is again noted with its tip in the expected location superior vena cava. A right thoracotomy has been performed with sutures and clips and some volume loss in the right hemithorax. There is stable fullness in the right hilar region. There is slight blunting of the right lateral pleural angle. These findings are unchanged. No new infiltrate is seen. No bony destructive lesion is seen. Impression: No new infiltrate noted. Post-treatment changes in the right chest. Stable fullness right hilar region. Electronically Signed by Juan Jose Briggs MD 06/29/2018 07:42 P
[2018-06-29 14:00] VITALS: BP_SYST 136; BP_SYST 144; BP_DIAS 65; BP_DIAS 86
[2018-06-29 18:00] VITALS: BP 142/85
--- NOTE | 2018-06-29 18:46 | IPNPDOC ---
Text Note Date of Service The patient was seen on 06/29/18. NOTE Patient seen and examined, continued to have abdominal pain improved. Denies any chest pain, pressure, discomfort. no respiratory symptoms reported. PHYSICAL EXAMINATION: GENERAL: Patient comfortable, ambulating, in no acute distress. HEENT: Normocephalic, atraumatic. PULMONARY: Bilaterally clear. CARDIAC: Regular, S1, S2. ABDOMEN: Large, hard tender mass overlying right lower quadrant of the patient's abdomen, tender to palpation. improved. Positive bowel sounds. EXTREMITIES: No clubbing, cyanosis, or edema. ASSESSMENT AND PLAN: This is a 73-year-old male patient with underlying medical history of atrial fibrillation, lung cancer with wedge resection, that has relapsed and has metastasis to the liver, hypertension, chronic obstructive pulmonary disease (COPD), questionable liver thrombus, on injected Fragmin, presented with abdominal wall pain, found to have a large abdominal wall hematoma. PROBLEMS: 1. Large abdominal wall hematoma with small amount of intraperitoneal hemorrhage. Hemoglobin and hematocrit has been stable. Transfused a total of four units of packed red blood cells. Anticoagulation has been restarted. Will continue to monitor hemoglobin and hematocrit. Case was discussed with general surgery. 2. Fever, likely reactive to the hematoma. Blood culture has been sent. Urinalysis (UA) neg. Will monitor closely. Patient asymptomatic. CT abd, stool study appreciated. ID consulted 3. possible intussusception, asymptomatic. d/w Dr Medel, f/u outpatient. Upper GI series with small bowel follow through 4. 9MM kidney stone, not obstructing, consulted urology. need outpatient f/u 5. Acute kidney injury, likely due to acute blood loss anemia. Nephrology consulted. Currently stable. Patient at one point had a Mccord catheter, current ly off Mccord. 6. History of liver thrombus. Unknown arterial versus venous. Case was discussed with vascular surgery, no indication for surgery, currently has restarted anticoagulation. 7. Acute blood loss anemia. 2/2 to abd hematoma. Monitor hemoglobin and hematocrit. Transfuse as needed 8. History of chronic obstructive pulmonary disease. Currently not having any wheeze. Continue home medication. 9. Congestive heart failure (CHF). Patient currently euvolemic. Monitor closely. angiotensin-converting enzyme (TESSA) inhibitor restarted. Lasix on hold 2/2 poor po intake 10. Hypertension. Lisinopril restarted. Monitor blood pressure. 11. BPH. Continue current medication. 12. Constipation. Bowel regimen given. 13. Deep vein thrombosis (DVT) prophylaxis. On Lovenox subcu twice a day. DISPOSITION: Will monitor hemoglobin and hematocrit and patient's hematoma. Passed physical therapy. DC in 24 hr VS,Fishbone, I+O VS, Fishbone, I+O Laboratory Tests 06/29/18 05:36 Red Blood Count 3.36 L, Mean Corpuscular Volume 87.2, Mean Corpuscular Hemoglobin 28.3, Mean Corpuscular Hemoglobin Concent 32.4, Red Cell Distribution Width 15.2 H, Calcium Level 8.0 L, Aspartate Amino Transf (AST/SGOT) 55 H, Alanine Aminotransferase (ALT/SGPT) 44, Alkaline Phosphatase 120 H, Total Bilirubin 0.9, Total Protein 6.4, Albumin 2.6 L Vital Signs Date Time Temp Pulse Resp B/P (MAP) Pulse Ox O2 Delivery O2 Flow Rate FiO2 06/29/18 18:00 99.6 92 18 142/85 (104) 94 I&O- Last 24 Hours up to 6 AM 06/29/18 06:00 Intake Total 1030 ml Output Total 950 ml Balance 80 ml WOOD HARTMAN MD Jun 29, 2018 18:46
--- NOTE | 2018-06-29 19:42 | REP ---
UPPER GI AIR CONTRAST AND SMALL BOWEL FOLLOW THROUGH The procedure was performed under the direct supervision of Dr. Briggs. The images were reviewed with Dr. Briggs The instructor decorating film shows no organomegaly or pathological masses. The intestinal gas pattern is non-specific. Liquid barium and gas producing crystals were given in the erect position as well as liquid barium in the prone oblique position in order to perform a double contrast upper GI examination. Additionally liquid barium was given at the end of the examination in order to perform a small bowel follow through. The oral and pharyngeal stages of deglutition are unremarkable. Esophageal transport there are tertiary waves demonstrated. There is no esophagitis, stricture, mucosal ring or hiatal hernia. There is gastroesophageal reflux demonstrated to below the level of the yasemin. The stomach brannon are normally outlined . The rugal folds are smooth and regular. There is no gastritis neoplasm or ulcer disease. In the duodenum there are thickened folds which may represent duodenitis. There is no derik ulcer identified. The visualized portion of the proximal small bowel appears normal in course and caliber. The barium column was followed through the small bowel to the level of the terminal ileum. Small bowel transit time is approximately 20 minutes . During fluoroscopy gentle palpation shows all loops are freely movable and pliable. There are no fixed or angulated loops. The small bowel mucosal pattern is normal in course and caliber. There is no transition to suggest a partial small-bowel obstruction. Spot filming of the terminal ileum shows it to be unremarkable. Impression: 1. Tertiary waves. 2. There are thickened folds in the duodenum which may represent duodenitis. There is no derik ulcer identified. Three there is gastroesophageal reflux demonstrated to below the level of the yasemin. 2.4 minutes of fluoro time was utilized for this procedure. Reviewed by FRANSISCA Samuel 06/29/2018 03:52 P Electronically Signed by Juan Jose Briggs MD 06/29/2018 07:33 P
[2018-06-29 22:00] VITALS: BP 133/63
[2018-06-30 02:00] VITALS: BP 123/72
[2018-06-30 05:52] LABS: HEMATOCRIT 30.8 % (42.0-52.0); HEMOGLOBIN 9.9 g/dl (13.5-17.5); MEAN CORPUSCULAR HEMOGLOBIN 28.4 pg (27.0-33.0); MEAN CORPUSCULAR HGB CONC 32.1 g/dl (32.0-36.5); MEAN CORPUSCULAR VOLUME 88.5 fl (80.0-96.0); PLATELET COUNT, AUTOMATED 337 10^3/uL (150-450); RED BLOOD COUNT 3.48 10^6/uL (4.30-6.10); WHITE BLOOD COUNT 9.5 10^3/uL (4.0-10.0)
[2018-06-30 06:00] VITALS: BP 155/81
[2018-06-30] MEDS: SLF 3 ML SYR IV SCH (06:00)
[2018-06-30 06:23] LABS: ALBUMIN 2.6 GM/DL (3.2-5.2); ALT/SGPT 43 U/L (12-78); BILIRUBIN,TOTAL 0.8 MG/DL (0.2-1.0); BLOOD UREA NITROGEN 24 MG/DL (7-18); C REACTIVE PROTEIN QUANTITATIV 4.36 MG/DL (0.00-0.30); CALCIUM LEVEL 8.4 MG/DL (8.8-10.2); CARBON DIOXIDE LEVEL 23 MEQ/L (21-32); CHLORIDE LEVEL 109 MEQ/L (98-107); CREATININE FOR GFR 1.09 MG/DL (0.70-1.30); GLOMERULAR FILTRATION RATE > 60.0 (>42); GLUCOSE, FASTING 90 MG/DL (70-100); POTASSIUM SERUM 4.2 MEQ/L (3.5-5.1); SODIUM LEVEL 138 MEQ/L (136-145); TOTAL PROTEIN 6.7 GM/DL (6.4-8.2)
[2018-06-30] MEDS: DIGOXIN 0.125 MG TAB PO SCH (08:42)
[2018-06-30] MEDS: TAMSULOSIN 0.4 MG CAP PO SCH (08:43)
[2018-06-30] MEDS: ENOXAPARIN 60 MG/0.6 ML SYR (J1650) SC SCH (08:43)
[2018-06-30] MEDS ORDERED: LISINOPRIL 10 MG TAB PO SCH (09:00)
[2018-06-30] MEDS: SYMBICORT 160/4.5MCG INHALER 6GM INH SCH (09:45)
[2018-06-30] MEDS: TIOTROPIUM INHALER/CAPSULE (SPIRIVA) INH SCH (09:45)
[2018-06-30 10:00] VITALS: BP 144/82
[2018-06-30] MEDS ORDERED: FLOM0.4C39 PO (12:38)
[2018-06-30 14:00] VITALS: BP 135/75
--- NOTE | 2018-06-30 18:05 | DSES ---
DATE OF ADMISSION: 06/18/2018 DATE OF DISCHARGE: 06/30/2018 GENERAL SURGEON: Dr. Medel. INFECTIOUS DISEASE: Dr. Monica Price. UROLOGIST: Dr. Dubois. PARK SERVICES SPECIALIST: Dr. Jose Barber. VASCULAR SURGERY: Dr. Todd Wilcox. PRIMARY CARE PROVIDER: Katie Parikh. FINAL DIAGNOSES: 1. Large abdominal wall hematoma with small amount of intraperitoneal hemorrhage. 2. Acute blood loss anemia. 3. Fever, likely reactive to hematoma. 4. Rule out introsusception. 5. Nephrolithiasis 9 mm. 6. Acute kidney injury. 7. History of liver thrombus. 8. History of chronic obstructive pulmonary disease (COPD). 9. History of congestive heart failure. 10. Hypertension. 11. Benign prostatic hypertrophy (BPH). 12. Constipation. HISTORY OF PRESENT ILLNESS: This is a 73-year-old male patient with underlying medical history of atrial fibrillation, lung cancer with wedge resection, has relapsed and has metastasized to the liver, liver thrombus, hypertension, chronic obstructive pulmonary disease (COPD), presented to the emergency room with abdominal pain. Patient says that the abdominal pain has been going on for about three days. Patient has Fragmin for anticoagulation for atrial fibrillation, as well as for liver thrombus. Patient says that after he was started on Eliquis for atrial fibrillation, he had a blood clot and was subsequently started on Fragmin. Patient says that he injects Fragmin once a day on alternating sides and believes that three days ago, possibly he hit an artery because he began to have swelling at the lower right abdomen. Since that time, patient has reported poor oral intake because of pain, with a growing hematoma. Denies any nausea or vomiting. HOSPITAL COURSE: Patient made it to the hospital. General surgery, Dr. Medel, and vascular surgery, Dr. Wilcox, is on consult. Patient's hemoglobin and hematocrit (H and H) was monitored status post 4 units packed red blood cells (PRBC) for transfusion. Fragmin was initially on hold. Nephrology was also consulted, given acute kidney injury. Intravenous (IV) fluids and blood transfusion was provided. Mccord catheter was also placed. Patient's kidney function improved with treatment. Decision was made to restart patient's anticoagulation. Patient's hospital course was also complicated with intermittent fevers. Subsequently, infectious disease was consulted. Culture has been negative. Antibiotics were discontinued. Currently, patient feels comfortable. Passed physical therapy with stable hemoglobin and hematocrit (H and H), ready to be discharged with further followup as outpatient. As part of the fever workup, patient's abdomen was scanned, showing evidence of 9 mm nephrolithiasis. Urology was consulted, recommended outpatient followup after acute treatment. Patient is currently tolerating oral, asymptomatic, able to ambulate, passed physical therapy, ready to be discharged for further care. PHYSICAL EXAMINATION: VITAL SIGNS: Temperature 98, pulse 86, respirations 17, blood pressure 135/75, pulse oximetry 98% on room air. GENERAL: Patient alert, comfortable. HEENT: Normocephalic, atraumatic. PULMONARY: Bilateral clear. CARDIAC: Regular. S1, S2. ABDOMEN: Large hematoma right lower quadrant. Minimal tenderness to palpation. Positive bowel sounds. EXTREMITIES: No clubbing, cyanosis or edema. LABORATORY DATA: WBC 9.5, hemoglobin and hematocrit (H and H) 9.9 and 30.8, platelets 337. Chemistry: Sodium 138, potassium 4.2, chloride 109, bicarbonate 23, BUN 24, creatinine 1.09. DISCHARGE MEDICATIONS: - Flomax 0.4 mg by mouth daily - Symbicort 160/4.5 mcg inhalation twice a day - Fragmin 750 units subcutaneously daily - digoxin 125 mcg by mouth daily - lisinopril 10 mg by mouth daily - Lasix temporarily on hold DISCHARGE INSTRUCTIONS: Please see primary care provider at [facility] ([place]) in one week. Check complete blood count (CBC) with primary care provider. Please urologist at [place] in two weeks for 9 mm kidney stone. Fall precautions. No heavy lifting. Return to the hospital if symptoms worsen.
== END 2018-06-30 16:42 | disposition home or self-care (01) | DRG 813 ==
LOC: M ED 12:14 → M ED INP 18:23 → M PCU 20:15 → M MSPAV 06-23 20:48
PROVIDERS: ADMIT Hospitalist; ATTEND Hospitalist
PROC: 30233N1 Transfusion of Nonautologous Red Blood Cells into Peripheral Vein, Percutaneous Approach (ICD-10-PCS; principal; 2018-06-19)
DX: D68.318 Other hemorrhagic disorder due to intrinsic circulating anticoagulants, antibodies, or inhibitors (principal); I82.0 Budd-Chiari syndrome; K66.1 Hemoperitoneum; D62 Acute posthemorrhagic anemia; I50.22 Chronic systolic (congestive) heart failure; N17.9 Acute kidney failure, unspecified; C34.90 Malignant neoplasm of unspecified part of unspecified bronchus or lung; C78.7 Secondary malignant neoplasm of liver and intrahepatic bile duct; K56.1 Intussusception; N20.1 Calculus of ureter; E87.1 Hypo-osmolality and hyponatremia; T80.89XA Other complications following infusion, transfusion and therapeutic injection, initial encounter; J44.9 Chronic obstructive pulmonary disease, unspecified; I48.91 Unspecified atrial fibrillation; N40.0 Benign prostatic hyperplasia without lower urinary tract symptoms; Z79.899 Other long term (current) drug therapy; R50.9 Fever, unspecified; K59.00 Constipation, unspecified; Z88.0 Allergy status to penicillin; Z91.041 Radiographic dye allergy status; Z87.891 Personal history of nicotine dependence; E86.0 Dehydration; M79.81 Nontraumatic hematoma of soft tissue; E87.5 Hyperkalemia; Y84.8 Other medical procedures as the cause of abnormal reaction of the patient, or of later complication, without mention of misadventure at the time of the procedure

== ENCOUNTER → 2019-09-03 | Outpatient (CLI) | payer MEDICARE ==
[~2019-09-03] MED LIST changes: +DIGO0.123 PO; +FLOM0.4C39 PO; +LASI40TA9 PO; +LISI10TA4 PO; +[UNRECOGNIZED DRUG - CODE] SC
== END ==
LOC: M LABSMTC 10:10
PROVIDERS: ATTEND Family Medicine
DX: Z11.59 Encounter for screening for other viral diseases (principal)

== ENCOUNTER 2020-07-09 12:21 | Emergency (ER) | payer MEDICARE ==
[~2020-07-09] VITALS: Ht 170.2 cm; Wt 55.7 kg
[~2020-07-09 12:21] MED LIST changes: +LISI10TA22 PO; -LISI10TA4 PO; +PANT40TA29 PO; -PANT40TA3 PO
[2020-07-09] MEDS ORDERED: METO1TAB33 PO (12:44)
[2020-07-09] MEDS ORDERED: ALFU10TA3 PO (12:44)
[2020-07-09] MEDS ORDERED: ELIQ5TAB PO (12:44)
--- NOTE | 2020-07-09 13:02 | REP ---
INDICATION: DYSPNEA/COUGH COMPARISON: 06/29/2018 TECHNIQUE: Portable AP view of the chest FINDINGS: Diffuse bilateral chronic changes are appreciated along with asymmetric right sided pleuroparenchymal changes which may be related to known malignancy and prior surgical intervention. Current examination demonstrates new areas of opacity involving the right lower lung zone and increased opacity in the right perihilar region. No pneumothorax. IMPRESSION: Known malignancy with chronic changes. Superimposed acute on chronic right-sided opacities and possible small right pleural effusion cannot be excluded. <Electronically signed by Ivan Gann > 07/09/20 [id number]
[2020-07-09 13:04] LABS: VENOUS BASE EXCESS -2.1 (-2.0-2.0); VENOUS HCO3 23.6 MEQ/L (23.0-27.0); VENOUS O2 SATURATION 32.5 % (60.0-80.0); VENOUS PARTIAL PRESSURE CO2 44.1 mmHg (38.0-50.0); VENOUS PARTIAL PRESSURE O2 22.5 mmHg (30.0-50.0); VENOUS PH 7.346 UNITS (7.330-7.430); VENOUS STANDARD HCO3 21.4 MEQ/L; VENOUS TOTAL CO2 24.9 MEQ/L (24.0-28.0)
[2020-07-09 13:21] LABS: BASO % 0.2 % (0.0-1.0); EOS # 0.1 10^3/uL (0.0-0.5); EOS % 0.6 % (0.0-3.0); HEMATOCRIT 37.6 % (42.0-52.0); HEMOGLOBIN 11.6 g/dl (13.5-17.5); LYMPH # 0.8 10^3/uL (1.5-5.0); LYMPH % 8.3 % (24.0-44.0); MEAN CORPUSCULAR HEMOGLOBIN 28.5 pg (27.0-33.0); MEAN CORPUSCULAR HGB CONC 30.9 g/dl (32.0-36.5); MEAN CORPUSCULAR VOLUME 92.4 fl (80.0-96.0); MONO # 0.7 10^3/uL (0.0-0.8); MONO % 7.5 % (2.0-8.0); NEUTROPHILS # 7.9 10^3/uL (1.5-8.5); NEUTROPHILS % 82.6 % (36.0-66.0); PLATELET COUNT, AUTOMATED 315 10^3/uL (150-450); RED BLOOD COUNT 4.07 10^6/uL (4.30-6.10); WHITE BLOOD COUNT 9.6 10^3/uL (4.0-10.0)
[2020-07-09 13:40] LABS: ALBUMIN 3.2 GM/DL (3.2-5.2); BILIRUBIN,DIRECT 0.2 MG/DL (0.0-0.2); BILIRUBIN,TOTAL 0.4 MG/DL (0.2-1.0); CK-MB VALUE MASS 2.3 NG/ML (<3.6); MB/CK RELATIVE INDEX 4.26 (< OR =4); THYROID STIMULATING HORMONE 2.13 uIU/ML (0.358-3.740); THYROXINE (T4) 8.2 UG/DL (4.5-12.0); TOTAL PROTEIN 8.1 GM/DL (6.4-8.2); TROPONIN I 0.07 NG/ML (< 0.10)
--- NOTE | 2020-07-09 14:30 | REP ---
INDICATION: SOB, right lung CA, CHF vs Pn COMPARISON: 05/21/2017 TECHNIQUE: Axial noncontrast images from the thoracic inlet to the upper abdomen with coronal and sagittal reformations. This CT examination was performed using the following dose reduction techniques: Automated exposure control, adjustment of mA and/or kv according to the patient's size, and use of iterative reconstruction technique. FINDINGS: The lung grant demonstrate diffuse advanced COPD/emphysematous changes. Chronic changes involving the right hemithorax emanating from the right hilum are relatively similar to prior examination although subtle areas of new ill-defined airspace disease are identified along the posterior aspect of the apical right lower lobe which may represent progressive chronic versus acute process. No effusion. No pneumothorax. Tracheobronchial tree is relatively patent. The mediastinum again demonstrates atherosclerotic changes to the thoracic aorta and coronary arteries. Osseous structures demonstrate degenerative changes Tjoyso-F-Zlwg extends into the superior vena cava. IMPRESSION: 1. Advanced COPD/emphysematous disease. 2. Asymmetric changes involving the right hemithorax extending from the right hilum consistent with the given history of neoplasm. Findings appear relatively similar to prior examination although subtle acute process cannot definitively be excluded. <Electronically signed by Ivan Gann > 07/09/20 [id number]
[2020-07-09] MEDS ORDERED: FUROSEMIDE 40MG/4ML VIAL (J1940) IV ONE (14:50)
[2020-07-09] MEDS ORDERED: K-TA1TAB PO (17:40)
[2020-07-09] MEDS ORDERED: LASI20TA3 PO (17:40)
[2020-07-09 18:00] VITALS: BP 187/81
--- NOTE | 2020-07-09 20:05 | ECGEPIP ---
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
== END 2020-07-09 18:20 | disposition home or self-care (01) ==
LOC: M ED 12:21
DX: I50.22 Chronic systolic (congestive) heart failure (principal); C34.90 Malignant neoplasm of unspecified part of unspecified bronchus or lung; C78.7 Secondary malignant neoplasm of liver and intrahepatic bile duct; I48.91 Unspecified atrial fibrillation; Z87.891 Personal history of nicotine dependence; J44.9 Chronic obstructive pulmonary disease, unspecified; Z88.0 Allergy status to penicillin; Z88.8 Allergy status to other drugs, medicaments and biological substances; Z91.041 Radiographic dye allergy status; Z79.01 Long term (current) use of anticoagulants; Z79.899 Other long term (current) drug therapy
CPT/HCPCS: 71045; 71250; 80047; 80076; 82550; 82553; 82803; 83605; 83880; 84436; 84443; 84484; 85025; 87040; 93005; 93041; 94760; 96374; 99285; J1940

== ENCOUNTER 2020-08-08 08:35 | Inpatient (IN) | payer MEDICARE ==
[~2020-08-08] VITALS: Ht 170.2 cm; Wt 52.0 kg
[~2020-08-08 08:35] MED LIST changes: +ALFU10TA3 PO; +K-TA1TAB PO; +LASI20TA3 PO
[2020-08-08] MEDS ORDERED: ISOSORBIDE MON. (IMDUR) 30 MG XR TAB PO SCH (09:00)
[2020-08-08 09:35] LABS: BASO % 0.2 % (0.0-1.0); EOS # 0.1 10^3/uL (0.0-0.5); EOS % 0.9 % (0.0-3.0); HEMOGLOBIN 9.1 g/dl (13.5-17.5); LYMPH # 0.7 10^3/uL (1.5-5.0); MEAN CORPUSCULAR HEMOGLOBIN 28.6 pg (27.0-33.0); MEAN CORPUSCULAR HGB CONC 31.4 g/dl (32.0-36.5); MEAN CORPUSCULAR VOLUME 91.2 fl (80.0-96.0); MONO # 1.2 10^3/uL (0.0-0.8); MONO % 8.6 % (2.0-8.0); NEUTROPHILS # 11.6 10^3/uL (1.5-8.5); NEUTROPHILS % 83.9 % (36.0-66.0); PLATELET COUNT, AUTOMATED 346 10^3/uL (150-450); RED BLOOD COUNT 3.18 10^6/uL (4.30-6.10); VENOUS BASE EXCESS -2.4 (-2.0-2.0); VENOUS HCO3 22.4 MEQ/L (23.0-27.0); VENOUS PARTIAL PRESSURE CO2 38.5 mmHg (38.0-50.0); VENOUS PARTIAL PRESSURE O2 67.7 mmHg (30.0-50.0); VENOUS PH 7.383 UNITS (7.330-7.430); VENOUS STANDARD HCO3 22.4 MEQ/L; VENOUS TOTAL CO2 23.6 MEQ/L (24.0-28.0); WHITE BLOOD COUNT 13.8 10^3/uL (4.0-10.0)
[2020-08-08 10:04] LABS: ALBUMIN 2.3 GM/DL (3.2-5.2); ALT/SGPT 111 U/L (12-78); BILIRUBIN,DIRECT 0.4 MG/DL (0.0-0.2); BILIRUBIN,TOTAL 0.6 MG/DL (0.2-1.0); BLOOD UREA NITROGEN 29 MG/DL (7-18); CALCIUM LEVEL 8.3 MG/DL (8.8-10.2); CARBON DIOXIDE LEVEL 25 MEQ/L (21-32); CHLORIDE LEVEL 110 MEQ/L (98-107); CK-MB VALUE MASS 1.3 NG/ML (<3.6); CPK CREATINE PHOSPHOKINASE 38 U/L (39-308); CREATININE FOR GFR 1.17 MG/DL (0.70-1.30); GLOMERULAR FILTRATION RATE > 60.0 (>42); GLUCOSE, FASTING 87 MG/DL (70-100); MB/CK RELATIVE INDEX 3.42 (< OR =4); NT-PRO BNP 18261 PG/ML (<125); POTASSIUM SERUM 4.6 MEQ/L (3.5-5.1); SODIUM LEVEL 140 MEQ/L (136-145); TOTAL PROTEIN 6.5 GM/DL (6.4-8.2)
[2020-08-08 10:06] LABS: INR 1.57; PROTHROMBIN TIME 19.2 SECONDS (12.5-14.3)
[2020-08-08 10:08] LABS: RSV AMPLIFICATION NEGATIVE (NEGATIVE)
--- NOTE | 2020-08-08 10:14 | REP ---
INDICATION: DYSPNEA/COUGH. COMPARISON: Multiple the latest 07/09/2020 also portable TECHNIQUE: Portable FINDINGS: The technique utilized in obtaining the radiograph has magnified the cardiac silhouette and accentuated the interstitial markings. The cardiomediastinal silhouette is unchanged. Once again, there is cardiomegaly accentuated by technique. Once again, there is a diffuse increase in the interstitial markings throughout the lung grant with evidence of pulmonary vascular redistribution. There is a spiculated right hilar mass which appears unchanged. There is no change in appearance of the tip of the MediPort device. The osseous structures are stable. IMPRESSION: 1. Right basilar opacities seen on the prior examination have improved 2. Chronically increased interstitial markings consistent with pulmonary edema. 3. Spiculated right hilar mass status quo. 4. Mild cardiomegaly accentuated by technique. 5. No change in the appearance of the MediPort device. <Electronically signed by Abhilash Castillo > 08/08/20 [id number]
[2020-08-08] MEDS ORDERED: FUROSEMIDE 40MG/4ML VIAL (J1940) IV ONE (10:45)
[2020-08-08] MEDS ORDERED: NITROGLYCERIN 2% OINT 1 GM *U/D* PKT TOP ONE (10:45)
[2020-08-08] MEDS ORDERED: ACETAMINOPHEN TAB 650MG DOSE (2X325MG) PO PRN (14:40)
[2020-08-08] MEDS ORDERED: ALBUTEROL 90 MCG/ACT 8GM HFA INHALER INH PRN (15:20)
[2020-08-08] MEDS ORDERED: ISOS1TAB35 PO (15:25)
[2020-08-08] MEDS ORDERED: TAMS1CAP17 PO (15:25)
[2020-08-08] MEDS ORDERED: ELIQ2.5T PO (15:25)
[2020-08-08] MEDS ORDERED: STIO1AER INH (15:25)
[2020-08-08] MEDS ORDERED: LISI20TA33 PO (15:25)
[2020-08-08] MEDS ORDERED: ENSULIQ9 PO (15:25)
[2020-08-08] MEDS ORDERED: VENTAER INH (15:26)
[2020-08-08 16:10] VITALS: BP 155/81
--- NOTE | 2020-08-08 16:28 | HPEPDOC ---
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 He was then discharged home off all diuretics and is now presenting to [facility] with shortness of breath and note to be hypoxemic in the ED with derik wet crackles bilaterally on examination and work notable for CXR showing increased interstitial markings c/w pulmonary edema with an improving R basilar opacity that had been previously noted and the known R hilar spiculated [place] [address], troponin was 0.1, TSH 2.3, Cr 1.17, Na 140, K 4.6, WBC 13.8 and Hgb 9.1, platelets 346. His last TTE within the EMR was in 2018 that showed an EF of 40% with global hypokinesis at the time. He is now being ad mitted for CHF exacerbation i/s/o no diuretic therapy since hospital discharge. PAST MEDICAL HISTORY: per HPI PAST SURGICAL HISTORY: Wedge resection hemicolectomy w/ ostomy and then reversal SOCIAL HISTORY:Patient is a former smoker. Patient does not drink alcohol or use an other illicit drugs. FAMILY HISTORY: Cancer, heart disease ALLERGIES: Please see below. REVIEW OF SYSTEMS: 10 point ROS was otherwise negative except of SOB and worsening dyspnea on exertion as noted in the HPI. HOME MEDICATIONS: Please see below. PHYSICAL EXAMINATION: VITAL SIGNS: Hypertensive to 182/110 (did not take any of his meds today), afebrile, on 2L NC GENERAL APPEARANCE: Thin, NAD HEENT: NCAT, PERRLA, EOMI CARDIOVASCULAR: Tachycardic, no murmurs or rubs LUNGS: Wet crackles throughout, no wheezing or rhonchi ABDOMEN: Scaphoid, soft, NTND, normoactive sounds EXTREMITIES: WWP, no edema NEUROLOGICAL: CN2-12 intact, moving all extremities PSYCHIATRIC: AOx3 LABORATORY DATA and IMAGING: Reviewed above. See below for details MICROBIOLOGY: Please see below. 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 PLAN: HFrEF exacerbation i/s/o no diuretic therapy since hospital discharge -lasix 40mg Q8H IV for goal net negative 2L/24h -2L/24h fluid restriction -2g sodium diet -telemetry -TTE, last here was in 2018 -EKG was non ischemic and troponin was negative Hypertensive urgency: i/s/o of no meds today -restart home meds with now doses for missing morning doses -will give imdur, toprol now and plan to hold lisinopril while diuresing BPH: -continue flomax and alfazosin History of recurrent lung CA s/p wedge resection and chemoradiation -f/u with onc outpatient Liver lesions that he reports to be unrelated to the lung CA vs. metastatic disease -Recently had plans for targeted radioembolization of his liver CA cancelled it because of its proximity to pertinent vasculature -f/u with oncology in the outpatient setting Transaminitis: likely 2/2 liver malignancy -monitor daily CMP Afib: -continue toprol, digoxin and eliquis COPD: -symbicort and PRN albuterol mdi DVT ppx: eliquis Dispo: inpatient for CHF, however desires to be transferred to [facility] if they have room. ED attempted to send him but they were on "RED" I assume that mean were at full capacity and could not accept his transfer. Vital Signs Vital Signs Date Time Temp Pulse Resp B/P (MAP) Pulse Ox O2 Delivery O2 Flow Rate FiO2 08/08/20 13:30 91 160/107 (124) 98 08/08/20 09:20 22 4/28/21 08:58 97.9 Room Air Laboratory Data Labs 24H Laboratory Tests 2 08/08/20 09:01: Immature Granulocyte % (Auto) 1.4, Neutrophils (%) (Auto) 83.9H, Lymphocytes (%) (Auto) 5.0L, Monocytes (%) (Auto) 8.6H, Eosinophils (%) (Auto) 0.9, Basophils (%) (Auto) 0.2, Neutrophils # (Auto) 11.6H, Lymphocytes # (Auto) 0.7L, Monocytes # (Auto) 1.2H, Eosinophils # (Auto) 0.1, Basophils # (Auto) 0.0, Nucleated Red Blood Cells % (auto) 0.0, Prothrombin Time 19.2H, Prothromb Time International Ratio 1.57, Blood Gas Bicarbonate Standard 22.4, Venous Blood pH 7.383, Venous Blood Partial Pressure CO2 38.5, Venous Blood Partial Pressure O2 67.7H, Venous Blood Total Carbon Dioxide 23.6L, Venous Blood HCO3 22.4L, Venous Blood Oxygen Saturation 93.0H, Venous Blood Base Excess -2.4L, Anion Gap 5L, Glomerular Filtration Rate > 60.0, Lactic Acid Level 1.2, Calcium Level 8.3L, Total Bilirubin 0.6, Direct Bilirubin 0.4H, Aspartate Amino Transf (AST/SGOT) 173H, Alanine Aminotransferase (ALT/SGPT) 111H, Alkaline Phosphatase 149H, Total Creatine Kinase 38L, Creatine Kinase MB 1.3, Creatine Kinase MB Relative Index 3.42, Troponin I 0.10, OB-Pdl-Q-Type Natriuretic Peptide 80883K, Total Protein 6.5, Albumin 2.3L, Albumin/Globulin Ratio 0.5, Thyroid Stimulating Hormone (TSH) 2.300, Coronavirus (COVID-19)(PCR) NEGATIVE, Influenza Type A (RT-PCR) NEGATIVE, Influenza Type B (RT-PCR) NEGATIVE, Respiratory Syncytial Virus (PCR) NEGATIVE CBC/BMP Laboratory Tests 08/08/20 09:01 Microbiology Microbiology 08/08/20 Blood Culture, Received Pending 08/08/20 Blood Culture, Received Pending Home Medications Scheduled Alfuzosin HCl (Alfuzosin HCl ER) 10 Mg Tab.er.24h, 1 TAB PO DAILY Apixaban (Eliquis) 5 Mg Tablet, 1 TAB PO BID Budesonide/Formoterol (Symbicort 160-4.5 Mcg Inhaler) 60 Puff/Inhaler Aers, 2 PU FF INH BID Digoxin (Digoxin) 125 Mcg Tab, 125 MCG PO DAILY Lisinopril (Lisinopril) 10 Mg Tab, 10 MG PO DAILY Metoprolol Succinate (Metoprolol Succinate) 100 Mg Tab.er.24h, 1 TAB PO DAILY Tamsulosin HCl (Flomax) 0.4 Mg Cap, 0.4 MG PO DAILY Allergies Coded Allergies: Penicillins (Verified Allergy, Intermediate, hives, 07/09/20) gabapentin (Verified Allergy, Intermediate, hives, 07/09/20) Contrast Media (Verified Allergy, Unknown, HIVES, 06/18/18) A-FIB/CHADSVASC A-FIB History Current/History of A-Fib/PAF?: Yes Current PO Anticoag Therapy: Yes Treatment Treatment ordered: Apixaban KIA JOHNS MD Aug 08, 2020 16:28
[2020-08-08] MEDS: TAMSULOSIN 0.4 MG CAP PO SCH (17:31)
[2020-08-08] MEDS: ISOSORBIDE MON. (IMDUR) 30 MG XR TAB PO SCH (17:32)
[2020-08-08] MEDS: DIGOXIN 0.125 MG TAB PO SCH (17:32)
[2020-08-08] MEDS: METOPROLOL SUCC (TopROL XL) 100MG *XL* TAB PO SCH (17:33)
[2020-08-08] MEDS: FUROSEMIDE 40MG/4ML VIAL (J1940) IV SCH (17:33)
[2020-08-08 20:00] VITALS: BP 140/64
[2020-08-08] MEDS: SYMBICORT 160/4.5MCG INHALER 6GM INH SCH (20:21)
[2020-08-08] MEDS: APIXABAN 2.5 MG TAB (ELIQUIS) PO SCH (20:32)
[2020-08-08] MEDS ORDERED: DOXAZOSIN MESYLATE 4 MG TAB PO SCH (21:00)
[2020-08-08] MEDS ORDERED: APIXABAN 5 MG TAB (ELIQUIS) PO SCH (21:00)
--- NOTE | 2020-08-08 22:59 | ECGEPIP ---
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
[2020-08-09] VITALS: BP 145/83
[2020-08-09] MEDS: FUROSEMIDE 40MG/4ML VIAL (J1940) IV SCH (00:51)
[2020-08-09 04:00] VITALS: BP 158/82
[2020-08-09 05:53] LABS: HEMATOCRIT 30.7 % (42.0-52.0); HEMOGLOBIN 9.8 g/dl (13.5-17.5); MEAN CORPUSCULAR HEMOGLOBIN 28.4 pg (27.0-33.0); MEAN CORPUSCULAR HGB CONC 31.9 g/dl (32.0-36.5); PLATELET COUNT, AUTOMATED 386 10^3/uL (150-450); RED BLOOD COUNT 3.45 10^6/uL (4.30-6.10); WHITE BLOOD COUNT 13.9 10^3/uL (4.0-10.0)
[2020-08-09 06:20] LABS: ALBUMIN 2.3 GM/DL (3.2-5.2); BILIRUBIN,TOTAL 0.6 MG/DL (0.2-1.0); CALCIUM LEVEL 8.8 MG/DL (8.8-10.2); CREATININE FOR GFR 1.44 MG/DL (0.70-1.30); GLOMERULAR FILTRATION RATE 51.1 (>42); MAGNESIUM LEVEL 1.9 MG/DL (1.8-2.4); POTASSIUM SERUM 4.3 MEQ/L (3.5-5.1); TOTAL PROTEIN 6.9 GM/DL (6.4-8.2)
[2020-08-09 07:15] VITALS: BP 130/82
[2020-08-09] MEDS ORDERED: FURO20TA2 PO (07:41)
[2020-08-09] MEDS: SYMBICORT 160/4.5MCG INHALER 6GM INH SCH (07:52)
[2020-08-09] MEDS ORDERED: ALFUZOSIN PO SCH (09:00)
[2020-08-09] MEDS ORDERED: DIGOXIN 0.25 MG TAB PO SCH (09:00)
[2020-08-09 09:42] VITALS: BP 130/82
[2020-08-09] MEDS: APIXABAN 2.5 MG TAB (ELIQUIS) PO SCH (09:42)
[2020-08-09] MEDS: TAMSULOSIN 0.4 MG CAP PO SCH (09:42)
[2020-08-09] MEDS: METOPROLOL SUCC (TopROL XL) 100MG *XL* TAB PO SCH (09:42)
[2020-08-09] MEDS: ISOSORBIDE MON. (IMDUR) 30 MG XR TAB PO SCH (09:42)
[2020-08-09] MEDS: DIGOXIN 0.125 MG TAB PO SCH (09:42)
--- NOTE | 2020-08-09 11:47 | IPNPDOC ---
Text Note Date of Service The patient was seen on 08/09/20. NOTE SUBJECTIVE: -No acute complaints, now on room air, SOB has resolved OBJECTIVE: VITAL SIGNS: Normotensive, afebrile, on room air GENERAL APPEARANCE: Thin, NAD HEENT: NCAT, PERRLA, EOMI CARDIOVASCULAR: Tachycardic, no murmurs or rubs LUNGS: Trace bibasilar crackles otherwise now clear without wheezing or rhonchi ABDOMEN: Scaphoid, soft, NTND, normoactive sounds EXTREMITIES: WWP, no edema NEUROLOGICAL: CN2-12 intact, moving all extremities PSYCHIATRIC: AOx3 LABORATORY DATA: Reviewed. WBC 13.9 Hgb 9.8 platelets 386 Na 138 K 4.3 Cr 1.44 AST 179 ALT 113 MICROBIOLOGY: Please see below. 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 PLAN: HFrEF exacerbation i/s/o no diuretic therapy since hospital discharge -Can now dc IV lasix. Very loop diuretic sensitive and so will place on 20mg PO Q2D -2L/24h fluid restriction -2g sodium diet -will defer TTE at this time, known HFrEF euvolemic shortly after loop diuresis -EKG was non ischemic and troponin was negative Hypertensive urgency: i/s/o of no meds on day of admission -continue home meds, holding lisinopril with slight Cr bump BPH: -continue flomax and alfazosin History of recurrent lung CA s/p wedge resection and chemoradiation -f/u with onc outpatient Liver lesions that he reports to be unrelated to the lung CA vs. metastatic disease -Recently had plans for targeted radioembolization of his liver CA cancelled it because of its proximity to pertinent vasculature -f/u with oncology in the outpatient setting Transaminitis: likely 2/2 liver malignancy -monitor daily CMP Afib: -continue toprol, digoxin and eliquis COPD: -symbicort and PRN albuterol mdi DVT ppx: eliquis Dispo: potentially discharging home Thanh GUERRA, I+O Thanh GUERRA I+O Laboratory Tests 08/08/20 09:01 08/09/20 05:42 Vital Signs Date Time Temp Pulse Resp B/P (MAP) Pulse Ox O2 Delivery O2 Flow Rate FiO2 08/09/20 07:15 97.4 88 18 130/82 (98) 94 Room Air 08/09/20 00:00 I&O- Last 24 Hours up to 6 AM 08/09/20 06:00 Intake Total 1250 ml Output Total 995 ml Balance 255 ml KIA JOHNS MD Aug 09, 2020 07:38
--- NOTE | 2020-08-09 11:47 | DS.PDOC ---
Discharge Summary General Date of Admission Aug 08, 2020 at 14:39 Date of Discharge 08/09/2020 Attending Physician: KIA JOHNS MD Discharge Summary PROCEDURES PERFORMED DURING STAY: None ADMITTING DIAGNOSES: CHF exacerbation DISCHARGE DIAGNOSES: HFrEF exacerbation Hypertensive urgency Afib on eliquis History of RUL small cell lung CA s/p wedge resection c/b recurrence on left side s/p chemoradiation Liver cancer (HCC?) with patient reporting that is an independent malignancy that is not mets from lung CA COMPLICATIONS/CHIEF COMPLAINT: Acute Exacerbation Of Chf. HISTORY OF PRESENT ILLNESS: 75 yo M with a history of HFrEF, Afib on eliquis, RUL small cell lung CA s/p wedge resection c/b recurrence on left side s/p chemoradiation and per patient now has liver cancer (HCC?) and was recently admitted at [facility] for targeted radioembolization of his liver CA but they could not perform it because of its proximity to pertinent vasculature, and otherwise was found to be in decompensated CHF during that admission and had IV diuresis that was c/b MYRNA and diuresis was stopped. He was then discharged home off all diuretics and now presented to [facility] with shortness of breath. HOSPITAL COURSE: In the ED he was hypertensive and noted to be hypoxemic with derik wet crackles bilaterally on examination and workup was notable for CXR showing increased interstitial markings c/w pulmonary edema with an improving R basilar opacity that had been previously noted and the known R hilar spiculated [place] [address], troponin was 0.1, TSH 2.3, Cr 1.17, Na 140, K 4.6, WBC 13.8 and Hgb 9.1, platelets 346. His last TTE within the EMR was in 2018 that showed an EF of 40% with global hypokinesis at the time. He is was admitted for CHF exacerbation i/s/o no diuretic therapy since hospital discharge from [facility]. He was also hypertensive i/s/o not having taken any of his antihypertensives on the day of presentation. He was given IV lasix 4-mg x 2 with splendid effect and he was on room air and with clear lung sounds by the next morning. His antihypertensives were restarted and BP normalized. He is very loop diuretic sensitive and Cr bumped to 1.4 and lV lasix was stopped. I am now discharging him home with lasix 20mg every 2 days for volume control while being conscientious of the effect on his kidneys. He will follow up with his PCP within 1 week and cardiology within 2 weeks. He will otherwise follow up with oncology per outpatient schedule. DISCHARGE MEDICATIONS: Please see below. ALLERGIES: Please see below. PHYSICAL EXAMINATION ON DISCHARGE: VITAL SIGNS: Normotensive, afebrile, on room air GENERAL APPEARANCE: Thin, NAD HEENT: NCAT, PERRLA, EOMI CARDIOVASCULAR: Tachycardic, no murmurs or rubs LUNGS: Trace bibasilar crackles otherwise now clear without wheezing or rhonchi ABDOMEN: Scaphoid, soft, NTND, normoactive sounds EXTREMITIES: WWP, no edema NEUROLOGICAL: CN2-12 intact, moving all extremities PSYCHIATRIC: AOx3 LABORATORY DATA: Please see below. IMAGING: CXR: The technique utilized in obtaining the radiograph has magnified the cardiac silhouette and accentuated the interstitial markings. The cardiomediastinal silhouette is unchanged. Once again, there is cardiomegaly accentuated by technique. Once again, there is a diffuse increase in the interstitial markings throughout the lung grant with evidence of pulmonary vascular redistribution. There is a spiculated right hilar mass which appears unchanged. There is no change in appearance of the tip of the MediPort device. The osseous structures are stable. IMPRESSION: 1. Right basilar opacities seen on the prior examination have improved 2. Chronically increased interstitial markings consistent with pulmonary edema. 3. Spiculated right hilar mass status quo. 4. Mild cardiomegaly accentuated by technique. 5. No change in the appearance of the MediPort device. PROGNOSIS: Good ACTIVITY: As tolerated DIET: 2g sodium, 2L/24h fluid restriction DISCHARGE PLAN: Home with 20mg lasix Q2D DISPOSITION: Home DISCHARGE INSTRUCTIONS: Home with 20mg lasix Q2D ITEMS TO FOLLOWUP ON ON OUTPATIENT: CHF Renal function Oncology DISCHARGE CONDITION: Stable TIME SPENT ON DISCHARGE:34 minutes. Vital Signs/I&Os Vital Signs Date Time Temp Pulse Resp B/P (MAP) Pulse Ox O2 Delivery O2 Flow Rate FiO2 08/09/20 07:15 97.4 88 18 130/82 (98) 94 Room Air 08/09/20 00:00 I&O- Last 24 Hours up to 6 AM 08/09/20 06:00 Intake Total 1250 ml Output Total 995 ml Balance 255 ml Laboratory Data Labs 24H Laboratory Tests 2 08/08/20 09:01: Immature Granulocyte % (Auto) 1.4, Neutrophils (%) (Auto) 83.9H, Lymphocytes (%) (Auto) 5.0L, Monocytes (%) (Auto) 8.6H, Eosinophils (%) (Auto) 0.9, Basophils (%) (Auto) 0.2, Neutrophils # (Auto) 11.6H, Lymphocytes # (Auto) 0.7L, Monocytes # (Auto) 1.2H, Eosinophils # (Auto) 0.1, Basophils # (Auto) 0.0, Nucleated Red Blood Cells % (auto) 0.0, Prothrombin Time 19.2H, Prothromb Time International Ratio 1.57, Blood Gas Bicarbonate Standard 22.4, Venous Blood pH 7.383, Venous Blood Partial Pressure CO2 38.5, Venous Blood Partial Pressure O2 67.7H, Venous Blood Total Carbon Dioxide 23.6L, Venous Blood HCO3 22.4L, Venous Blood Oxygen Saturation 93.0H, Venous Blood Base Excess -2.4L, Anion Gap 5L, Glomerular Filtration Rate > 60.0, Lactic Acid Level 1.2, Calcium Level 8.3L, Total Bilirubin 0.6, Direct Bilirubin 0.4H, Aspartate Amino Transf (AST/SGOT) 173H, A lanine Aminotransferase (ALT/SGPT) 111H, Alkaline Phosphatase 149H, Total Creatine Kinase 38L, Creatine Kinase MB 1.3, Creatine Kinase MB Relative Index 3.42, Troponin I 0.10, BC-Uod-C-Type Natriuretic Peptide 41443E, Total Protein 6.5, Albumin 2.3L, Albumin/Globulin Ratio 0.5, Thyroid Stimulating Hormone (TSH) 2.300, Coronavirus (COVID-19)(PCR) NEGATIVE, Influenza Type A (RT-PCR) NEGATIVE, Influenza Type B (RT-PCR) NEGATIVE, Respiratory Syncytial Virus (PCR) NEGATIVE 08/09/20 05:42: Nucleated Red Blood Cells % (auto) 0.0, Anion Gap 5L, Glomerular Filtration Rate 51.1, Calcium Level 8.8, Total Bilirubin 0.6, Aspartate Amino Transf (AST/SGOT) 179H, Alanine Aminotransferase (ALT/SGPT) 113H, Alkaline Phosphatase 147H, Total Protein 6.9, Albumin 2.3L, Albumin/Globulin Ratio 0.5, Magnesium Level 1.9 CBC/BMP Laboratory Tests 08/08/20 09:01 08/09/20 05:42 Microbiology Microbiology 08/08/20 Blood Culture, Received Pending 08/08/20 Blood Culture, Received Pending Discharge Medications Scheduled Alfuzosin HCl (Alfuzosin HCl ER) 10 Mg Tab.er.24h, 10 MG PO DAILY, (Reported) Apixaban (Eliquis) 2.5 Mg Tablet, 2.5 MG PO BID, (Reported) Digoxin (Digoxin) 125 Mcg Tab, 125 MCG PO DAILY, (Reported) Furosemide (Furosemide) 20 Mg Tablet, 1 TAB PO Q2D Isosorbide Mononitrate (Isosorbide Mononitrate ER) 30 Mg Tab.er.24h, 30 MG PO DAILY, (Reported) Lactose-Reduced Food (Ensure Plus) 237 Ml Liquid, 237 ML PO BID, (Reported) Lisinopril (Lisinopril) 20 Mg Tablet, 10 MG PO DAILY, (Reported) Metoprolol Succinate (Metoprolol Succinate) 100 Mg Tab.er.24h, 100 MG PO DAILY, (Reported) Tamsulosin Hcl (Tamsulosin HCl) 0.4 Mg Capsule, 0.4 MG PO DAILY, (Reported) Tiotropium Br/Olodaterol HCl (Stiolto Respimat Inhal [place]) 4 Gm Mist.inhal, 2 PUFFS INH DAILY, (Reported) Scheduled PRN Albuterol Sulfate (Ventolin Hfa) 18 Gm Hfa.aer.ad, 2 PUFF INH Q4H PRN for SOB/WHEEZING, (Reported) Allergies Coded Allergies: Penicillins (Verified Allergy, Intermediate, hives, 07/09/20) gabapentin (Verified Allergy, Intermediate, hives, 07/09/20) Contrast Media (Verified Allergy, Unknown, HIVES, 06/18/18) KIA JOHNS MD Aug 09, 2020 07:49
== END 2020-08-09 12:36 | disposition home or self-care (01) | DRG 292 ==
LOC: M ED 08:35 → M ED INP 14:39 → ENRESERV 15:17 → M PCU 16:06
PROVIDERS: ADMIT Internal Medicine; ATTEND Internal Medicine
DX: I50.33 Acute on chronic diastolic (congestive) heart failure (principal); C34.90 Malignant neoplasm of unspecified part of unspecified bronchus or lung; C22.8 Malignant neoplasm of liver, primary, unspecified as to type; I16.0 Hypertensive urgency; I48.91 Unspecified atrial fibrillation; Z79.01 Long term (current) use of anticoagulants; Z79.899 Other long term (current) drug therapy; Z88.0 Allergy status to penicillin; Z91.041 Radiographic dye allergy status; Z88.8 Allergy status to other drugs, medicaments and biological substances; Z87.891 Personal history of nicotine dependence; N40.0 Benign prostatic hyperplasia without lower urinary tract symptoms; J44.9 Chronic obstructive pulmonary disease, unspecified

== ENCOUNTER 2020-09-17 14:02 | Emergency (ER) | payer OTHER, MEDICARE ==
[~2020-09-17] VITALS: Ht 170.2 cm; Wt 53.6 kg
[~2020-09-17 14:02] MED LIST changes: +ELIQ2.5T PO; +ENSULIQ9 PO; +FURO20TA2 PO; +ISOS1TAB35 PO; +LISI20TA33 PO; +STIO1AER INH; +TAMS1CAP17 PO; +VENTAER INH
[2020-09-17 18:22] LABS: BASO # 0.1 10^3/uL (0.0-0.2); BASO % 0.6 % (0.0-1.0); EOS # 0.1 10^3/uL (0.0-0.5); EOS % 1.1 % (0.0-3.0); HEMATOCRIT 29.5 % (42.0-52.0); HEMOGLOBIN 9.2 g/dl (13.5-17.5); LYMPH # 0.7 10^3/uL (1.5-5.0); LYMPH % 7.9 % (24.0-44.0); MEAN CORPUSCULAR HEMOGLOBIN 28.8 pg (27.0-33.0); MEAN CORPUSCULAR HGB CONC 31.2 g/dl (32.0-36.5); MEAN CORPUSCULAR VOLUME 92.2 fl (80.0-96.0); MONO # 0.9 10^3/uL (0.0-0.8); MONO % 10.5 % (2.0-8.0); NEUTROPHILS # 6.7 10^3/uL (1.5-8.5); NEUTROPHILS % 79.1 % (36.0-66.0); PLATELET COUNT, AUTOMATED 339 10^3/uL (150-450); WHITE BLOOD COUNT 8.4 10^3/uL (4.0-10.0)
[2020-09-17 18:45] LABS: ALBUMIN 2.3 GM/DL (3.2-5.2); BILIRUBIN,DIRECT 0.2 MG/DL (0.0-0.2); BILIRUBIN,TOTAL 0.8 MG/DL (0.2-1.0); CALCIUM LEVEL 8.7 MG/DL (8.8-10.2); CREATININE FOR GFR 1.52 MG/DL (0.70-1.30); POTASSIUM SERUM 5.3 MEQ/L (3.5-5.1); TOTAL PROTEIN 7.5 GM/DL (6.4-8.2)
[2020-09-17 20:07] VITALS: BP 162/84
--- NOTE | 2020-09-17 20:42 | REPVR ---
PROCEDURE INFORMATION: Exam: CT Abdomen And Pelvis Without Contrast Exam date and time: 09/17/2020 7:42 PM Age: 75 years old Clinical indication: Other: Changing stools; Additional info: Rectal discharge, changing stools, liver CA no tx yet TECHNIQUE: Imaging protocol: Computed tomography of the abdomen and pelvis without contrast. Radiation optimization: All CT scans at this facility use at least one of these dose optimization techniques: automated exposure control; mA and/or kV adjustment per patient size (includes targeted exams where dose is matched to clinical indication); or iterative reconstruction. COMPARISON: CT ABD/PEL W/PO CONTRAST ONLY 06/27/2018 2:44 PM FINDINGS: Liver: Large lobular mass with stellate central hypointensity closely expands the contour of the left lobe of the liver measuring 11 x 11 x 13 cm. Several foci of hyperdensity, representing hemorrhage and/or calcification, demonstrated within the mass as well. Several smaller hypodense and hyperdense foci demonstrated in the right lobe of the liver. Gallbladder and bile ducts: There is diffuse thickening of the gallbladder wall which may be related to incomplete distention. Clinical correlation to exclude gallbladder disease suggested. No obvious calculi demonstrated. Pancreas: Normal. No ductal dilation. Spleen: Normal. No splenomegaly. Adrenal glands: Normal. No mass. Kidneys and ureters: 1.6 cm hypodense focus in the lateral aspect of the right kidney and a similar 3.7 cm focus in the lower pole of the left kidney. Multiple hyperdense foci demonstrated in both kidneys measuring up to 3.1 cm in the lateral aspect of the left kidney. These likely represent both simple and complex/hyperdense renal cysts although confirmation with renal ultrasound or a post-contrast MRI suggested. Stomach and bowel: Surgical anastomosis demonstrated in the sigmoid colon which appears unremarkable. Diffuse thickening of the rectal wall extending to the anorectal junction. Clinical correlation to exclude neoplasm suggested. There is increased feces throughout the colon consistent with constipation. Appendix: No evidence of appendicitis. Intraperitoneal space: Mild ascites. Vasculature: The aortoiliac vessels demonstrate moderate atherosclerotic calcification. Lymph nodes: Unremarkable. No enlarged lymph nodes. Urinary bladder: Unremarkable as visualized. Reproductive: The prostate gland demonstrates mild hyperplasia. Bones/joints: Stable Schmorl's nodes at L2 and L3. Stable moderate anterolisthesis of L3 on L4. Osteoporosis. Mild central spinal stenosis at L2-L3 and L3-L4, severe central spinal stenosis L4-L5. Bulging annulus with mild central spinal stenosis L5-S1. Soft tissues: Right inguinal hernia without incarceration. Small upper right paracentral abdominal hernia containing fluid. Other findings: Multiple portosystemic collaterals demonstrated in the upper abdomen. IMPRESSION: 1. Multiple hepatic masses as described above with a large lump lobular mass replacing expanding the left lobe of the liver. Lobular contour of the right lobe of the liver demonstrated as well. Findings likely represent metastatic disease or a multifocal hepatic primary. Hepatic contour may suggest underlying cirrhotic morphology. Further evaluation with post-contrast hepatic imaging suggested. 2. There is diffuse thickening of the gallbladder wall which may be related to incomplete distention. Clinical correlation to exclude gallbladder disease suggested. No obvious calculi demonstrated. 3. 1.6 cm hypodense focus in the lateral aspect of the right kidney and a similar 3.7 cm focus in the lower pole of the left kidney. Multiple hyperdense foci demonstrated in both kidneys measuring up to 3.1 cm in the lateral aspect of the left kidney. These likely represent both simple and complex/hyperdense renal cysts although confirmation with renal ultrasound or a post-contrast MRI suggested. 4. Mild prostatic hyperplasia. 5. Diffuse thickening of the rectal wall extending to the anorectal junction. Clinical correlation to exclude neoplasm suggested. 6. There is increased feces throughout the colon consistent with constipation. COMMENTS: Consistent with the [employer]'s Incidental Findings Committee white paper (J Am Larry Radiol 2018): Any incidental renal lesion less than 1 cm or classified as too small to characterize, or any incidental cystic renal lesion characterized as simple-appearing, is likely benign. No follow-up imaging is recommended for these lesions per consensus recommendations based on imaging criteria. Electronically signed by: Lenard Brewer On 09/17/2020 20:42:35 PM
[2020-09-17] MEDS ORDERED: VANCOMYCIN ORAL SOL 250MG/5ML ORAL SYRINGE PO STA (22:05)
[2020-09-17] MEDS ORDERED: VANC1CAP6 PO (22:07)
--- NOTE | 2020-09-18 14:13 | ED PDOC ---
Post-Departure Follow-Up blanca rincon faxed formal report of ct abd/p for fu Carlos Phelps MD Sep 18, 2020 14:13
== END 2020-09-17 23:04 | disposition home or self-care (01) ==
LOC: M ED 14:02
DX: A04.72 Enterocolitis due to Clostridium difficile, not specified as recurrent (principal); K62.89 Other specified diseases of anus and rectum; R93.3 Abnormal findings on diagnostic imaging of other parts of digestive tract; M51.46 Schmorl's nodes, lumbar region; M48.061 Spinal stenosis, lumbar region without neurogenic claudication; R93.429 Abnormal radiologic findings on diagnostic imaging of unspecified kidney; C34.90 Malignant neoplasm of unspecified part of unspecified bronchus or lung; C22.8 Malignant neoplasm of liver, primary, unspecified as to type; I16.0 Hypertensive urgency; I48.91 Unspecified atrial fibrillation; N40.0 Benign prostatic hyperplasia without lower urinary tract symptoms; J44.9 Chronic obstructive pulmonary disease, unspecified; I25.2 Old myocardial infarction; Z79.01 Long term (current) use of anticoagulants; Z79.899 Other long term (current) drug therapy
CPT/HCPCS: 74176; 80048; 80076; 81001; 83690; 85025; 87086; 87505; 99283; G0103

== ENCOUNTER 2020-09-25 09:35 | Emergency (ER) | payer OTHER, MEDICARE, MEDICAID ==
[~2020-09-25] VITALS: Ht 170.2 cm; Wt 56.4 kg
[~2020-09-25 09:35] MED LIST changes: +VANC1CAP6 PO
[2020-09-25 11:14] LABS: BASO % 0.4 % (0.0-1.0); EOS # 0.1 10^3/uL (0.0-0.5); EOS % 0.8 % (0.0-3.0); HEMATOCRIT 28.8 % (42.0-52.0); HEMOGLOBIN 9.1 g/dl (13.5-17.5); LYMPH # 0.6 10^3/uL (1.5-5.0); LYMPH % 6.5 % (24.0-44.0); MEAN CORPUSCULAR HEMOGLOBIN 29.2 pg (27.0-33.0); MEAN CORPUSCULAR HGB CONC 31.6 g/dl (32.0-36.5); MEAN CORPUSCULAR VOLUME 92.3 fl (80.0-96.0); MONO # 0.9 10^3/uL (0.0-0.8); MONO % 8.6 % (2.0-8.0); NEUTROPHILS # 8.2 10^3/uL (1.5-8.5); NEUTROPHILS % 82.8 % (36.0-66.0); PLATELET COUNT, AUTOMATED 391 10^3/uL (150-450); RED BLOOD COUNT 3.12 10^6/uL (4.30-6.10); WHITE BLOOD COUNT 9.9 10^3/uL (4.0-10.0)
--- NOTE | 2020-09-25 11:24 | REP ---
INDICATION: DYSPNEA/COUGH COMPARISON: 08/08/2020 TECHNIQUE: Portable AP view of the chest FINDINGS: Mediastinum and cardiac silhouette are relatively stable. Right perihilar mass is essentially unchanged. Lung grant demonstrate chronic interstitial changes similar to prior examination. No obvious acute consolidation, effusion, or pneumothorax. [id number] again identified with tip in the SVC. IMPRESSION: Right hilar mass and chronic changes remains stable. No obvious new acute process identified. <Electronically signed by Ivan Gann > 09/25/20 [id number]
[2020-09-25 11:47] LABS: ALBUMIN 2.4 GM/DL (3.2-5.2); ALT/SGPT 32 U/L (12-78); BILIRUBIN,DIRECT 0.3 MG/DL (0.0-0.2); BILIRUBIN,TOTAL 0.5 MG/DL (0.2-1.0); BLOOD UREA NITROGEN 34 MG/DL (7-18); CALCIUM LEVEL 8.9 MG/DL (8.8-10.2); CARBON DIOXIDE LEVEL 25 MEQ/L (21-32); CHLORIDE LEVEL 107 MEQ/L (98-107); CREATININE FOR GFR 1.38 MG/DL (0.70-1.30); GLOMERULAR FILTRATION RATE 53.6 (>42); GLUCOSE, FASTING 108 MG/DL (70-100); NT-PRO BNP 23134 PG/ML (<125); POTASSIUM SERUM 4.9 MEQ/L (3.5-5.1); SODIUM LEVEL 136 MEQ/L (136-145); TOTAL PROTEIN 7.3 GM/DL (6.4-8.2)
[2020-09-25] MEDS ORDERED: COMBIVENT RESPIMAT 100-20MCG INHALER 4GM INH ONE (12:15)
[2020-09-25 12:18] LABS: CK-MB VALUE MASS < 1.0 NG/ML (<3.6); CPK CREATINE PHOSPHOKINASE 56 U/L (39-308); MB/CK RELATIVE INDEX 1.79 (< OR =4); TROPONIN I 0.04 NG/ML (< 0.10)
[2020-09-25] MEDS ORDERED: IPRATROPIUM 0.5MG/ALBUTEROL 2.5MG INH SOL UD 3ML (DUONEB) NEB ONE (12:35)
[2020-09-25 12:39] LABS: ABG BASE EXCESS 0.2 (-2.0-2.0); ABG HCO3 23.1 MEQ/L (22.0-26.0); ABG O2 SATURATION 96.4 % (95.0-99.0); ABG PARTIAL PRESSURE CO2 31.2 mmHg (35.0-45.0); ABG PARTIAL PRESSURE O2 82.5 mmHg (75.0-100.0); ABG STANDARD HCO3 24.6 MEQ/L (22.0-26.0); ABG TOTAL CO2 24.1 MEQ/L (23.0-31.0); ABG pH (ARTERIAL) 7.488 UNITS (7.350-7.450)
--- NOTE | 2020-09-25 12:49 | ED PDOC ---
Post-Departure Follow-Up cxr-p faxed to blanca rincon for fu Carlos Phelps MD Sep 25, 2020 12:48
--- NOTE | 2020-09-25 14:17 | REP ---
INDICATION: SOB. COMPARISON: 07/09/2020. TECHNIQUE: CT chest performed without the use of intravenous contrast. Sagittal and coronal reconstruction images are performed. FINDINGS: Diffuse interstitial fibrotic changes stable throughout both lungs. There is focused right perihilar consolidative opacity which is stable. No new abnormal parenchymal opacities are seen bilaterally. Surgical suture line is again seen anteriorly in the right upper lung. There is no pleural effusion bilaterally. A small amount of pericardial fluid/thickening is stable. Heart is not significantly enlarged. Small mediastinal lymph nodes are stable. There is atherosclerotic calcification of the thoracic aorta with no aneurysm. Mild secretions are seen in the right mainstem bronchus. No new osseous abnormality is seen. In the visualized upper abdomen the midline abdominal mass has increased in size with an AP diameter approximately 13 cm. There are ill-defined nodules in the liver which appear grossly stable. Hyperdense nodules are again seen in the upper pole the left kidney grossly similar to the prior exam. IMPRESSION: Chronic changes in the chest appear stable with no acute finding identified. However, there is increased size of the large mass in the upper abdomen midline. <Electronically signed by George Robins > 09/25/20 [id number]
[2020-09-25 15:01] VITALS: O2SAT 96
[2020-09-25 16:27] VITALS: BP 154/71
--- NOTE | 2020-09-25 21:04 | ECGEPIP ---
[facility] - ED Test Date: 2020-09-25 Pat Name: ARSEN FUNEZ Department: Room: - Gender: Male Change Control Specialist: : [id number] Requested By: KRUPA Cisneros Order Number: [id number] Reading MD: Chantel Jamil Measurements Intervals [place] Rate: 72 P: 77 [place]: 192 QRS: 58 QRSD: 90 T: 21 QT: 340 QTc: 372 Interpretive Statements Sinus rhythm with premature atrial complexes Nonspecific ST abnormality decreased rate 08/06/20 Electronically Signed on 09-25-2020 21:03:49 EDT by Chantel Jamil
--- NOTE | 2020-09-26 14:10 | ED PDOC ---
Post-Departure Follow-Up dr bailey and blanca rincon faxed fomral report of ct chest for fu Carlos Phelps MD Sep 26, 2020 14:10
== END 2020-09-25 16:30 | disposition home or self-care (01) ==
LOC: M ED 09:35
DX: R06.02 Shortness of breath (principal); R93.2 Abnormal findings on diagnostic imaging of liver and biliary tract; I48.91 Unspecified atrial fibrillation; I50.9 Heart failure, unspecified; C34.90 Malignant neoplasm of unspecified part of unspecified bronchus or lung; Z87.891 Personal history of nicotine dependence; Z88.0 Allergy status to penicillin; Z88.8 Allergy status to other drugs, medicaments and biological substances; Z91.041 Radiographic dye allergy status; Z79.01 Long term (current) use of anticoagulants; Z79.899 Other long term (current) drug therapy